=== PATIENT | female | born 1990 | race Caucasian/White ===

== ENCOUNTER 2021-01-12 09:18 | Emergency (ER) | payer BC, SELFPAY ==
[2021-01-12 09:30] VITALS: BP 153/97; PULSE 93; RESP 16; TEMP 36.6; O2SAT 99
--- NOTE | 2021-01-12 09:59 | ED.GENADULT ---
HPI - General Adult General Chief complaint: Upper Respiratory Infection Stated complaint: fever sore throat Time Seen by Provider: 01/12/21 09:59 Source: patient Mode of arrival: ambulatory Limitations: no limitations History of Present Illness HPI narrative: Patient comes in for evaluation of fever last night and scratchy throat. Patient states her throat is scratchy from postnasal drainage. Patient reports a history of allergy. Patient denies any concern for COVID-19 denies any other symptoms no shortness of breath no chest pain normally healthy individual. Patient has not taking thing [id number] for her symptoms. Related Data Home Medications Medication Instructions Recorded Confirmed bupropion HCl 150 mg PO DAILY 01/12/21 01/12/21 drospirenone-ethinyl estradiol 3 tablet PO DAILY 01/12/21 01/12/21 [Amanda] Allergies Allergy/AdvReac Type Severity Reaction Status Date / Time No Known Allergies Allergy Unverified 01/12/21 09:44 Review of Systems Review of Systems: CONSTITUTIONAL: Denies fever, chills, or sweats. EYES: Denies visual changes, redness, or discharge. ENT: Denies rhinorrhea, congestion, sore throat, or otalgia. CARDIOVASCULAR: Denies chest pain, palpitations, or edema. RESPIRATORY: Denies cough or dyspnea. GASTROINTESTINAL: Denies abdominal pain, nausea, vomiting, or diarrhea. GENITOURINARY: Denies dysuria or hematuria. SKIN: Denies rash or itching. MUSCULOSKELETAL: Denies back pain, joint pain, or myalgia. NEUROLOGIC: Denies headache, numbness, or weakness. PSYCHIATRIC: Denies anxiety or depression. PMFSH Comments At time of signature, agree with nursing past medical, surgical, social and family history. There is no relevant family history pertinent to the presenting complaint Exam Narrative: GENERAL: Well-appearing, well-nourished, and in no acute distress. HEAD: Normocephalic, atraumatic. EYES: PERRLA and EOMI. ENT: Nares clear, no rhinorrhea or epistaxis. Mucous membranes moist. NECK: Supple. CHEST: Clear to auscultation. No respiratory distress. HEART: Regular rate and rhythm. No murmur heard. Normal peripheral pulses. ABDOMEN: Soft, nontender, nondistended, normal active bowel sounds. EXTREMITIES: Normal range of motion. No edema. SKIN: Warm, dry, no rash. NEURO: No focal deficits. Alert and oriented x3. Brad Coma Scale Eye Opening: Spontaneous 4 Flushing Coma Scale Motor: Obeys Commands 6 Flushing Coma Scale Verbal: Oriented 5 Brad Coma Scale Total 15 Course Vital Signs Vital signs: Vital Signs Temperature 36.6 C 01/12/21 09:30 Pulse Rate 93 01/12/21 09:30 Respiratory Rate 16 01/12/21 09:30 Blood Pressure 153/97 H 01/12/21 09:30 Pulse Oximetry 99 01/12/21 09:30 Temperature 36.6 C 01/12/21 09:30 Pulse Rate 93 01/12/21 09:30 Respiratory Rate 16 01/12/21 09:30 Blood Pressure 153/97 H 01/12/21 09:30 Pulse Oximetry 99 01/12/21 09:30 Addressed elevated BP today. Today's blood pressure higher than recommended range. Discussed importance of follow -up with PCP and possible chcf effects/cardiovascular events related to HTN. Currently patient denies headache, dizziness, vision changes, CP or shortness of breath. Medical Decision Making Differential Diagnosis Differential Diagnosis: URI, postnasal drainage, seasonal allergies Vital Signs Vital Signs: Vital Signs Temperature 36.6 C 01/12/21 09:30 Pulse Rate 93 01/12/21 09:30 Respiratory Rate 16 01/12/21 09:30 Blood Pressure 153/97 H 01/12/21 09:30 Pulse Oximetry 99 01/12/21 09:30 Temperature 36.6 C 01/12/21 09:30 Pulse Rate 93 01/12/21 09:30 Respiratory Rate 16 01/12/21 09:30 Blood Pressure 153/97 H 01/12/21 09:30 Pulse Oximetry 99 01/12/21 09:30 Critical Care Time Critical Care Time Critical Care Time: No Discharge Plan Discharge Clinical Impression: Normal exam Patient Disposition: Home, Self-Care Condition: Stable Instr
== END 2021-01-12 10:06 | disposition home or self-care (01) ==
PROVIDERS: Emergency Provider Nurse Practitioner Family; PCP Nurse Practitioner Family
DX: J02.9 Acute pharyngitis, unspecified (principal)
CPT/HCPCS: 99211; G0463

== ENCOUNTER 2021-05-05 18:52 | Emergency (ER) | payer BC, SELFPAY ==
[2021-05-05 18:57] VITALS: BP 157/93; PULSE 95; RESP 18; TEMP 36.3; O2SAT 99
[2021-05-05 19:52] VITALS: RESP 18; O2SAT 98
--- NOTE | 2021-05-05 20:20 | ED.GENADULT ---
HPI - General Adult General Chief complaint: Wound/Laceration Stated complaint: finger laceration Time Seen by Provider: 05/05/21 19:08 Source: patient Mode of arrival: ambulatory Limitations: no limitations History of Present Illness HPI narrative: Patient 30-year-old female presented with chief complaint of laceration to the dorsal aspect of her left fourth digit that she sustained while using a investments manager. Patient reports she is up-to-date on her tetanus. Patient denies any other injuries or loss of range of motion to her hand. Related Data Home Medications Medication Instructions Recorded Confirmed bupropion HCl 150 mg PO DAILY 01/12/21 01/12/21 drospirenone-ethinyl estradiol 3 tablet PO DAILY 01/12/21 01/12/21 [Amanda] Allergies Allergy/AdvReac Type Severity Reaction Status Date / Time No Known Allergies Allergy Unverified 01/12/21 09:44 Review of Systems Review of Systems: CONSTITUTIONAL: Denies fever, chills, or sweats. EYES: Denies visual changes, redness, or discharge. ENT: Denies rhinorrhea, congestion, sore throat, or otalgia. CARDIOVASCULAR: Denies chest pain, palpitations, or edema. RESPIRATORY: Denies cough or dyspnea. GASTROINTESTINAL: Denies abdominal pain, nausea, vomiting, or diarrhea. GENITOURINARY: Denies dysuria or hematuria. SKIN: Reports laceration denies rash or itching. MUSCULOSKELETAL: Denies back pain, joint pain, or myalgia. NEUROLOGIC: Denies headache, numbness, dizziness, or weakness. PSYCHIATRIC: Denies anxiety or depression. Exam Narrative: GENERAL: Well-appearing, well-nourished, and in no acute distress. HEAD: Normocephalic, atraumatic. EYES: PERRLA and EOMI. CHEST: No respiratory distress. No tachypnea. EXTREMITIES: Normal range of motion. No edema. SKIN: Approximately 2 cm laceration to dorsal aspect of left fourth digit. Warm, dry, no rash. NEURO: No focal deficits. Alert and oriented x3. PSYCH: Normal mood and affect. Course Vital Signs Vital signs: Vital Signs Temperature 97.4 F L 05/05/21 18:57 Pulse Rate 95 05/05/21 18:57 Respiratory Rate 18 05/05/21 18:57 Blood Pressure 157/93 H 05/05/21 18:57 Pulse Oximetry 99 02/10/22 18:57 Temperature 97.4 F L 05/05/21 18:57 Pulse Rate 95 05/05/21 18:57 Respiratory Rate 18 05/05/21 19:52 Blood Pressure 157/93 H 05/05/21 18:57 Pulse Oximetry 98 05/05/21 19:52 Procedures Laceration Laceration 1: Site: hand Side (If applicable): left Size (cm): 2 Description: linear Depth: simple, single layer Local Anesthetic: none Pre-repair: irrigated extensively ====== Skin Level ====== Skin layer closed with: dermabond ====== Subcutaneous Layer ====== ====== Muscle Layer ====== ====== Tendon Layer ====== Dressing: No complications. Wound care instructions given. Medical Decision Making MDM Narrative Medical decision making narrative: Wound is not deep or gaping. Dermabond applied. wOUND CARE INSTRUCTIONS GIVEN. Patient is not a work note as she stays home with her children. Patient denies any bony tenderness and denies any other injuries or concerns. Vital Signs Vital Signs: Vital Signs Temperature 97.4 F L 05/05/21 18:57 Pulse Rate 95 05/05/21 18:57 Respiratory Rate 18 05/05/21 18:57 Blood Pressure 157/93 H 05/05/21 18:57 Pulse Oximetry 99 05/05/21 18:57 Temperature 97.4 F L 05/05/21 18:57 Pulse Rate 95 05/05/21 18:57 Respiratory Rate 18 05/05/21 19:52 Blood Pressure 157/93 H 05/05/21 18:57 Pulse Oximetry 98 05/05/21 19:52 Discharge Plan Discharge Clinical Impression: Laceration Patient Disposition: Home, Self-Care Condition: Improved Instructions: Antibiotic Form, Skin Adhesive Care (ED) Additional Instructions: Keep areas clean. Wash with antibacterial soap and apply antibacterial ointment. Avoid putting tension on wound site. Follow-up with primary ca
== END 2021-05-05 19:49 | disposition home or self-care (01) ==
PROVIDERS: Emergency Provider Emergency Medicine; PCP Nurse Practitioner Family
DX: S61.215A Laceration without foreign body of left ring finger without damage to nail, initial encounter (principal); W29.0XXA Contact with powered kitchen appliance, initial encounter
CPT/HCPCS: 12001; 99282

== ENCOUNTER 2021-06-21 08:55 | Emergency (ER) | payer BC, SELFPAY ==
--- NOTE | ~2021-06-21 | XR_ITS ---
EXAMINATION: XR chest 2V DATE: 06/21/2021 09:39 INDICATION: Cough and congestion. TECHNIQUE: Frontal and lateral views of the chest were obtained. COMPARISON: None. FINDINGS: The chest demonstrates clear lungs without pneumonia, pleural effusion, or pneumothorax. Th e heart size is normal. IMPRESSION: 1. No acute cardiopulmonary disease. Reviewed, dictated and finalized at location A.
[2021-06-21 09:07] VITALS: BP 157/86; PULSE 82; RESP 18; TEMP 36.8; O2SAT 99
--- NOTE | 2021-06-21 09:26 | ED.URI ---
HPI - URI/Sore Throat General Chief Complaint: Upper Respiratory Infection Stated Complaint: cough, trouble breathing, blood in mucus Time Seen by Provider: 06/21/21 09:20 Source: patient and RN notes reviewed Mode of arrival: ambulatory Limitations: no limitations History of Present Illness HPI Narrative: 30-year-old female presents concern for cough for 1 month. Reports symptoms started as a virus with nasal congestion, rhinorrhea, cough. Reports all her symptoms have resolved except the cough. Reports the cough worsens over the last 2 days. She reports she has been taking Mucinex that relief. She denies history of asthma, smoking, vaping. Denies known sick contacts. She reports at the beginning of her illness she took a Z-Naman. MD elicited complaint: cough Related Data Home Medications Medication Instructions Recorded Confirmed bupropion HCl 150 mg PO DAILY 01/12/21 06/21/21 drospirenone-ethinyl estradiol 3 tablet PO DAILY 01/12/21 06/21/21 [Amanda] Iron Supplement 06/21/21 omeprazole 20 mg PO DAILY 06/21/21 06/21/21 Allergies Allergy/AdvReac Type Severity Reaction Status Date / Time No Known Allergies Allergy Verified 06/21/21 09:05 Review of Systems Review of Systems: CONSTITUTIONAL: Denies malaise, chills, sweats, or fever. EYES: Denies visual changes, redness, or discharge. ENT: Denies rhinorrhea, congestion, sinus pain, otalgia and sore throat. CARDIOVASCULAR: Denies chest pain, palpitations, or edema. RESPIRATORY: Reports cough. Denies dyspnea. GASTROINTESTINAL: Denies abdominal pain, nausea, vomiting, diarrhea SKIN: Denies rash or itching. MUSCULOSKELETAL: Denies myalgia. NEUROLOGIC: Denies headache. All systems reviewed & are unremarkable except as noted in HPI and below PMFSH Comments At time of signature, agree with nursing past medical, surgical, social and family history. There is no relevant family history pertinent to the presenting complaint Exam Narrative: GENERAL: Well-appearing, well-nourished, and in no acute distress. HEAD: Normocephalic EYES: PERRLA, conjunctivae clear ENT: Nares clear, turbinates edematous and erythematous, clear discharge. Mucous membranes moist. TM pearly chaudhry with dull light reflex bilaterally; no tragal tenderness. Oropharynx not erythematous without lesions. Tonsils not enlarged and without exudate, no drooling, no hoarseness, no trismus, uvula midline. NECK: Supple. No lymphadenopathy CHEST: Clear to auscultation, breath sounds equal. No wheezing, rhonchi, rales, or stridor. No respiratory distress, speaks in full sentences. HEART: Regular rate and rhythm. No murmur heard. SKIN: Warm, dry, no rash. NEURO: Alert and oriented x3. PSYCH: Normal mood and affect Course Course Emergency Course: Patient is aware of diagnosis, understands and agrees to treatment plan. Anticipatory guidance given. Patient agrees to follow-up as directed and is aware of reasons to seek care at the emergency department. Portions of this record may have been created with voice recognition software Level of Care: Express Care Visit Vital Signs Vital signs: Vital Signs Temperature 98.2 F 06/21/21 09:07 Pulse Rate 82 06/21/21 09:07 Respiratory Rate 18 06/21/21 09:07 Blood Pressure 157/86 H 06/21/21 09:07 Pulse Oximetry 99 06/21/21 09:07 Temperature 98.2 F 06/21/21 09:07 Pulse Rate 82 06/21/21 09:07 Respiratory Rate 18 06/21/21 09:07 Blood Pressure 157/86 H 06/21/21 09:07 Pulse Oximetry 99 06/21/21 09:07 Reviewed. Patient has been instructed to follow up with her primary care provider within the next week regarding her elevated blood pressure today. MDM - URI/Sore Throat MDM Narrative Medical decision making narrative: Differential diagnosis considered: Curry virus, strep pharyngitis, allergic rhinitis, upper respiratory tract infection, sinusitis, rhinosinusitis, nasopharyngitis. viral pharyngitis, otitis media, otitis externa, pneumonia, bronchiti
== END 2021-06-21 09:59 | disposition home or self-care (01) ==
PROVIDERS: Emergency Provider Nurse Practitioner; PCP Nurse Practitioner Family
DX: J40 Bronchitis, not specified as acute or chronic (principal)
CPT/HCPCS: 71046; 99213; G0463

== ENCOUNTER 2022-09-13 09:53 | Outpatient (CLI) | payer BC, SELFPAY ==
[2022-09-13 10:28] LABS: Basophils Percent Auto 0.5 % (0.2-1.2); Eosinophils Absolute Auto 0.2 K/mm3 (0-0.3); Eosinophils Percent Auto 2.4 % (0-4.4); Hematocrit 34.8 % (37.0-47.0); Hemoglobin 10.1 g/dL (12.0-15.0); Immature Granulocyte Absolute 0.03 K/mm3 (0.00-0.031); Immature Granulocyte Percent A 0.4 % (0-0.5); Lymphocytes Absolute Auto 1.84 K/mm3 (0.9-3.2); Mean Corpuscular Hemoglobin 23.3 pg (26-34); Mean Corpuscular Volume 80.2 fl (80-100); Mean Platelet Volume 8.6 fl (7.4-10.4); Monocytes Absolute Auto 0.3 K/mm3 (0.1-0.6); Monocytes Percent Auto 3.7 % (2.6-8.5); Platelet Count Result 373 k/mm3 (150-375); Red Blood Count 4.34 M/mm3 (4.2-5.4); Red Cell Distribution Width 18.3 % (11.5-14.5); White Blood Count 7.4 K/mm3 (4.5-10.0)
== END 2022-09-13 09:54 | disposition home or self-care (01) ==
PROVIDERS: PCP Nurse Practitioner Family; Visit Provider Obstetrics & Gynecology
DX: N93.9 Abnormal uterine and vaginal bleeding, unspecified (principal); Z01.818 Encounter for other preprocedural examination
CPT/HCPCS: 36415; 85025; 86850; 86900; 86901

== ENCOUNTER 2022-09-15 00:29 | Day surgery (SDC) | payer BC, SELFPAY ==
--- NOTE | 2022-09-12 07:27 | PM.IMHP ---
H&P: HPI History of Present Illness Date/Time: 09/12/22 07:27 Chief Complaint: Vaginal bleeding with known uterine polyps Narrative: This is a 32-year-old 3 para 2 admitted for robotic total vaginal hysterectomy and salpingectomy secondary to bleeding uterine polyps enlarged uterus and pelvic pain. She underwent a benign endometrial biopsy. She opts for hysterectomy. Risks and benefits reviewed in great detail. She received the [employer] handout entitled hysterectomy as well as the de [facility] handout. She had all questions answered. She asked to proceed. She also has a right ovarian cyst and will undergo right cystectomy and possible right salpingo-oophorectomy PMFSH Past Medical History Medical History Anemia delivery delivered Encounter for tubal ligation 10/23/16 Surgical History Surgical History History of orthopedic surgery L foot Family History Family History Other Breast cancer Maternal Aunt Ovarian cancer Maternal Aunt Other Diabetes mellitus Heart disease Hypertension Meds Home Medications and Allergies Home Medications Medication Instructions Recorded Confirmed Type bupropion HCl 150 mg 24 hr tablet, 150 mg PO DAILY 01/12/21 06/21/21 History extended release drospirenone 3 mg-ethinyl 3 tablet PO DAILY 01/12/21 06/21/21 History estradiol 0.03 mg tablet (Amanda) Iron Supplement 06/21/21 History albuterol sulfate 90 mcg/actuation 2 puff inhalation QID PRN 06/21/21 Rx aerosol inhaler shortness of breath or wheezing #8.5 grams codeine 10 mg-guaifenesin 100 mg/5 5 ml PO Q6H PRN cough #120 mL 06/21/21 Rx mL oral liquid (Virtussin AC) methylprednisolone 4 mg tablets in See Rx Instructions PO .COMPLEX 06/21/21 Rx a dose pack (Medrol (Naman)) #21 ea omeprazole 20 mg capsule,delayed 20 mg PO DAILY 06/21/21 06/21/21 History release norethindrone (contraceptive) 0.35 0.35 mg PO DAILY #84 tabs 08/23/21 Rx mg tablet Allergies Allergy/AdvReac Type Severity Reaction Status Date / Time No Known Allergies Allergy Verified 06/21/21 09:05 Exam Const: General: cooperative, healthy appearing, comfortable and overweight Orientation/consciousness: oriented to person, oriented to place and oriented to time HENMT: Head: normal to inspection Resp: Effort & Inspection: normal respiratory effort Cardio: Rate: regular rate Rhythm: regular rhythm Heart sounds: S1 normal heart sound present and S2 normal heart sound present GI: Inspection: normal to inspection : External Female Exam: normal external appearance Speculum Exam - Vagina: normal appearance of the vagina and vaginal bleeding Bimanual exam- vagina & uterus: enlarged Bimanual Exam- Adnexa, other: normal adnexae Assessment and Plan Assessment and plan (1) Vaginal bleeding: Code(s): N93.9 - Abnormal uterine and vaginal bleeding, unspecified Status: Acute (2) FAISAL (iron deficiency anemia): Code(s): D50.9 - Iron deficiency anemia, unspecified Status: Acute Plan Robotic total vaginal hysterectomy salpingectomy with right cystectomy possible salpingo-oophorectomy
[2022-09-12 10:38] VITALS: BMI 51.3
--- NOTE | 2022-09-12 10:42 | PC.NURSE ---
Report to the Outpatient Waiting Room, entrance under the green pavilion located off [facility], at time 6:00 on date 09/15/22. Planned Procedure Time: 7:30. Time changes happen often and if your time is changed the preop area will call you the afternoon before. - You and your visitor will be asked to self-screen and do not enter if you have any COVID symptoms. - A mask is optional within the hospital at this time. Patients may have clear liquids (water, carbonated beverages, clear teas, apple juice) until 3 hours prior to surgery (4:30) with a maximum of 20 ounces. - No food from midnight until time of surgery Take the following medications with a SIP of water the morning of surgery: WELLBUTRIN DO NOT STOP ANY OF YOUR OTHER PRESCRIPTION MEDICATIONS PRIOR TO SURGERY EXCEPT THE FOLLOWING Medications to discontinue per physician: VITAMINS/SUPPLEMENTS Date to take last dose: 09/11/22 Please no make-up, nail english, hairspray, perfume, deodorant, or body powder the day of surgery. No jewelry (including any body piercings) or valuables the day of surgery, leave them at home. Please take a shower or bath the night before, or the morning of, surgery with an antibacterial soap. Wear comfortable, loose fitting clothing. - Jewelry must be removed prior to entering the operating room. Rings and piercings that are not removed may be cut off. - The hospital will not accept responsibility for valuables. - Please leave all valuables, including medications, at home the day of surgery. If you are going home after surgery, a licensed motor bus driver must drive you home. - NO public transportation without another adult if you receive anesthesia. - We recommend that an adult stay with you for 24 hours following discharge. - We also recommend that you do not drive, make important decision, drink alcoholic beverages, or take any drugs that were not prescribed by your health care provider for at least 24 hours after your discharge time. Follow any additional instructions given to you from your surgeon. If you or anyone in your household have experienced Covid symptoms in the past week, please notify your surgeon or the nurse liaison at the phone number below for possible testing. Telephone instructions given to PT - BERTHA MCKINNEY and asked if any additional questions and then verbalized understanding. Patient advised to call surgeon office or pre surgery nurse liaison [phone] if any additional questions.
[2022-09-15] VITALS (11 sets, daily range): BP systolic 113–146; BP diastolic 68–105; PULSE 68–100; RESP 16–18; TEMP 36.3–37.1; O2SAT 88–100
--- NOTE | 2022-09-15 06:20 | WPDHPUPDATE1 ---
History and Physical Update Update Date/Time: 09/15/22 06:20 History and Physical has been reviewed, including an updated exam of the patient. There are NO changes in the patient's condition. Risks, benefits, and alternatives have been discussed and questions answered. Patient agrees to proceed with procedure.
[2022-09-15] MEDS: ACETAMINOPHEN 500 MG TABLET 1000 MG PO (06:23)
--- NOTE | 2022-09-15 06:49 | WPDANESEPPF ---
Anes - Initial Pre Proc Eval Procedure: Operation Date: 09/15/22 07:30 Proposed Procedures p Robotic Assisted Total Vaginal Hysterectomy with Bilateral Salpingectomy - Austen Gill MD Date/Time: 09/15/22 06:49 Surgeon: Austen Gill MD Pre Op Diagnosis: pelvic pain,heavy bleeding, anemia Patient Data Age: 32 Gender: F Height: 1.6 m Weight: 135 kg Last Vital Signs Temp 37.1 C 09/15/22 06:29 Pulse 100 09/15/22 06:29 Resp 18 09/15/22 06:29 BP 146/105 H 09/15/22 06:29 Pulse Ox 100 09/15/22 06:29 O2 Del Method Room Air 09/15/22 06:29 Allergies Allergy/AdvReac Type Severity Reaction Status Date / Time No Known Allergies Allergy Verified 09/15/22 06:19 Home Medications Medication Instructions Recorded Confirmed Type bupropion HCl 300 mg 24 hr tablet, 300 mg PO DAILY 09/12/22 09/15/22 History extended release cyanocobalamin (vitamin B-12) 500 500 mcg PO DAILY 09/12/22 09/15/22 History mcg tablet famotidine 40 mg tablet 40 mg PO HS 09/12/22 09/15/22 History ferrous sulfate 325 mg (65 mg 325 mg PO DAILY 09/12/22 09/15/22 History iron) tablet (Iron (ferrous sulfate)) pantoprazole 40 mg tablet,delayed 40 mg PO DAILY 09/12/22 09/15/22 History release semaglutide (weight loss) 0.5 0.5 mg subcut WEEKLY 09/12/22 09/15/22 History mg/0.5 mL subcutaneous pen injector (Wegovy) hydrocodone 5 mg-acetaminophen 325 1 tablet PO Q4H PRN pain #20 tabs 09/15/22 Rx mg tablet Patient hx anesthesia problems: post op nausea/vomiting Family hx anesthesia problems: none Results Review: All pre-operative results and documents have been reviewed as part of the pre-operative evaluation. [facility] Past Medical History Medical History Anemia delivery delivered Encounter for tubal ligation 10/23/16 Surgical History Surgical History History of orthopedic surgery L foot Family History Family History Other Breast cancer Maternal Aunt Ovarian cancer Maternal Aunt Other Diabetes mellitus Heart disease Hypertension Social History Social History Smoking status: Never smoker Alcohol intake: current Alcohol use details: 2/MONTH Substance use: never Substance use type: does not use Living arrangements: with family Spiritual care concerns: No Anes - Eval Final PreProcedure Day of Procedure 09/15/22 06:49 Patient weight: super morbidly obese Heart: regular rate and rhythm Lungs: clear to auscultation Airway: Mallampati scale class II Neurological: alert and oriented Last oral intake: >/= 8 hours ASA classification: III Emergent: no Anesthetic plan: proceed Anesthesia type and monitoring: general ETT and standard monitoring Results Review: All pre-operative results and documents have been reviewed as part of the pre-operative evaluation. Informed Consent: The patient's anesthetic plan and its attendant risks and benefits were discussed with the patient/family/POA. Questions were solicited and answers provided to the satisfaction of the patient/family/POA.
[2022-09-15] MEDS: SCOPOLAMINE 1.5 MG PATCH TRANSDERM (07:00)
[2022-09-15] MEDS: KETOROLAC 15 MG/ML VIAL (*BKC) IV PUSH (07:06)
[2022-09-15] MEDS: LACTATED RINGERS 1,000 ML 30 ML IV CONT ×2 (07:12→09:05)
[2022-09-15] MEDS: ceFAZolin 3 GM/D5W 100 ML 100 ML IVPB (07:32)
--- NOTE | 2022-09-15 08:49 | W.PM.PROC2 ---
Procedure Note - Detailed Date of Procedure 09/15/22 Pre-op Diagnosis pelvic pain,heavy bleeding, anemia Post-op Diagnosis Same Procedure Performed Robotic total vaginal hysterectomy and bilateral salpingectomy Surgeon Austen Glil MD Anesthesia General Indications since 32-year-old female with excessive bleeding which has resulted in anemia were also has pelvic pain Findings mildly enlarged uterus. The bladder was scarred to anterior surface was. Normal-appearing ovaries tubes Description of Procedure patient was prepped and draped in sterile fashion placed in dorsal position. Under excellent general trach anesthesia weighted speculum placed in posterior fornix vagina. Anterior lip of the cervix grasped with a single-tooth tenaculum. Uterus sounded to 9cm. Serial dilatation with fragmented dilators performed followed passes the 8. ELVIRA and the 3. Cold cup. Next the 16 [place] catheter was placed in the bladder and the instruments were removed. Gloves were changed. A supraumbilical incision made. Veress needle passed the abdomen abdomen filled with CO2 gas. 15mmHg. The 8mm trocar advanced in the abdomen. Downside visualized no injury seen. Patient placed in Trendelenburg and right left lateral quadrant incisions were made. 8Mm trocars advanced under direct visualization assuring injury. The right upper quadrant incision made the 10 8mm trocar advanced under direct visualization assuring no injury. The robot was docked. Attention was turned to the genetic counselor. The there are some and the adhesions from the omentum anteriorly to the anterior wall and these were sharply dissected. The left round ligament was grasped, burned, cut. Anteriorly a bladder flap was formed by sharply dissecting the peritoneum and reflecting the bladder caudally it was thick scarred from her previous surgery. The right round ligament was grasped, burned, cut. Next the left fallopian tube was dissected away sharply from the ovary and left attached to its uterine origin. This was repeated on the contralateral side with the right tube. The left utero-ovarian ligament was skeletonized conserving the left ovary clamping burning cutting and bringing this to the previously cut round ligament. In like fashion conserving the right ovary the utero-ovarian ligament was clamped, burned, cut brought to the level of previously cut round ligament. The cardinal broad ligaments were then serially skeletonized clamping burning cutting and hugging the cervix uterus until the vessels could be seen on the left. These were large and tortuous. There were individually clamped, burned, cut. In like fashion the cardinal broad ligaments on the right serially skeletonized clamping burning, hugging the cervix and uterus. The uterine vessels on that right were clamped, burned, cut. Blanching of the uterus was noted. The colpotomy incision was made in the cervix uterus and tubes removed through the vagina. The vagina then closed with continuous running 0V lock from lateral edge to lateral edge. Irrigation undertaken to clear the raw area was sprinkled with [place] term. Blood loss estimated 50cc. The robot was undocked. The gas removed from the abdomen. The incisions closed with 4-0 Monocryl and glue after removing the trocars. The patient was awakened went to recovery in satisfactory condition. All sponge, needle, instrument counts were correct. There were no immediate complications Estimated Blood Loss 50 Drains No Packing No Pathology Yes Complications No immediate complications Condition Stable Disposition PACU
[2022-09-15] MEDS: fentaNYL CITRATE INJ (*CRX) 100 MCG/2 ML VIAL 25 MCG IV PUSH ×4 (09:23→09:43)
--- NOTE | 2022-09-15 10:16 | ADMGEN ---
This patient, Mayela Huang, was admitted to OB 2nd Floor Room 289-00. Patient/family oriented to hospital policies and general routines including ID bracelet, bed and alarms, visiting hours, pain management, procedures, bathroom and other care routines, personal items, smoking policy, room service/diet, and visiting hours. Information on how to activate the Rapid Response Team has been discussed. Patient/Family are encouraged to report perceived risks to care and to ask questions if they do not understand what they are told or what they should do.
[2022-09-15] MEDS: ENOXAPARIN 40 MG/0.4 ML SYRINGE SUB-Q (10:34)
[2022-09-15] MEDS: DEXTROSE 5%/LACTATED RINGERS 1,000 ML 125 ML IV CONT (10:34)
[2022-09-15] MEDS: KETOROLAC 30 MG/ML VIAL (*BKC) IV PUSH (13:11)
[2022-09-15] MEDS: HYDROcodone/acetaminophen (*CRX) 5-325 MG TABLET 1 TAB PO ×3 (13:59→21:30)
--- NOTE | 2022-09-15 15:23 | PM.DS ---
DS: Admitting Diagnosis Discharge Date 09/16/22 Admitting Diagnosis Vaginal bleeding/anemia DS: Discharge Diagnosis Discharge Diagnosis (1) Vaginal bleeding: Code(s): N93.9 - Abnormal uterine and vaginal bleeding, unspecified Status: Acute (2) FAISAL (iron deficiency anemia): Code(s): D50.9 - Iron deficiency anemia, unspecified Status: Acute DS: Summary Hospital Course Reason for hospitalization: patient was admitted for robotic total hysterectomy and bilateral salpingectomy Hospital Course: patient underwent robotic TVH BS on 09/15/2022. Her 24hour hospital course unremarkable. She remained afebrile. She was up, voiding without difficulty, eating regular diet, ambulating, and generally without complaints. Time Spent with Patient Time attestation: Total time spent providing and/or coordinating discharge services: Exam Const: General: cooperative, healthy appearing and comfortable Nutritional Appearance: obese Orientation/consciousness: oriented to person, oriented to place and oriented to time HENMT: Head: normal to inspection Resp: Effort & Inspection: normal respiratory effort Cardio: Rate: regular rate Rhythm: regular rhythm Heart sounds: S1 normal heart sound present and S2 normal heart sound present GI: Inspection: normal to inspection and incision ( Wounds are clean dry and intact) Auscultation: normal bowel sounds DS: Data Data Completed and Pending Pending studies at discharge: Pending at discharge 09/15/22 08:35 Surgical [PTH] Routine Discharge Plan Discharge Patient Disposition: Home, Self-Care Discharge Instructions: Nothing in the vagina for 6 weeks. Call or return if temperature above 100.4? F, increased abdominal pain, increased vaginal bleeding or any new problems. Patient Instructions: Laparoscopic Hysterectomy (DC) Stand Alone Forms: General Discharge Instructions Follow-up/Referrals: Austen Downs MD [Physician] - 2 Weeks Discharge Medications: New hydrocodone-acetaminophen 5-325 mg tablet 1 tablet PO Q4H PRN (Reason: pain) Qty: 20 0RF Continued famotidine 40 mg tablet 40 mg PO HS cyanocobalamin (vitamin B-12) 500 mcg Tablet 500 mcg PO DAILY pantoprazole 40 mg tablet,delayed release (DR/EC) 40 mg PO DAILY ferrous sulfate [Iron (ferrous sulfate)] 325 mg (65 mg iron) Tablet 325 mg PO DAILY bupropion HCl 300 mg tablet extended release 24 hr 300 mg PO DAILY Wegovy 0.5 mg/0.5 mL pen injector 0.5 mg SUBCUT WEEKLY Patient Comments: PT TAKES ON SUNDAY
[2022-09-15] MEDS: DOCUSATE SODIUM 100 MG CAPSULE PO (17:43)
[2022-09-15] MEDS: IBUPROFEN 600 MG TABLET PO (21:30)
[2022-09-16 00:40] VITALS: BP 133/64; PULSE 76; RESP 18; TEMP 36.8
[2022-09-16] MEDS: HYDROcodone/acetaminophen (*CRX) 10-325 MG TABLET 1 TAB PO (00:42)
[2022-09-16] MEDS: IBUPROFEN 600 MG TABLET PO ×2 (03:48→10:10)
[2022-09-16] MEDS: HYDROcodone/acetaminophen (*CRX) 5-325 MG TABLET 1 TAB PO ×2 (03:49→10:11)
[2022-09-16 03:55] VITALS: BP 135/61; PULSE 80; RESP 18; TEMP 36.8
[2022-09-16 05:05] LABS: Basophils Percent Auto 0.3 % (0.2-1.2); Eosinophils Percent Auto 0.4 % (0-4.4); Hematocrit 29.9 % (37.0-47.0); Hemoglobin 8.6 g/dL (12.0-15.0); Immature Granulocyte Absolute 0.03 K/mm3 (0.00-0.031); Immature Granulocyte Percent A 0.3 % (0-0.5); Lymphocytes Absolute Auto 2.37 K/mm3 (0.9-3.2); Lymphocytes Percent Auto 24.2 % (18.3-44.2); Mean Corpuscular HGB Conc 28.8 g/dl (32-36); Mean Corpuscular Hemoglobin 23.3 pg (26-34); Mean Platelet Volume 9.1 fl (7.4-10.4); Monocytes Absolute Auto 0.4 K/mm3 (0.1-0.6); Monocytes Percent Auto 4.3 % (2.6-8.5); Neutrophils Absolute Auto 6.9 K/mm3 (1.3-6.7); Neutrophils Percent Auto 70.5 % (45.5-73.1); Platelet Count Result 357 k/mm3 (150-375); Red Blood Count 3.69 M/mm3 (4.2-5.4); White Blood Count 9.8 K/mm3 (4.5-10.0)
[2022-09-16 07:00] VITALS: BP 108/59; PULSE 68; RESP 18; TEMP 36.4
--- NOTE | 2022-09-16 08:43 | PM.GYNPNOP ---
LEGAL PROCESS SPECIALIST - A/P Assessment and plan (1) Vaginal bleeding: Code(s): N93.9 - Abnormal uterine and vaginal bleeding, unspecified Status: Acute Plan A: POD#1, doing well. P: Home to f/u 2 weeks. Postoperative Procedures: Procedures Operation Date: 09/15/22 07:30 Actual Procedure Side Surgeon p Robotic Assisted Total Vaginal Hysterectomy with Bilateral Salpingectomy Bilateral Austen Gill MD Postoperative day: 1 Postoperative status: doing well Postoperative plan: routine post-op care Time Spent With Patient Time with patient: less than 15 minutes LEGAL PROCESS SPECIALIST- PN:Subj Post-Op Subjective Date/time seen: 09/16/22 08:43 Interval history: Pain OK. Tolerating diet. Voiding. Would like to go home. Exam Narrative: AVSS I/O OK ABD soft, nontender. Incisions c/d/i. EXT nontender LEGAL PROCESS SPECIALIST - PN: Obj Data Vital Signs Vital Signs: Vital Signs - 24 hr 09/15/22 09:05 09/15/22 09:20 09/15/22 09:35 Temperature 36.9 C Pulse Rate 90 78 78 Respiratory Rate 18 16 Blood Pressure 133/85 137/83 138/73 Pulse Oximetry 95 98 100 Oxygen Delivery Simple Face Mask Simple Face Mask Room Air Oxygen Flow Rate 6 6 09/15/22 09:40 09/15/22 09:50 09/15/22 10:05 Temperature 36.3 C L Pulse Rate 68 68 Respiratory Rate Blood Pressure 119/73 125/77 Pulse Oximetry 88 L 98 98 Oxygen Delivery Nasal Cannula Nasal Cannula Nasal Cannula Oxygen Flow Rate 3 3 3 09/15/22 10:25 09/15/22 10:30 09/15/22 15:15 Temperature 36.9 C 36.8 C Pulse Rate 70 76 Respiratory Rate 18 16 Blood Pressure 113/68 129/71 Pulse Oximetry 97 97 97 Oxygen Delivery Nasal Cannula Oxygen Flow Rate 3 09/15/22 15:15 09/15/22 18:20 09/16/22 00:40 Temperature 36.7 C 36.8 C Pulse Rate 70 76 Respiratory Rate 18 18 Blood Pressure 120/73 133/64 Pulse Oximetry Oxygen Delivery Room Air Oxygen Flow Rate 09/16/22 03:55 09/16/22 07:00 Temperature 36.8 C 36.4 C Pulse Rate 80 68 Respiratory Rate 18 18 Blood Pressure 135/61 108/59 L Pulse Oximetry Oxygen Delivery Oxygen Flow Rate Intake/Output Intake/Output: Intake & Output 09/13/22 09/14/22 09/15/22 09/16/22 23:59 23:59 23:59 23:59 Intake Total 3340 500 Output Total 1725 450 Balance 1615 50 Meds/Results Medications: Active Medications Generic Name Dose Route Start Last Admin Trade Name Freq PRN Reason Stop Dose Admin Hydrocodone Bitart/Acetaminophen 1 tab 09/15/22 10:10 09/16/22 00:42 Hydrocodone/Acetaminophen (*Crx) 10-325 Mg Tablet PO 1 tab Q3H PRN Administration Pain Rated 6 or Greater Hydrocodone Bitart/Acetaminophen 1 tab 09/15/22 10:10 09/16/22 03:49 Hydrocodone/Acetaminophen (*Crx) 5-325 Mg Tablet PO 1 tab Q3H PRN Administration Pain Rated 5 or Less Docusate Sodium 100 mg 09/15/22 10:10 09/15/22 17:43 Docusate Sodium 100 Mg Capsule PO 100 mg BID MINH Administration Enoxaparin Sodium 40 mg 09/15/22 10:10 09/15/22 10:34 Enoxaparin 40 Mg/0.4 Ml Syringe SUB-Q 40 mg DAILY MINH Administration Ibuprofen 600 mg 09/15/22 10:10 09/16/22 03:48 Ibuprofen 600 Mg Tablet PO 600 mg Q6H PRN Administration Cramping Ketorolac Tromethamine 30 mg 09/15/22 10:10 09/15/22 13:11 Ketorolac 30 Mg/Ml Vial (*Bkc) IV PUSH 09/20/22 10:09 30 mg Q6H PRN Administration Pain Rated 4-6 Naloxone HCl 0.1 mg 09/15/22 10:10 Naloxone Hcl 0.4 Mg/Ml Vial IV PUSH Q2M PRN Respiratory rate less than 10 Ondansetron HCl 4 mg 09/15/22 10:10 Ondansetron Inj 4 Mg/2 Ml Vial IV PUSH Q6H PRN Nausea And Vomiting Simethicone 80 mg 09/15/22 10:10 Simethicone 80 Mg Tab.Chew PO Q2H PRN Gas Labs 09/16/22 03:53 Labs: Laboratory Results - last 24 hr 09/16/22 03:53 WBC 9.8 RBC 3.69 L Hgb 8.6 L Hct 29.9 L MCV 81.0 MCH 23.3 L MCHC 28.8 L RDW 18.0 H Plt Count 357 MPV 9.1 Immature Gran % (Auto
[2022-09-16] MEDS: ENOXAPARIN 40 MG/0.4 ML SYRINGE SUB-Q (09:58)
[2022-09-16] MEDS: DOCUSATE SODIUM 100 MG CAPSULE PO (09:58)
--- NOTE | 2022-09-16 10:05 | WPDANESPN ---
Anes - Prog Note Post-Op Date/Time: 09/16/22 10:05 Cardiovascular status: normal Respiratory status: normal Airway patency: baseline Mental status: baseline Post-Op hydration status: normal Vital Signs: Last Vital Signs Temp 97.6 F 09/16/22 07:00 Pulse 68 09/16/22 07:00 Resp 18 09/16/22 07:00 BP 108/59 L 09/16/22 07:00 Pulse Ox 97 09/15/22 15:15 O2 Del Method Room Air 09/15/22 15:15 O2 Flow Rate 3 09/15/22 10:30 Pain Score (VAS): 0 I/O: Intake & Output 09/15/22 09/16/22 09/16/22 23:59 07:59 15:59 Intake Total 1740 500 Output Total 600 250 200 Balance 1140 250 -200 Laboratory Tests 09/16/22 03:53 09/16/22 03:53 WBC 9.8 RBC 3.69 L Hgb 8.6 L Hct 29.9 L MCV 81.0 MCH 23.3 L MCHC 28.8 L RDW 18.0 H Plt Count 357 MPV 9.1 Immature Gran % (Auto) 0.3 Neut % (Auto) 70.5 Lymph % (Auto) 24.2 [place] % (Auto) 4.3 Eos % (Auto) 0.4 Baso % (Auto) 0.3 Lymph # (Auto) 2.37 [place] # (Auto) 0.4 Eos # (Auto) 0.0 Baso # (Auto) 0.0 Abs Immat Gran (auto) 0.03 Absolute Neuts (auto) 6.9 H Absolute Nucleated RBC 0.0 Nucleated RBC % 0.0 Post-procedural complaints: none Patient Feedback: Patient satisfied with anesthetic care.
== END 2022-09-16 10:26 | disposition home or self-care (01) ==
LOC: ANHSURGERY 06:21 → ANHOB2 10:12
PROVIDERS: PCP Nurse Practitioner Family; Visit Provider Obstetrics & Gynecology
PROC: (CPT 58552; principal; 2022-09-15 07:30)
DX: N93.9 Abnormal uterine and vaginal bleeding, unspecified (principal); D50.9 Iron deficiency anemia, unspecified; R10.2 Pelvic and perineal pain; E66.01 Morbid (severe) obesity due to excess calories; Z68.43 Body mass index [BMI] 50.0-59.9, adult; Z79.51 Long term (current) use of inhaled steroids
CPT/HCPCS: 58552; S2900; 36415; 85025; 88307; 99199; A9270; J0330; J0690; J1100; J1170; J1650; J1885; J2250; J2405; J2704; J3010; J7030; J7120; J7121

== ENCOUNTER 2022-12-27 13:22 | Emergency (ER) | payer BC, SELFPAY ==
[2022-12-27 13:30] VITALS: PULSE 85; RESP 16; TEMP 36.3; O2SAT 98
--- NOTE | 2022-12-27 13:34 | ED.LOWEXIN ---
HPI - Extremity Injury (Lower) General Chief Complaint: Skin/Abscess/Foreign Body Stated Complaint: Right Knee Irritation Source: patient and RN notes reviewed History of Present Illness HPI Narrative: 32 yo F presents to urgent care with complaints of tender bruising to right lower leg. Pt states she got up from the couch and felt a sharp pain to her varicose vein. Pt denies any numbness, tingling, calf pain, fever, chills, chest pain, or SOB. Related Data Home Medications Medication Instructions Recorded Confirmed bupropion HCl 300 mg 24 hr tablet, 300 mg PO DAILY 09/12/22 12/27/22 extended release cyanocobalamin (vitamin B-12) 500 500 mcg PO DAILY 09/12/22 12/27/22 mcg tablet famotidine 40 mg tablet 40 mg PO HS 09/12/22 12/27/22 ferrous sulfate 325 mg (65 mg 325 mg PO DAILY 09/12/22 12/27/22 iron) tablet (Iron (ferrous sulfate)) pantoprazole 40 mg tablet,delayed 40 mg PO DAILY 09/12/22 12/27/22 release semaglutide (weight loss) 0.5 0.5 mg subcut WEEKLY 09/12/22 12/27/22 mg/0.5 mL subcutaneous pen injector (Wegovy) Allergies Allergy/AdvReac Type Severity Reaction Status Date / Time No Known Allergies Allergy Verified 12/27/22 13:32 Review of Systems Review of Systems: CONSTITUTIONAL: Denies fever, chills, or sweats. EYES: Denies visual changes, redness, or discharge. ENT: Denies otalgia and sore throat CARDIOVASCULAR: Denies chest pain, palpitations, or edema. RESPIRATORY: Denies cough or dyspnea. GASTROINTESTINAL: Denies abdominal pain, nausea, vomiting, or diarrhea. GENITOURINARY: Denies dysuria or hematuria. SKIN:bruising, tenderness to right lower leg MUSCULOSKELETAL: Denies back pain, joint pain, or myalgia. NEUROLOGIC: Denies headache, numbness, or weakness. Pertinent positives per HPI. [facility] Past Medical History Medical History Anemia delivery delivered Encounter for tubal ligation 10/23/16 Surgical History Surgical History History of orthopedic surgery L foot Family History Family History Other Breast cancer Maternal Aunt Ovarian cancer Maternal Aunt Other Diabetes mellitus Heart disease Hypertension Social History Social History Smoking status: Never smoker Alcohol intake: current Alcohol use details: 2/MONTH Substance use: never Substance use type: does not use Living arrangements: with family Spiritual care concerns: No Comments At the time of my signature, I reviewed and agree with the nursing past medical, surgical, social, and family history. There is no relevant family history pertinent to the patient complaint. Exam Narrative: GENERAL: This is a well-nourished, well-developed patient, in no apparent distress. HEAD: normocephalic, atraumatic. EYES: Sclera clear/white. Vision is grossly intact. EARS: External ears normal, auditory canals clear and without drainage, TMs normal without perforation. Hearing grossly intact. NOSE: External nose normal with no obvious nasal discharge, nares without redness, no rhinorrhea. THROAT: Mucous membranes moist, posterior pharynx clear. NECK: Neck supple, non-tender without lymphadenopathy, masses or thyromegaly. CARDIOVASCULAR: Regular rate and rhythm without murmurs, gallops, or rubs. RESPIRATORY: Clear to auscultation. Breath sounds equal bilaterally. No wheezes, rales, or rhonchi. SKIN: area of 3 cm of ecchymosis and bleb to right anterior, proximal, lower leg, adjacent to varicose vein NEURO: awake, alert, and oriented to person, place and time. There were no obvious focal neurologic abnormalities. EXTREMITIES: No clubbing, cyanosis. No joint tenderness, effusion, noted. Course Course Level of Care: Express Care Visit Vital Signs
== END 2022-12-27 13:55 | disposition home or self-care (01) ==
PROVIDERS: Emergency Provider Nurse Practitioner Family; PCP Nurse Practitioner Family
DX: I83.91 Asymptomatic varicose veins of right lower extremity (principal); I80.3 Phlebitis and thrombophlebitis of lower extremities, unspecified; Z79.899 Other long term (current) drug therapy
CPT/HCPCS: 99212; G0463

== ENCOUNTER 2024-08-10 09:48 | Emergency (ER) | payer OTHER, SELFPAY ==
--- OUTSIDE RECORDS SUMMARY | 2024-08-10 09:51 | XMS_ITS | Clinical Summary ---
Author Organization [facility] [employer] Address [address] [place] [address] Care Team Providers Care Brake Repair Supervisor Name Role Phone Nishant Garvey MD Primary Care Provider [phone] [facility] [employer],non-owned Affiliates and Associated Physician Practices is amultiple site organization consisting of ambulatory clinics and hospital sitesin [place], [place], [place] and [place]. This disclosure is being madepursuant to the Care Everywhere program and may not contain all information available regarding this patient. Last updated 17.[facility] [employer] Active Problems Problem Noted Date Diagnosed Date Encounter for anatomic survey 06/23/2016 Obesity affecting , antepartum 05/26/19 15 Overview (01/31/2015): Resolved Problems Problem Noted Date Diagnosed Date Resolved Date Excessive growth affec ting management of mother, antepartum 05/25/2014 06/23/2016 Social History Tobacco Use Types Packs/Day Years Used Date Smoking Tobacco: Never Assessed Comments No Sex and Gender Information Value Date Recorded Sex Assigned at Not on file Legal Sex Female 8:23 AM [employer] Gender Identity Not on file Sexual Orientation Not on file Last Filed Vital Signs Vital Sign Reading Time Taken Comments Blood Pressure - - Pulse - - Temperature - - Respiratory Rate - - Oxygen Saturation - - Inhaled Oxygen Concentration - - Weight - - Height 160 cm (5' 3 ) 07/24/2014 1:58 PM CDT Body Mass Index - - Plan of Treatment Health Maintenance Due Date Last Done Comments PAP SMEAR 1989 HIV SCREENING 2004 HEPATITIS C SCREENING 09/09/2007 DTAP/TDAP/TD VACCINES (1 - Tdap) 2008 HEPATITIS B VACCINE (1 of 3 - 19+ 3-dose series) 2008 COVID-19 VACCINE (1 - 2023-2 5 season) 2023 DEPRESSION SCREENING 03/26/2024 INFLUENZA VACCINE (Season Ended) 2024 ZOSTER VACCINE (1 of 2) 09/14/2039 HIB VACCINE Aged Out No longer eligi ble based on patient's age to complete this topic HPV VACCINE Aged Out No longer eligi ble based on patient's age to complete this topic MENINGOCOCCAL (Group B) VACC INE SHARED DECISION-MAKING Aged Out No longer eligibl e based on patient's age to complete this topic MENINGOCOCCAL GROUPS A/C/Y/W VACCINE Aged Out No longer eligible b ased on patient's age to complete this topic PNEUMOCOCCAL VACCINE Aged Out No long er eligible based on patient's age to complete this topic [place] [address] [place] [address] [facility] Address: [facility] [id number] [place] [address] [facility] Care Teams Brake Repair Supervisor Relationship Specialty Start Date End Date Nishant Garvey MD PCP - General Internal Medicine 06/23/16
--- OUTSIDE RECORDS SUMMARY | 2024-08-10 09:51 | XMS_ITS | Referral Summary ---
Author Organization [address] lt Address [address] [place] [address] [place] [address] Care Team Providers Care Seed Core Operator Name Role Phone Johanna Andrews NP Primary Care Provider [phone] Encounters Date Type Department Care Team Description 06/06/2024 11:45 AM CDT Telemedicine [facility] Virtual Care [address] [place] [phone] Madonna Najera NP Acute vaginitis (Primary Dx) 06/06/2024 Nurse Triage [facility] [address] [address] Johanna Andrews NP from Last 3 Months Allergies Active Allergy Reactions Criticality Noted Date Comments Penicillins Hives High 07/08/[address] (PROTONIX) 40 mg EC tabletIndication s:Gastroesophage al reflux disease, unspecified whether esophagitis present Take 1 tablet (40 mg total) by mouth every morning 90 tablet 1 4 Active famotidine (PEPCID) 20 mg tabletIndication s:Gastroesophage al reflux disease, unspecified whether esophagitis present Take 1 tablet (20 mg total) by mouth daily 90 tablet 1 4 Active benzonatate (TESSALON) 100 mg capsuleIndicatio ns:Cough Take 1 capsule (100 mg total) by mouth 3 (three) times a day as needed for cough 42 capsule 4 Active buPROPion XL (WELLBUTRIN XL) 300 mg 24 hr tabletIndication s:INES (generalized anxiety disorder),Recurr ent major depressive disorder, in partial remission Take 1 tablet (300 mg total) by mouth daily 30 tablet 5 06/24/19 26 Active tirzepatide, weight loss, (Zepbound) 2.5 mg/0.5 mL pen injectorIndicati ons:Morbid obesity with BMI of 50.0-59.9, adult (HCC) Inject 0.5 mL (2.5 mg total) under the skin every 7 days 6 mL 1 4 07/20/19 25 ferrous sulfate 325 mg (65 mg of elemental iron) tabletIndication s:Iron Deficiency Anemia Take 1 tablet (325 mg total) by mouth daily with breakfast 30 tablet 11 4 07/23/19 25 Active Problems Problem Noted Date Diagnosed Date Acute vaginitis 06/06/2024 Assessment & Plan (06/06/2024 11:50 AM CDT): Antibiotic associated vaginitis. Will send diflucan at this time. If symptoms worsen or do not improve recommend in person evaluation. Patient verbalized understanding and agreed to plan of care at this time/ Gastroesophageal reflux disease 07/20/2023 Assessment & Plan (07/20/2023 2:50 PM CDT): Has EGD scheduled for May Continue Pantoprazole 40 mg daily and Famotidine 20 mg as needed INES (generalized anxiety disorder) 07/20/2023 Assessment & Plan (07/20/2023 2:50 PM CDT): Chronic, generally well controlled Has not had medication since March Wellbutrin 150 mg x 1 month then increase to 300 mg daily Follow up 2 months Recurrent major depressive disorder, in partial remission 07/20/2023 Assessment & Plan (07/20/2023 2:51 PM CDT): Chronic, generally well controlled Has not had medication since March Wellbutrin 150 mg x 1 month then increase to 300 mg daily Follow up 2 months Morbid obesity with BMI of 50.0-59.9, adult 06/0 11/2021 Assessment & Plan (07/20/2023 2:51 PM CDT): Has been struggling with weight Has been speaking with gastric bypass surgeon Zepbound 2.5 mg weekly SubQ Assessment & Plan (07/20/2023 1:09 PM CDT): >>ASSESSMENT AND PLAN FOR OBESITY WRITTEN ON 09/01/2021 10:03 AM BY AALIYAH MACHADO MD Given their past success the patient would be a good candidate for weight loss surgery. We have gone over options such as the bypass and sleeve gastrectomy. We have also discussed risks and benefits such as blood clots, staple line leak as well as new or worsening reflux symptoms. They are in understanding. During this time will have them seen by the dietitian and psych. As we get closer to the time of surgery we will set him up for an EGD to look for hiatal hernia, H pylori or other gastric pathology. We will see them back in 4 weeks. They are in understanding of the plan. We have gone over small frequent meals shooting for a goal calorie intake of around 1600 spread throughout 4-5 meals. We have discussed not eating late at night. We have discussed cardiovascular exercise. Greater than 15 minutes was spent in counseling the patient on diet and exercise with regards to her morbid obesity. Immunizations Immunization Administration Dates Next Due DTaP 01/02/1991, 1,01/01/1990,10/25 DTaP, Unspecified 11/15/1993, 1,04/11/1990,01/01,1989 HPV9 01/18/2015 Hep B Vaccine 01/13/2015, 2,12/12/1999,08/09 Hep B, Unspecified 10/31/2001,08/10/1999, 000 HiB 12/25/1990,07/03/1990,04/11/1990 IPV 11/15/1993, 1,01/01/1990,10/25 Influenza, Quadrivalent, Spl it, Intramuscular 01/13/2015 Influenza, Quadrivalent, Spl it, Preservative Free, Intramuscular 02/23/2022 Influenza, Unspecified 07/20/2023(Deferr ed: Patient Refused),11/24/2022(Deferred: Patient Refused) MMR 11/15/1993,12/25/1990 Moderna SARS-CoV-2 Monovalen t Vaccination (12+ YRS) 09/03/2020,08/06/2020 PPD TEST 01/13/2015 Polio, Unspecified 11/15/1993, 1,01/01/1990,10/25 Td, adsorbed 11/10/2003 Varicella 01/18/2015,08/18/1998 Social History Tobacco Use Types Packs/Day Years Used Date Smoking Tobacco: Never Cigarettes Smokeless Tobacco: Never Tobacco Cessation:Counseling Given: Not Answered [facility] InThrMaities Answer Date Recorded In the past 12 months has e [employer], gas, oil, or water Page[employer] threatened to shut off services in your home? No 07/20/2023 Humiliation, Afraid, Rape, and Kick questionnair e Answer Date Recorded Within the last year, have y ou been afraid of your partner or ex-partner? No 07/20/2023 Within the last year, have y ou been humiliated or emotionally abused in other ways by your partner or ex-partner? No Within the last year, have y ou been kicked, hit, slapped, or otherwise physically hurt by your partner or ex-partner? No 07/20/2023 Within the last year, have y ou been raped or forced to have any kind of sexual activity by your partner or ex-partner? No 07/20/2023 Social Connection and Isolat ion Panel [NHANES] Answer Date Recorded In a typical week, how many times do you talk on the phone with family, friends, or neighbors? More than three times a week 07/20/2023 How often do you get togethe r with friends or relatives? More than three times a week 07/20/2023 How often do you attend [facility] or alevism services? More than 4 times per year 07/20/2023 Do you belong to any clubs o r organizations such as hoahaoism groups, unions, fraternal or athletic groups, or school groups? No 07/20/2023 How often do you attend meet ings of the clubs or organizations you belong to? Never 07/20/2023 Are you , , di vorced, , never , or living with a partner? 07/20/2023 AUDIT-C Answer Date Recorded Q1: How often do you have a drink containing alc ohol? 2-4 times a month 07/20/2023 Q2: How many drinks containi ng alcohol do you have on a typical day when you are drinking? 1 or 2 07/20/2023 Q3: How often do you have si x or more drinks on one occasion? Never 07/20/2023 Overall Financial Resource Strain (CARDIA) Answe r Date Recorded How hard is it for you to pa y for the very basics like food, housing, medical care, and heating? Not hard at all 07/20/2023 PHQ-2 Answer Date Recorded PHQ-2 Total Score (If total score is 3 or more points, staff should administer the PHQ-9) 2 07/20/2023 [facility] - Occupational Stress Questionnaire Answer Date Recorded Do you feel stress - tense, restless, nervous, or anxious, or unable to sleep at night because your mind is troubled all the time - these days? Rather much 07/20/2023 Exercise Vital Sign Answer Date Recorde d On average, how many days pe r week do you engage in moderate to strenuous exercise (like a brisk walk)? 0 days 07/20/2023 On average, how many minutes do you engage in exercise at this level? 0 min 07/20/2023 Hunger Vital Sign Answer Date Recorded Within the past 12 months, y ou worried that your food would run out before you got the money to buy more. Never true 07/20/19 24 Within the past 12 months, t he food you bought just didn't last and you didn't have money to get more. Never true 07/20/2023 PRAPARE - Transportation Answer Date Re corded In the past 12 months, has l ack of transportation kept you from medical appointments or from getting medications? No 06/25 In the past 12 months, has l ack of transportation kept you from meetings, work, or from getting things needed for daily living? No 07/20/2023 Housing Stability Vital Sign Answer Ethan e Recorded In the last 12 months, was t here a time when you were not able to pay the mortgage or rent on time? No 07/20/2023 In the last 12 months, how many places have you lived? 1 07/20/2023 In the last 12 months, was t here a time when you did not have a steady place to sleep or slept in a alf (including now)? 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 Gender Identity Not on file Sexual Orientation Not on file Last Filed Vital Signs Vital Sign Reading Time Taken Comments Blood Pressure 136/94 07/20/2023 1:04 PM CDT Pulse 95 07/20/2023 1:04 PM CDT Temperature 36.8 C (98.2 F) 07/20/2023 1:04 PM CDT Respiratory Rate 18 07/20/2023 1:04 PM CDT Oxygen Saturation 99% 07/20/2023 1:04 PM CDT Inhaled Oxygen Concentration - - Weight 143.6 kg (316 lb 9.6 oz) 07/20/2023 1:04 PM CDT Height 160 cm (5' 2.99 ) 07/20/2023 1:04 PM CDT Body Mass Index 56.1 07/20/2023 1:04 PM CDT Plan of Treatment Not on file Procedures Procedure Name Priority Date/Time Associated Diagnosis Comments HEPATITIS C ANTIBODY Routine 07/20/2023 6:25 PM CDT Need for hepatitis C screening test from Last 3 Months or Most Recently Relevant to Health Maintenance Results * Hepatitis C antibody Blood (07/20/2023 6:25 PM CDT) Hep C Ab Nonreactive Nonreactive Comment: Interpretive Data Nonreactive: Antibodies to HCV not detected. Does NOT exclude the possibility of recent exposure to HCV. Equivocal: Equivocal for HCV antibodies. Supplemental molecular testing will be automatically performed to determine infection status in accordance with current CDC screening recommendations. Reactive: Positive for HCV antibodies. This may represent current or past HCV infection. Supplemental molecular testing will be automatically performed to determine current infection status in accordance with current CDC screening recommendations. Interpretive data was last revised on 2019. Testing performed by: [facility], [address] [place] [address], [place]., [address] Blood 07/20/2023 6:25 PM CDT 07/20/2023 6:25 PM CDT Johanna Andrews NP LAB MICROBIOLOGY - GENERAL ORDER NAILA Final Result [facility] ([place]) 1 [facility] Department [place] [address] from Last 3 Months or Most Recently Relevant to Health Maintenance Insurance [employer] OOS Care Teams Seed Core Operator Relationship Specialty Start Date End Date Johanna Andrews NP PCP - General Family Medicine 07/20/23
--- OUTSIDE RECORDS SUMMARY | 2024-08-10 09:51 | XMS_ITS | Clinical Summary ---
Author Organization [address] lt Address [address] [place] [address] Care Team Providers Care Underground Roof Bolter Name Role Phone Johanna Andrews NP Primary Care Provider [phone] Allergies Active Allergy Reactions Criticality Noted Date [...] ons:Morbid obesity with BMI of 50.0-59.9, adult ([facility]) Inject 0.5 mL (2.5 mg total) under [...] Morbid obesity with BMI of 50.0-59.9, adult 11/2021 Assessment & Plan (07/20/2023 2:51 PM [...] exercise with regards to her morbid obesity. Encounters Date Type Department Care Team Description 06/06/2024 11:45 AM CDT Telemedicine [facility] Virtual Care [address] [place] [phone] Madonna Najera NP Acute vaginitis (Primary Dx) 06/06/2024 Nurse Triage [facility] of [address] [address] Johanna Andrews NP from Last 3 Months Immunizations Immunization Administration Dates Next Due DTaP [...] 11/15/1993, 1,01/01/1990,10/25 Td, adsorbed 11/10/2003 Varicella 01/18/2015,08/18/1998 Surgical History Surgery Date Site/Laterality Comments SECTION FRACTURE SURGERY 08/24/2008 HYSTERECTOMY 08/2022 Medical History Medical History Date Comments GERD (gastroesophageal reflux disease) Depression Anemia 2013 Anxiety 2017 Migraines 1994 Menstrual problem 2006 Family History Medical History Relation Name Comments Obesity Brother Lance Anemia Father Santiago Diabetes Father Santiago Hypertension Father Santiago Obesity Father Santiago Early Maternal Grandfather Harpal Lymphoma Maternal Grandfather Harpal Heart attack Maternal Grandmother Mony Hypertension Maternal Grandmother Mnoy Obesity Maternal Grandmother Mony Depression Mother Jolene Hypertension Mother Jolene Miscarriages / Stillbirths Mother Jolene Obesity Mother Jolene Cancer Paternal Grandfather Ayush Lung cancer Paternal Grandfather Ayush Hypertension Paternal Grandmother Tiffany Anemia Sister 1 Louise Asthma Sister 1 Louise Depression Sister 1 Louise Miscarriages / Stillbirths Sister 1 Louise Mental illness Sister 2 Trudi Obesity Sister 2 Trudi Relation Name Status Comments Brother Lance Father Santiago Maternal Grandfather Harpal Maternal Grandmother Mony Mother Jolene Paternal Grandfather Ayush Paternal Grandmother Tiffany Sister 1 Louise Sister 2 Trudi Social History Tobacco Use Types Packs/Day Years Used Date Smoking Tobacco: Never Cigarettes Smokeless Tobacco: Never Tobacco Cessation:Counseling Given: Not Answered [facility] Utilities Answer Date Recorded In the past 12 months has e [employer], gas, oil, or water [employer] threatened to shut off services in your [...] week 07/20/2023 How often do you attend chur or rastafari services? More than 4 times per year 07/20/2023 Do you belong to any clubs o r organizations such as advent groups, unions, fraternal or athletic groups, or [...] staff should administer the PHQ-9) 2 07/20/2023 [facility] Health - Occupational Stress [...] place to sleep or slept in a halfway (including now)? 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 Gender Identity Not on file Sexual Orientation Not on file Obstetrics History Last Filed Vital Signs Vital Sign Reading [...] 07/20/2023 1:04 PM CDT Plan of Treatment Health Maintenance Due Date Last Done Comments DTaP/Tdap/Td Vaccine (6 - Tdap) 11/11/2003 11/10/2003, 11/15/1993, 01/02/1991, Additional history exists Regular Well Visit/Exam 18-64 09/14/2007 HPV Vaccines (2 - 3-dose series) 02/15/2015 01/18/2015 Covid-19 Vaccine ( season) 2023 09/03/2020, 08/06/2020 Depression Screening 07/19/2024 07/20/2023, 07/20/19 24 Influenza Vaccine (Season Ended) 2024 02/23/2022, 01/13/2015 Hepatitis B Screening Completed 01/13/2015 , 10/31/2001, 10/31/2001, Additional history exists Varicella Vaccines Completed 01/18/2015, 08/18/1998 Hepatitis C Screening Completed 07/20/2023 Pneumococcal vaccine <65 Aged Out No longer eligible based on patient's age to complete this topic Procedures Procedure Name Priority Date/Time Associated Diagnosis [...] last revised on 2019. Testing performed by: [facility], [address] [place] [address]., [id number] Blood 07/20/2023 6:25 PM CDT 07/20/2023 6:25 PM CDT Johanna Andrews NP LAB MICROBIOLOGY - GENERAL ORDER NAILA Final Result [facility] ([place]) 1 [facility] Department [place] [address] from Last 3 Months or Most Recently Relevant to Health Maintenance Insurance [employer] OOS Care Teams Underground Roof Bolter Relationship Specialty Start Date End Date Johanna Andrews NP PCP - General Family Medicine 07/20/23
--- OUTSIDE RECORDS SUMMARY | 2024-08-10 09:51 | XMS_ITS | Clinical Summary ---
Author Organization [facility] Address [address] [facility] [address] Care Team Providers Care Blankmaker Name Role Phone Provider, Abstract Primary Care Provider Unavail able Allergies Active Allergy Reactions Criticality Noted Date Comments Penicillins Hives High 07/08/2009 As a child Medications buPROPion HCL (WELLBUTRIN XL) 300 mg Extended Release 24 hour tablet Take 300 mg by mouth daily. 2 Active omeprazole (PriLOSEC) 40 mg Capsule, Delayed Release(E.C.) Take 40 mg by mouth 1 time daily as needed for Other (See Comment) (gerd). Only if pantoprazole not working 0 Active pantoprazole (PROTONIX) 40 mg Tablet, Delayed Release (E.C.) Take 1 Tablet by mouth daily in the morning. 4 Active ferrous sulfate (SLOW RELEASE IRON) 142 mg (45 mg iron) Tablet Sustained Release Take 142 mg by mouth daily. With vitamin c Active oxyCODONE (ROXICODONE) 5 mg/5 mL solutionIndicat ions:Morbid obesity with BMI of 50.0-59.9, adult (CMS/HCC) Take 5 mL (5 mg) by mouth every 4 hours as needed for Break-Through Pain. Max Daily Amount: 30 mg 210 mL 09/11/2023 1:45 PM CDT 4 Active famotidine (PEPCID) 20 mg tablet Take 1 Tablet (20 mg) by mouth 2 times daily. 60 Tablet 2 09/11/2023 1:45 PM CDT 4 Active ondansetron (Zofran) 4 mg Tablet Take 1 Tablet (4 mg) by mouth every 8 hours as needed for Nausea or Vomiting 50 Tablet 09/11/2023 1:45 PM CDT 4 Active Active Problems Problem Noted Date Diagnosed Date Iron deficiency anemia 10/14/2021 Excessive or frequent menstruation 05/26/2011 Encounters Date Type Department Care Team Description 07/22/2024 External Device Data ST[facility] ABSTRACTION Provider, Abstract 07/22/2024 External Device Data ST[facility] ABSTRACTION Provider, Abstract 07/08/2024 External Device Data [facility] ABSTRACTION Provider, Abstract 07/08/2024 External Device Data [facility] ABSTRACTION Provider, Abstract 06/11/2024 External Device Data [facility] ABSTRACTION Provider, Abstract 06/03/2024 External Device Data ST[facility] ABSTRACTION Provider, Abstract 06/03/2024 External Device Data [facility] ABSTRACTION Provider, Abstract 06/02/2024 External Device Data [facility] ABSTRACTION Provider, Abstract 05/27/2024 External Device Data [facility] ABSTRACTION Provider, Abstract 05/27/2024 External Device Data [facility] ABSTRACTION Provider, Abstract 05/14/2024 External Device Data ST[facility] ABSTRACTION Provider, Abstract 05/13/2024 External Device Data [facility] ABSTRACTION Provider, Abstract from Last 3 Months Immunizations Immunization Administration Dates Next Due (M-M-R II/PRIORIX)(12 MO UP) MEASLES, MUMPS AND RUBELLA VIRUS VACCINE, 0.5 ML IM/SUBCUT 11/15/1993,12/25/1990 (TDVAX)(7 YRS UP) TETANUS AN D DIPHTHERIA TOXOIDS, ADSORBED (2 LF OF TETANUS TOXOID AND 2 LF OF DIPHTHERIA TOXOID), 0.5ML (PF), IM 11/10/2003 (VARIVAX)(12 MOS UP)VARICELL A VIRUS VACCINE (PF) 0.5 ML, SUB CUT 08/18/1998 Dt Dtp Dtap Vaccine 01/02/1991, 1,01/01/1990,1989 HIB, Unspecified Formulation 12/25/1990,07/03/18 91,04/11/1990 Hepatitis B Vaccine 10/31/2001,12/12/1999,1999 IPV/OPV 11/15/1993, 1,01/01/1990,1989 Family History Medical History Relation Name Comments Healthy Father Healthy Mother Heart Disease Mother Relation Name Status Comments Father Alive Mother Alive Social History Tobacco Use Types Packs/Day Years Used Date Smoking Tobacco: Never Smokeless Tobacco: Never Alcohol Use Standard Drinks/Week Comments Not Currently 0 (1 standard drink = 0.6 oz pur e alcohol) Feeling Safe Answer Date Recorded Are you in a relationship wi th someone who hurts you emotionally and/or physically? 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 Gender Identity Not on file Sexual Orientation Not on file Last Filed Vital Signs Vital Sign Reading Time Taken Comments Blood Pressure 175/88 09/11/2023 12:27 PM CDT pt just returned from walk Pulse 60 09/11/2023 12:01 PM CDT Temperature 36.8 C (98.2 F) 09/11/2023 12:01 PM CDT Respiratory Rate 18 09/11/2023 12:0 1 PM CDT Oxygen Saturation 98% 09/11/2023 12: 01 PM CDT Inhaled Oxygen Concentration - - Weight 135.2 kg (298 lb) 09/10/2023 3:4 6 PM CDT Height 158.8 cm (5' 2.5 ) 09/10/2023 3: 46 PM CDT Body Mass Index 53.64 09/10/2023 3:46 PM CDT Plan of Treatment Health Maintenance Due Date Last Done Comments DTAP/TDAP/TD VACCINES (5 - Tdap) 11/11/2003 11/10/2003, 11/15/1993, 01/02/1991, Additional history exists HPV/Cotest (21-29) 2010 HPV VACCINES (2 - 3-dose series) 02/15/2015 01/19/20 15 CERVICAL CANCER SCREENING 09/14/2019 HPV/Cotest (30-65) 09/14/2019 PAP SMEAR 09/14/2019 07/08/2009 INFLUENZA VACCINE (#1) 2023 02/23/2022, 2014 HEPATITIS B VACCINES Completed 01/13/2015, 10/31/2001, 10/31/2001, Additional history exists Medical Devices Implanted Type Area Clinical Operations Manager Device Identifier Shelf Expiration Date Model / Serial / Lot Seamguard Endogia 60 Prpl [id number] - [id number] Implanted:Qty : 1 on 09/10/2023 by Susie Kemp MD at [facility] N/A: Abdomen [employer] 02/04/2026 [id number] / / [id number] Seamguard Endogia 60 Blk [id number] - [id number] Implanted:Qty : 1 on 09/10/2023 by Susie Kemp MD at [facility] N/A: Abdomen [employer] 01/13/2026 [id number] / / [id number] Seamguard Endogia 60 Blk [id number] - [id number] Implanted:Qty : 1 on 09/10/2023 by Susie Kemp MD at [facility] N/A: Abdomen [employer] 01/13/2026 [id number] / / [id number] Seamguard Endogia 60 Prpl [id number] - [id number] Implanted:Qty : 1 on 09/10/2023 by Susie Kemp MD at [facility] N/A: Abdomen [employer] 02/04/2026 [id number] / / [id number] Seamguard Endogia 60 Prpl [id number] - [id number] Implanted:Qty : 1 on 09/10/2023 by Susie Kemp MD at [facility] N/A: Abdomen [employer] 12/23/2025 [id number] / / [id number] Insurance [employer] ACCESS CHOICE [employer] ACCESS/TRUE BLUE PPO RX EXPRESS SCRIPTS Express RX [employer] PLANS (INTERNAL) [facility] Internal Plans Advance Directives For more information, please contact: [phone] * Full Code (Latest Code Status on File) Date Activated Date Inactivated Comments 09/10/2023 3:08 PM 09/11/2023 4:31 PM * Full Code Date Activated Date Inactivated Comments 09/10/2023 6:50 AM 09/10/2023 3:08 PM Care Teams Blankmaker Relationship Specialty Start Date End Date Provider, Abstract NO ADDRESS ON FILE PCP - General 05/28/19
--- OUTSIDE RECORDS SUMMARY | 2024-08-10 09:52 | XMS_ITS | Data Portability ---
Author Organization [place] - [facility], Main Office Address [address] [place] [address] Assessment Encounter Date Assessment Date Assessment LastModified by Organization Details LastModified Time 06/15/2022 06/15/2022 WWE-PATIENT RELATIONS COORDINATOR- Dr. Austen GOLDSTEIN- 02/23/22 Call office if worse, ER if life threatening illness RTC 3 months She voices understanding of plan and agrees [email or web address] Not available 06/15/2022 18:09:56 12/26/2022 12/26/2022 FEROZ-PATIENT RELATIONS COORDINATORBry GOLDSTEIN- 02/23/22 Call office if worse, ER if life threatening illness RTC 1 month She voices understanding of plan and agrees Not available 12/26/2022 15:03:04 Plan of Treatment Reminders Order Date Submit Date Provider Last Modified By Organization Details Last Modified Time Details Appointments None recorded. Lab vitamin D, 25-hydroxy, total, serum 2022 023 [email or web address] [facility] (Lab), [address] [place], [address], 16:32:05 glycohemogl obin, total, blood 2022 023 [facility] (Lab), [address] [place], [address], 18:07:30 lipid panel, serum 2022 023 [facility] (Lab), [address] [place], [address], 14:27:45 TSH, serum or plasma 2022 [facility] (Lab), [address] [place], [address], 14:56:56 vitamin B12 + folate, serum or blood 2022 [email or web address] [facility] (Lab), [address] [place], [address], 16:32:04 ferritin, serum or plasma 2022 [facility] (Lab), [address] [place], [address], 15:00:56 iron + total iron-bindin g capacity (TIBC), serum 2022 [facility] (Lab), [address] [place], [address], 14:27:47 CBC w/ auto diff 2022 [facility] (Lab), [address] [place], [address], 14:26:45 CMP, serum or plasma 2022 [facility] (Lab), [address] [place], [address], 14:27:40 Referral None recorded. Procedures None recorded. Surgeries None recorded. Imaging None recorded. Medication Orders pantoprazol e 40 mg tablet,juan yed release 2022 [facility] #[id number], [address], [place], [place], [id number], 12:01:26 famotidine 40 mg tablet 2022 023 [facility] #[id number], [address], [place], [place], [id number], 3 12:01:18 bupropion HCl XL 150 mg 24 hr tablet, extended release 2022 023 [facility] #[id number], [address], [place], [place], [id number], 3 12:00:28 Wegovy 0.5 mg/0.5 mL subcutaneou s pen injector 2022 023 [email or web address] [facility] #[id number], [address], [place], [place], [id number], 3 09:43:27 Patient TargetsNo targets recorded. Patient InstructionsNo instructions recorded. Reason for Referral None Reported. Results Created Date Observation Date Name Description Value Unit Range Abnormal Flag Note LastModifiedBy Organization Detail LastModifiedTime 05/18/1905/19/2022 INSUL IN insulin 18.1 uIU/m L 2.6-24 .9 [facility]fo r[facility] at: [facility] [address] [id number] Lab Direc tor: Jones reese PhD, Phone : [phone] Not Available [facility] (Lab) [address] [place], [address], 05/19/2022 10:12:54 05/18/1905/18/2022 FOLAT E, SERUM /PLAS MA folate 10.2 NG/mL 2.76-2 0.0 Not Available [facility] (Lab) [address] [place], [address], 05/18/2022 17:54:57 05/18/19 23 05/18/2022 VITAM IN B12 (DAMI JAMES ) vb12 342 pg/mL 239-93 1 Not Available [facility] (Lab) [address] [place], [address], 05/18/2022 17:54:55 05/18/1905/18/2022 VITAM IN D 25-HY DROXY vd25oh 21.6 NG/mL 30-100 low Vitam in D Statu s: Defic ient: <20 ng/mL Insuf ficie nt: 20-29 ng/mL Suffi cient : 30-10 0 ng/mL Not Available [facility] (Lab) [address] [place], [address], 05/18/2022 17:05:03 05/18/1905/18/2022 HEMOG LOBIN A1C HA1C 5.3 % 4.0-6. 0 Diabe davie Scree jerrod Crite bradley: <5.7% Consi stent with absen ce of diabe davie 5.7-6 .4% Consi stent with incre ased risk for diabe davie (pred iabet es) >OR=6 .5% Consi stent with diabe davie REFER ENCE: Diabe davie Care 2016, 39(Walsh ppl.1 ):s13 -s22 Not Available [facility] (Lab) [address] [place], [address], 05/18/2022 16:47:55 05/18/19 23 05/18/2022 MIMI TIN ferritin 12 NG/mL 6.24-1 37 Not Available [facility] (Lab) [address] [place], [address], 05/18/2022 16:47:45 05/18/19 23 05/18/2022 TSH thyroid-stim ulating hormone 3.500 uIU/m L 0.465- 4.680 Not Available [facility] (Lab) [address] [place], [address], 05/18/2022 16:46:38 05/18/19 23 05/18/2022 T4 FREE free T4 1.01 NG/dL 0.78-2 .19 Not Available [facility] (Lab) [address] [place], [address], 05/18/2022 16:46:02 05/18/19 23 05/18/2022 CBC/C OMPLE TE BLD COUNT W/DIF F hemoglobin 9.9 g/dL 12.0-1 5.6 low Not Available [facility] (Lab) [address] [place], [address], 05/18/2022 16:24:38 05/18/19 23 05/18/2022 CBC/C OMPLE TE BLD COUNT W/DIF F white blood cells 8.7 x10'3 /uL 4.2-10 .8 Not Available [facility] (Lab) [address] [place], [address], 05/18/2022 16:24:38 05/18/19 23 05/18/2022 CBC/C OMPLE TE BLD COUNT W/DIF F red blood cells 4.50 x10'6 /uL 3.80-5 .20 Not Available [facility] (Lab) [address] [place], [address], 05/18/2022 16:24:38 05/18/19 23 05/18/2022 CBC/C OMPLE TE BLD COUNT W/DIF F hematocrit 34.7 % 35.7-4 5.7 low Not Available [facility] (Lab) [address] [place], [address], 05/18/2022 16:24:38 05/18/19 23 05/18/2022 CBC/C OMPLE TE BLD COUNT W/DIF F mean red cell volume 77.1 fL 82.0-9 9.0 low Not Available [facility] (Lab) [address] [place], [address], 05/18/2022 16:24:38 05/18/19 23 05/18/2022 CBC/C OMPLE TE BLD COUNT W/DIF F mean red cell hemoglobin 22.0 pg 27.0-3 3.0 low Not Available [facility] (Lab) [address] [place], [address], 05/18/2022 16:24:38 05/18/19 23 05/18/2022 CBC/C OMPLE TE BLD COUNT W/DIF F mean RBC HGB concentratio n 28.5 g/dL 31.0-3 6.0 low Not Available [facility] (Lab) [address] [place], [address], 05/18/2022 16:24:38 05/18/19 23 05/18/2022 CBC/C OMPLE TE BLD COUNT W/DIF F red cell distribution width 18.5 % 11.8-1 5.5 high Not Available [facility] (Lab) [address] [place], [address], 05/18/2022 16:24:38 05/18/19 23 05/18/2022 CBC/C OMPLE TE BLD COUNT W/DIF F platelets 427 x10'3 /uL 150-40 0 high Not Available [facility] (Lab) [address] [place], [address], 05/18/2022 16:24:38 05/18/19 23 05/18/2022 CBC/C OMPLE TE BLD COUNT W/DIF F mean platelet volume 8.8 fL 9.0-12 .4 low Not Available [facility] (Lab) [address] [place], [address], 05/18/2022 16:24:38 05/18/19 23 05/18/2022 CBC/C OMPLE TE BLD COUNT W/DIF F neutrophils 65.4 % 39.0-7 2.0 Not Available [facility] (Lab) [address] [place], [address], 05/18/2022 16:24:38 05/18/19 23 05/18/2022 CBC/C OMPLE TE BLD COUNT W/DIF F lymphocytes 26.6 % 16.0-4 7.0 Not Available [facility] (Lab) [address] [place], [address], 05/18/2022 16:24:38 05/18/19 23 05/18/2022 CBC/C OMPLE TE BLD COUNT W/DIF F monocytes 3.9 % 5.0-12 .0 low Not Available [facility] (Lab) [address] [place], [address], 05/18/2022 16:24:38 05/18/19 23 05/18/2022 CBC/C OMPLE TE BLD COUNT W/DIF F eosinophils 2.9 % 1.0-7. 0 Not Available [facility] (Lab) [address] [place], [address], 05/18/2022 16:24:38 05/18/19 23 05/18/2022 CBC/C OMPLE TE BLD COUNT W/DIF F basophils 0.6 % 0.0-2. 0 Not Available [facility] (Lab) [address] [place], [address], 05/18/2022 16:24:38 05/18/19 23 05/18/2022 CBC/C OMPLE TE BLD COUNT W/DIF F immature granulocytes 0.6 % 0.00-0 .50 high Not Available [facility] (Lab) [address] [place], [address], 05/18/2022 16:24:38 05/18/19 23 05/18/2022 CBC/C OMPLE TE BLD COUNT W/DIF F neutrophils, absolute count 5.72 x10'3 /uL 1.5-8. 0 Not Available [facility] (Lab) [address] [place], [address], 05/18/2022 16:24:38 05/18/19 23 05/18/2022 CBC/C OMPLE TE BLD COUNT W/DIF F lymphocytes, absolute count 2.32 x10'3 /uL 1.07-3 .43 Not Available [facility] (Lab) [address] [place], [address], 05/18/2022 16:24:38 05/18/19 23 05/18/2022 CBC/C OMPLE TE BLD COUNT W/DIF F monocytes, absolute count 0.34 x10'3 /uL 0.29-0 .99 Not Available [facility] (Lab) [address] [place], [address], 05/18/2022 16:24:38 05/18/19 23 05/18/2022 CBC/C OMPLE TE BLD COUNT W/DIF F eosinophils, absolute count 0.25 x10'3 /uL 0.02-0 .53 Not Available [facility] (Lab) [address] [place], [address], 05/18/2022 16:24:38 05/18/19 23 05/18/2022 CBC/C OMPLE TE BLD COUNT W/DIF F basophils, absolute count 0.05 x10'3 /uL 0.01-0 .08 Not Available [facility] (Lab) [address] [place], [address], 05/18/2022 16:24:38 05/18/19 23 05/18/2022 CBC/C OMPLE TE BLD COUNT W/DIF F immature granulocytes ,absolute 0.05 x10'3 /uL 0.00-0 .05 Not Available [facility] (Lab) [address] [place], [address], 05/18/2022 16:24:38 05/18/19 23 05/18/2022 CBC/C OMPLE TE BLD COUNT W/DIF F nucleated red blood cells 0.0 % -0 Not Available [facility] (Lab) [address] [place], [address], 05/18/2022 16:24:38 05/18/19 23 05/18/2022 CBC/C OMPLE TE BLD COUNT W/DIF F NRBC# 0.00 x10'3 /uL Not Available [facility] (Lab) [address] [place], [address], 05/18/2022 16:24:38 05/18/19 23 05/18/2022 CBC/C OMPLE TE BLD COUNT W/DIF F microcytosis occasi onal Not Available [facility] (Lab) [address] [place], [address], 05/18/2022 16:24:38 05/18/19 23 05/18/2022 CBC/C OMPLE TE BLD COUNT W/DIF F anisocytosis occasi onal Not Available [facility] (Lab) [address] [place], [address], 05/18/2022 16:24:38 05/18/19 23 05/18/2022 CBC/C OMPLE TE BLD COUNT W/DIF F poikilocytos is occasi onal Not Available [facility] (Lab) [address] [place], [address], 05/18/2022 16:24:38 05/18/19 23 05/18/2022 CBC/C OMPLE TE BLD COUNT W/DIF F hypochromia 1+ Not Available [facility] (Lab) [address] [place], [address], 05/18/2022 16:24:38 05/18/19 23 05/18/2022 IRON/ TIBC PANEL total iron binding capacity 507 mcg/d L 265-47 5 high Not Available [facility] (Lab) [address] [place], [address], 05/18/2022 16:23:45 05/18/19 23 05/18/2022 IRON/ TIBC PANEL % transferrin saturation 6 % 20-55 low Not Available [facility] (Lab) [address] [place], [address], 05/18/2022 16:23:45 05/18/19 23 05/18/2022 IRON/ TIBC PANEL unsaturated iron bind capacity 475 mcg/d L 126-38 2 high Not Available [facility] (Lab) [address] [place], [address], 05/18/2022 16:23:45 05/18/19 23 05/18/2022 IRON/ TIBC PANEL iron 32 mcg/d L 42-175 low Not Available [facility] (Lab) [address] [place], [address], 05/18/2022 16:23:45 05/18/19 23 05/18/2022 LIPID PANEL LDL cholesterol, calculated 88 mg/dL 0-130 NIH BETTINA NSUS REPOR T RECOM MENDA TIONS FOR LDL: ADULT CHILD LOW RISK <130 <110 (OPTI MAL LDL) <100 ----- BORDE RLINE : 130-1 59 ----- HIGH RISK: >160 >130 A TRIGL YCERI DE RESUL T >400 INVAL IDATE S THE CALCU LATIO N FOR LDL FRACT IONAT ION - THE LDL RESUL T WILL NOT BE REPOR FRANCIS. Not Available [facility] (Lab) [address] [place], [address], 05/18/2022 16:22:24 05/18/19 23 05/18/2022 LIPID PANEL cholesterol 165 mg/dL 140-19 9 NIH BETTINA NSUS RECOM MENDA TION FOR HERMILO STERO L: ADULT CHILD LOW RISK: <200 <170 BORDE RLINE : <200- 239 ----- HIGH RISK: >240 >200 Not Available [facility] (Lab) [address] [place], [address], 05/18/2022 16:22:24 05/18/19 23 05/18/2022 LIPID PANEL triglyceride s 136 mg/dL 0-150 NIH BETTINA NSUS REPOR T RECOM MENDA TION FOR TRIGL YCERI MIKAYLA: ADULT CHILD LOW RISK: <150 ----- BODER LINE: 150-1 99 ----- HIGH RISK: >200 ----- Not Available [facility] (Lab) [address] [place], [address], 05/18/2022 16:22:24 05/18/19 23 05/18/2022 LIPID PANEL HDL cholesterol 50 mg/dL 40- Not Available [facility] (Lab) [address] [place], [address], 05/18/2022 16:22:24 05/18/19 23 05/18/2022 COMPR EHENS SUSANNAH METAB OLIC PANEL glucose 76 mg/dL 70-99 Not Available [facility] (Lab) [address] [place], [address], 05/18/2022 16:22:20 05/18/19 23 05/18/2022 COMPR EHENS SUSANNAH METAB OLIC PANEL sodium 137 mmol/ L 137-14 5 Not Available [facility] (Lab) [address] [place], [address], 05/18/2022 16:22:20 05/18/19 23 05/18/2022 COMPR EHENS SUSANNAH METAB OLIC PANEL potassium 4.4 mmol/ L 3.5-5. 1 Not Available [facility] (Lab) [address] [place], [address], 05/18/2022 16:22:20 05/18/19 23 05/18/2022 COMPR EHENS SUSANNAH METAB OLIC PANEL chloride 104 mmol/ L 98-107 Not Available [facility] (Lab) [address] [place], [address], 05/18/2022 16:22:20 05/18/19 23 05/18/2022 COMPR EHENS SUSANNAH METAB OLIC PANEL carbon dioxide 26 mmol/ L 22-30 Not Available [facility] (Lab) [address] [place], [address], 05/18/2022 16:22:20 05/18/19 23 05/18/2022 COMPR EHENS SUSANNAH METAB OLIC PANEL anion gap 11.4 mmol/ L 14-22 low Not Available [facility] (Lab) [address] [place], [address], 05/18/2022 16:22:20 05/18/19 23 05/18/2022 COMPR EHENS SUSANNAH METAB OLIC PANEL BUN 9 mg/dL 8-19 Not Available [facility] (Lab) [address] [place], [address], 05/18/2022 16:22:20 05/18/19 23 05/18/2022 COMPR EHENS SUSANNAH METAB OLIC PANEL creatinine 0.61 mg/dL 0.66-1 .25 low Not Available [facility] (Lab) [address] [place], [address], 05/18/2022 16:22:20 05/18/19 23 05/18/2022 COMPR EHENS SUSANNAH METAB OLIC PANEL aspartate aminotransfe rase 20 U/L 15-37 Not Available [facility] (Lab) [address] [place], [address], 05/18/2022 16:22:20 05/18/19 23 05/18/2022 COMPR EHENS SUSANNAH METAB OLIC PANEL GFR >60 Refer ence Range : [place] ge GFR Healt hy Adult : >60 mL/mi n/1.7 3 m2 Chron ic Kidne y Disea se: 15-60 mL/mi n/1.7 3 m2 Kidne y Failu re: <15/m L/min /1.73 m2 www.n iddk. nih.g ov The MDRD study equat ion has not been valid ated in child qi <18 years of age; pregn ant women ; the elder ly >85 years of age; or in some racia l or ethni c subgr oups, such as Hispa nics. Outsi de the valid ated tracey eters , estim ated GFR is less accur ate, requi ring clini thad judgm ent on a case- by-ca se basis . Clini thad inter preta tion for other races and ages must be made by the clini lisa. The MDRD study equat ion has not been valid ated for the evalu ation of serum creat inine relat ed to nutri edmundo l statu s or medic ation usage . For perso ns <18 years of age, a pedia tric GFR calcu lator is avail able on the [facility] websi te: https ://maria del carmen w.moe yuny.o lilia/pr ofess ional s/kdo qi/gf r_cal culat or Not Available [facility] (Lab) [address] [place], [address], 05/18/2022 16:22:20 05/18/19 23 05/18/2022 COMPR EHENS SUSANNAH METAB OLIC PANEL alkaline phosphatase 90 U/L 38-126 Not Available [facility] (Lab) [address] [place], [address], 05/18/2022 16:22:20 05/18/19 23 05/18/2022 COMPR EHENS SUSANNAH METAB OLIC PANEL alanine aminotransfe rase 16 U/L 0-35 Not Available [facility] (Lab) [address] [place], [address], 05/18/2022 16:22:20 05/18/19 23 05/18/2022 COMPR EHENS SUSANNAH METAB OLIC PANEL bilirubin, total 0.50 mg/dL 0.20-1 .30 Not Available [facility] (Lab) [address] [place], [address], 05/18/2022 16:22:20 05/18/19 23 05/18/2022 COMPR EHENS SUSANNAH METAB OLIC PANEL calcium 8.9 mg/dL 8.4-10 .2 Not Available [facility] (Lab) [address] [place], [address], 05/18/2022 16:22:20 05/18/19 23 05/18/2022 COMPR EHENS SUSANNAH METAB OLIC PANEL total protein 7.1 g/dL 6.3-8. 2 Not Available [facility] (Lab) [address] [place], [address], 05/18/2022 16:22:20 05/18/19 23 05/18/2022 COMPR EHENS SUSANNAH METAB OLIC PANEL albumin 4.0 g/dL 3.4-5. 0 Not Available [facility] (Lab) [address] [place], [address], 05/18/2022 16:22:20 05/18/19 23 05/18/2022 COMPR EHENS SUSANNAH METAB OLIC PANEL globulin 3.1 g/dL 2.6-4. 2 Not Available [facility] (Lab) [address] [place], [address], 05/18/2022 16:22:20 05/18/19 23 05/18/2022 COMPR EHENS SUSANNAH METAB OLIC PANEL A/G ratio 1.3 ratio 1.0-2. 0 Not Available [facility] (Lab) [address] [place], [address], 05/18/2022 16:22:20 12/29/1912/28/2022 CBC/C OMPLE TE BLD COUNT W/DIF F white blood cells 8.9 x10'3 /uL 4.2-10 .8 Not Available [facility] (Lab) [address] [place], [address], 12/28/2022 15:48:32 12/29/1912/28/2022 CBC/C OMPLE TE BLD COUNT W/DIF F red blood cells 4.49 x10'6 /uL 3.80-5 .20 Not Available [facility] (Lab) [address] [place], [address], 12/28/2022 15:48:32 12/29/19 23 12/28/2022 CBC/C OMPLE TE BLD COUNT W/DIF F hemoglobin 10.6 g/dL 12.0-1 5.6 low Not Available [facility] (Lab) [address] [place], [address], 12/28/2022 15:48:32 12/29/1912/28/2022 CBC/C OMPLE TE BLD COUNT W/DIF F hematocrit 35.5 % 35.7-4 5.7 low Not Available [facility] (Lab) [address] [place], [address], 12/28/2022 15:48:32 12/29/1912/28/2022 CBC/C OMPLE TE BLD COUNT W/DIF F mean red cell volume 79.1 fL 82.0-9 9.0 low Not Available [facility] (Lab) [address] [place], [address], 12/28/2022 15:48:32 12/29/1912/28/2022 CBC/C OMPLE TE BLD COUNT W/DIF F mean red cell hemoglobin 23.6 pg 27.0-3 3.0 low Not Available [facility] (Lab) [address] [place], [address], 12/28/2022 15:48:32 12/29/1912/28/2022 CBC/C OMPLE TE BLD COUNT W/DIF F mean RBC HGB concentratio n 29.9 g/dL 31.0-3 6.0 low Not Available [facility] (Lab) [address] [place], [address], 12/28/2022 15:48:32 12/29/1912/28/2022 CBC/C OMPLE TE BLD COUNT W/DIF F red cell distribution width 17.4 % 11.8-1 5.5 high Not Available [facility] (Lab) [address] [place], [address], 12/28/2022 15:48:32 12/29/1912/28/2022 CBC/C OMPLE TE BLD COUNT W/DIF F platelets 429 x10'3 /uL 150-40 0 high Not Available [facility] (Lab) [address] [place], [address], 12/28/2022 15:48:32 12/29/1912/28/2022 CBC/C OMPLE TE BLD COUNT W/DIF F mean platelet volume 9.3 fL 9.0-12 .4 Not Available [facility] (Lab) [address] [place], [address], 12/28/2022 15:48:32 12/29/1912/28/2022 CBC/C OMPLE TE BLD COUNT W/DIF F neutrophils 70.0 % 39.0-7 2.0 Not Available [facility] (Lab) [address] [place], [address], 12/28/2022 15:48:32 12/29/1912/28/2022 CBC/C OMPLE TE BLD COUNT W/DIF F lymphocytes 22.5 % 16.0-4 7.0 Not Available [facility] (Lab) [address] [place], [address], 12/28/2022 15:48:32 12/29/1912/28/2022 CBC/C OMPLE TE BLD COUNT W/DIF F monocytes 3.6 % 5.0-12 .0 low Not Available [facility] (Lab) [address] [place], [address], 12/28/2022 15:48:32 12/29/1912/28/2022 CBC/C OMPLE TE BLD COUNT W/DIF F eosinophils 2.0 % 1.0-7. 0 Not Available [facility] (Lab) [address] [place], [address], 12/28/2022 15:48:32 12/29/1912/28/2022 CBC/C OMPLE TE BLD COUNT W/DIF F basophils 0.6 % 0.0-2. 0 Not Available [facility] (Lab) [address] [place], [address], 12/28/2022 15:48:32 12/29/1912/28/2022 CBC/C OMPLE TE BLD COUNT W/DIF F immature granulocytes 1.3 % 0.00-0 .50 high Not Available [facility] (Lab) [address] [place], [address], 12/28/2022 15:48:32 12/29/1912/28/2022 CBC/C OMPLE TE BLD COUNT W/DIF F neutrophils, absolute count 6.25 x10'3 /uL 1.5-8. 0 Not Available [facility] (Lab) [address] [place], [address], 12/28/2022 15:48:32 12/29/1912/28/2022 CBC/C OMPLE TE BLD COUNT W/DIF F lymphocytes, absolute count 2.01 x10'3 /uL 1.07-3 .43 Not Available [facility] (Lab) [address] [place], [address], 12/28/2022 15:48:32 12/29/1912/28/2022 CBC/C OMPLE TE BLD COUNT W/DIF F monocytes, absolute count 0.32 x10'3 /uL 0.29-0 .99 Not Available [facility] (Lab) [address] [place], [address], 12/28/2022 15:48:32 12/29/1912/28/2022 CBC/C OMPLE TE BLD COUNT W/DIF F eosinophils, absolute count 0.18 x10'3 /uL 0.02-0 .53 Not Available [facility] (Lab) [address] [place], [address], 12/28/2022 15:48:32 12/29/1912/28/2022 CBC/C OMPLE TE BLD COUNT W/DIF F basophils, absolute count 0.05 x10'3 /uL 0.01-0 .08 Not Available [facility] (Lab) [address] [place], [address], 12/28/2022 15:48:32 12/29/1912/28/2022 CBC/C OMPLE TE BLD COUNT W/DIF F immature granulocytes ,absolute 0.12 x10'3 /uL 0.00-0 .05 high Not Available [facility] (Lab) [address] [place], [address], 12/28/2022 15:48:32 12/29/19 23 12/28/2022 CBC/C OMPLE TE BLD COUNT W/DIF F nucleated red blood cells 0.0 % -0 Not Available [facility] (Lab) [address] [place], [address], 12/28/2022 15:48:32 12/29/19 23 12/28/2022 CBC/C OMPLE TE BLD COUNT W/DIF F NRBC# 0.00 x10'3 /uL Not Available [facility] (Lab) [address] [place], [address], 12/28/2022 15:48:32 12/29/19 23 12/28/2022 CBC/C OMPLE TE BLD COUNT W/DIF F hypochromia 1+ Not Available [facility] (Lab) [address] [place], [address], 12/28/2022 15:48:32 12/29/1912/28/2022 COMPR EHENS SUSANNAH METAB OLIC PANEL sodium 137 mmol/ L 137-14 5 Not Available [facility] (Lab) [address] [place], [address], 12/28/2022 14:27:40 12/29/1912/28/2022 COMPR EHENS SUSANNAH METAB OLIC PANEL potassium 4.3 mmol/ L 3.5-5. 1 Not Available [facility] (Lab) [address] [place], [address], 12/28/2022 14:27:40 12/29/1912/28/2022 COMPR EHENS SUSANNAH METAB OLIC PANEL chloride 100 mmol/ L 98-107 Not Available [facility] (Lab) [address] [place], [address], 12/28/2022 14:27:40 12/29/19 23 12/28/2022 COMPR EHENS SUSANNAH METAB OLIC PANEL carbon dioxide 28 mmol/ L 22-30 Not Available [facility] (Lab) [address] [place], [address], 12/28/2022 14:27:40 12/29/1912/28/2022 COMPR EHENS SUSANNAH METAB OLIC PANEL anion gap 13.3 mmol/ L 14-22 low Not Available [facility] (Lab) [address] [place], [address], 12/28/2022 14:27:40 12/29/1912/28/2022 COMPR EHENS SUSANNAH METAB OLIC PANEL glucose 96 mg/dL 70-99 Not Available [facility] (Lab) [address] [place], [address], 12/28/2022 14:27:40 10/05/20 23 12/28/2022 COMPR EHENS SUSANNAH METAB OLIC PANEL BUN 11 mg/dL 8-19 Not Available [facility] (Lab) [address] [place], [address], 12/28/2022 14:27:40 12/29/19 23 12/28/2022 COMPR EHENS SUSANNAH METAB OLIC PANEL creatinine 0.61 mg/dL 0.66-1 .25 low Not Available [facility] (Lab) [address] [place], [address], 12/28/2022 14:27:40 12/29/1912/28/2022 COMPR EHENS SUSANNAH METAB OLIC PANEL GFR >60 Refer ence Range : [place] ge GFR Healt hy Adult : >60 mL/mi n/1.7 3 m2 Chron ic Kidne y Disea se: 15-60 mL/mi n/1.7 3 m2 Kidne y Failu re: <15/m L/min /1.73 m2 www.n iddk. nih.g ov The MDRD study equat ion has not been valid ated in child qi <18 years of age; pregn ant women ; the elder ly >85 years of age; or in some racia l or ethni c subgr oups, such as [facility] nics. Outsi de the valid ated tracey eters , estim ated GFR is less accur ate, requi ring clini thad judgm ent on a case- by-ca se basis . Clini thad inter preta tion for other races and ages must be made by the clini lisa. The MDRD study equat ion has not been valid ated for the evalu ation of serum creat inine relat ed to nutri edmundo l statu s or medic ation usage . For perso ns <18 years of age, a pedia tric GFR calcu lator is avail able on the [facility] websi te: https :[email or web address] del carmen davis.moe [email or web address].o rg/pr ofess ional s/kdo qi/gf r_cal culat or Not Available [facility] (Lab) [address] [place], [address], 12/28/2022 14:27:40 12/29/19 [id number]|2024-08-10 10:35:00|2024-08-10 10:35:00|ED_ITS|SHAHRZAD|Health Information Management|[id number]|"HPI - General Adult General Chief complaint: Upper Respiratory Infection Stated complaint: throat hurts, blisters, strep Source: patient Mode of arrival: ambulatory Limitations: no limitations History of Present Illness HPI narrative: Patient presents for evaluation of sore throat since yesterday. She also reports left-sided otalgia. No fever, chills, nausea, vomiting, diarrhea, cough, shortness of breath. No recent sick contacts to her knowledge. She tried taking Tylenol and ibuprofen for symptoms. She does not smoke. Related Data Home Medications Medication Instructions Recorded Confirmed Last Taken Type bupropion HCl 300 mg 24 hr tablet, 300 mg PO DAILY 09/12/22 12/27/22 09/14/22 History extended release Allergies Allergy/AdvReac Type Severity Reaction Status Date / Time No Known Allergies Allergy Verified 08/10/24 09:59 Review of Systems Review of Systems: CONSTITUTIONAL: Denies fever, chills, or sweats. EYES: Denies visual changes, redness, or discharge. ENT: Reports sore throat and left-sided otalgia. Denies rhinorrhea and sinus congestion CARDIOVASCULAR: Denies chest pain, palpitations, or edema. RESPIRATORY: Denies cough or dyspnea. GASTROINTESTINAL: Denies abdominal pain, nausea, vomiting, or diarrhea. GENITOURINARY: Denies dysuria or hematuria. SKIN: Denies rash or itching. MUSCULOSKELETAL: Denies back pain, joint pain, or myalgia. NEUROLOGIC: Denies headache, numbness, dizziness, or weakness. PSYCHIATRIC: Denies anxiety or depression. [facility] Past Medical History Medical History delivery delivered Encounter for tubal ligation 10/23/16 Anemia Surgical History Surgical History H/O gastric sleeve History of orthopedic surgery L foot Family History Family History Other Breast cancer Maternal Aunt Ovarian cancer Maternal Aunt Other Diabetes mellitus Heart disease Hypertension Social History Social History Smoking status: Never smoker Alcohol intake: current Alcohol use details: 2/MONTH Substance use: never Substance use type: does not use Living arrangements: with family Spiritual care concerns: No Exam Narrative: GENERAL: Well-appearing, well-nourished, and in no acute distress. HEAD: Normocephalic, atraumatic. EYES: PERRLA and EOMI. ENT: Nares clear, no rhinorrhea or epistaxis. Mucous membranes moist. bilateral tonsillar swelling and erythema. No exudate. Uvula is midline. Bilateral TMs pearly chaudhry nonbulging NECK: Supple. No adenopathy or masses. No carotid bruits or JVD CHEST: Clear to auscultation. No respiratory distress. No wheezes rales or rhonchi HEART: Regular rate and rhythm. No murmur heard. Normal peripheral pulses. ABDOMEN: Soft, nontender, nondistended, normal active bowel sounds. EXTREMITIES: Normal range of motion. No edema. SKIN: Warm, dry, no rash. NEURO: No focal deficits. Alert and oriented x3. PSYCH: Normal mood and affect. Course Course Emergency Course: This is a 33 year old female who presented for evaluation of sore throat. Rapid strep negative. Will send throat culture. Through shared decision making opted to proceed with abx therapy. Will dc with augmentin. Follow up with primary provider. Go to the ER for worsening symptoms. Pt in agreement with plan of care. Level of Care: Express Care Visit Vital Signs Vital signs: Vital Signs Temperature 36.7 C 08/10/24 09:55 Pulse Rate 96 08/10/24 09:55 Respiratory Rate 14 08/10/24 09:55 Blood Pressure 148/89 H 08/10/24 09:55 Pulse Oximetry 100 08/10/24 09:55 Oxygen Delivery Room Air 08/10/24 09:55 Temperature 36.7 C 08/10/24 09:55 Pulse Rate 96 08/10/24 09:55 Respiratory Rate 14 08/10/24 09:55 Blood Pressure 148/89 H 08/10/24 09:55 Pulse Oximetry 100 08/10/24 09:55 Oxygen Delivery Room Air 08/10/24 09:55 Medical Decision Making Vital Signs Vital Signs: Vital Signs Temperature 36.7 C 08/10/24 09:55 Pulse Rate 96 08/10/24 09:55 Respiratory Rate 14 08/10/24 09:55 Blood Pressure 148/89 H 08/10/24 09:55 Pulse Oximetry 100 08/10/24 09:55 Oxygen Delivery Room Air 08/10/24 09:55 Temperature 36.7 C 08/10/24 09:55 Pulse Rate 96 08/10/24 09:55 Respiratory Rate 14 08/10/24 09:55 Blood Pressure 148/89 H 08/10/24 09:55 Pulse Oximetry 100 08/10/24 09:55 Oxygen Delivery Room Air 08/10/24 09:55 Lab Data Labs: Lab Results 08/10/24 Range/Units 09:58 POC Grp A Strep Screen Negative (Negative) Discharge Plan Discharge Clinical Impression: Pharyngitis Patient Disposition: Home Condition: Stable Instructions: Antibiotic Form, Pharyngitis (ED) Patient Language: Tamazight Prescriptions: New amoxicillin-pot clavulanate 875-125 mg tablet 1 tablet PO Q12H Qty: 20 0RF No Action bupropion HCl 300 mg tablet extended release 24 hr 300 mg PO DAILY Follow-up/Referrals: Darryl,Johanna Luis [Primary Care Provider] - Time of Disposition: 10:09 "
[2024-08-10 09:55] VITALS: BP 148/89; PULSE 96; RESP 14; TEMP 36.7; O2SAT 100
[2024-08-10 10:09] LABS: EDSTREPNEGPOS1 Negative (Negative)
--- NOTE | 2024-08-10 10:35 | ED.GENADULT ---
HPI - General Adult General Chief complaint: Upper Respiratory Infection Stated complaint: throat hurts, blisters, strep Source: patient Mode of arrival: ambulatory Limitations: no limitations History of Present Illness HPI narrative: Patient presents for evaluation of sore throat since yesterday. She also reports left-sided otalgia. No fever, chills, nausea, vomiting, diarrhea, cough, shortness of breath. No recent sick contacts to her knowledge. She tried taking Tylenol and ibuprofen for symptoms. She does not smoke. Related Data Home Medications Medication Instructions Recorded Confirmed Last Taken Type bupropion HCl 300 mg 24 hr tablet, 300 mg PO DAILY 09/12/22 12/27/22 09/14/22 History extended release Allergies Allergy/AdvReac Type Severity Reaction Status Date / Time No Known Allergies Allergy Verified 08/10/24 09:59 Review of Systems Review of Systems: CONSTITUTIONAL: Denies fever, chills, or sweats. EYES: Denies visual changes, redness, or discharge. ENT: Reports sore throat and left-sided otalgia. Denies rhinorrhea and sinus congestion CARDIOVASCULAR: Denies chest pain, palpitations, or edema. RESPIRATORY: Denies cough or dyspnea. GASTROINTESTINAL: Denies abdominal pain, nausea, vomiting, or diarrhea. GENITOURINARY: Denies dysuria or hematuria. SKIN: Denies rash or itching. MUSCULOSKELETAL: Denies back pain, joint pain, or myalgia. NEUROLOGIC: Denies headache, numbness, dizziness, or weakness. PSYCHIATRIC: Denies anxiety or depression. [facility] Past Medical History Medical History delivery delivered Encounter for tubal ligation 10/23/16 Anemia Surgical History Surgical History H/O gastric sleeve History of orthopedic surgery L foot Family History Family History Other Breast cancer Maternal Aunt Ovarian cancer Maternal Aunt Other Diabetes mellitus Heart disease Hypertension Social History Social History Smoking status: Never smoker Alcohol intake: current Alcohol use details: 2/MONTH Substance use: never Substance use type: does not use Living arrangements: with family Spiritual care concerns: No Exam Narrative: GENERAL: Well-appearing, well-nourished, and in no acute distress. HEAD: Normocephalic, atraumatic. EYES: PERRLA and EOMI. ENT: Nares clear, no rhinorrhea or epistaxis. Mucous membranes moist. bilateral tonsillar swelling and erythema. No exudate. Uvula is midline. Bilateral TMs pearly chaudhry nonbulging NECK: Supple. No adenopathy or masses. No carotid bruits or JVD CHEST: Clear to auscultation. No respiratory distress. No wheezes rales or rhonchi HEART: Regular rate and rhythm. No murmur heard. Normal peripheral pulses. ABDOMEN: Soft, nontender, nondistended, normal active bowel sounds. EXTREMITIES: Normal range of motion. No edema. SKIN: Warm, dry, no rash. NEURO: No focal deficits. Alert and oriented x3. PSYCH: Normal mood and affect. Course Course Emergency Course: This is a 33 year old female who presented for evaluation of sore throat. Rapid strep negative. Will send throat culture. Through shared decision making opted to proceed with abx therapy. Will dc with augmentin. Follow up with primary provider. Go to the ER for worsening symptoms. Pt in agreement with plan of care. Level of Care: Express Care Visit Vital Signs Vital signs: Vital Signs Temperature 36.7 C 08/10/24 09:55 Pulse Rate 96 08/10/24 09:55 Respiratory Rate 14 08/10/24 09:55 Blood Pressure 148/89 H 08/10/24 09:55 Pulse Oximetry 100 08/10/24 09:55 Oxygen Delivery Room Air 08/10/24 09:55 Temperature 36.7 C 08/10/24 09:55 Pulse Rate 96 08/10/24 09:55 Respiratory Rate 14 08/10/24 09:55 Blood Pressure 148/89 H 08/10/24 09:55 Pulse Oximetry 100 08/10/24 09:55 Oxygen Delivery Room Air 08/10/24 09:55 Medical Decision Making Vital Signs Vital Signs: Vital Signs Temperature 36.7 C 08/10/24 09:55 Pulse Rate 96 08/10/24 09:55 Respiratory Rate 14 08/10/24 09:55 Blood Pressure 148/89 H 08/10/24 09:55 Pulse Oximetry 100 08/10/24 09:55 Oxygen Delivery Room Air 08/10/24 09:55 Temperature 36.7 C 08/10/24 09:55 Pulse Rate 96 08/10/24 09:55 Respiratory Rate 14 08/10/24 09:55 Blood Pressure 148/89 H 08/10/24 09:55 Pulse Oximetry 100 08/10/24 09:55 Oxygen Delivery Room Air 08/10/24 09:55 Lab Data Labs: Lab Results 08/10/24 Range/Units 09:58 POC Grp A Strep Screen Negative (Negative) Discharge Plan Discharge Clinical Impression: Pharyngitis Patient Disposition: Home Condition: Stable Instructions: Antibiotic Form, Pharyngitis (ED) Patient Language: Latvian Prescriptions: New amoxicillin-pot clavulanate 875-125 mg tablet 1 tablet PO Q12H Qty: 20 0RF No Action bupropion HCl 300 mg tablet extended release 24 hr 300 mg PO DAILY Follow-up/Referrals: Darryl,Johanna Luis [Primary Care Provider] - Time of Disposition: 10:09
== END 2024-08-10 10:12 | disposition home or self-care (01) ==
PROVIDERS: Emergency Provider Nurse Practitioner; PCP Nurse Practitioner
DX: J02.9 Acute pharyngitis, unspecified (principal); Z98.84 Bariatric surgery status
CPT/HCPCS: 87081; 87880; 99213; G0463

== ENCOUNTER 2024-12-06 18:00 | Emergency (ER) | payer OTHER, SELFPAY ==
--- OUTSIDE RECORDS SUMMARY | 2024-12-06 18:03 | XMS_ITS | Clinical Summary ---
Author Organization [address] lt Address [address] [place] [address] Care Team Providers Care Tax Services Intern Name Role Phone Johanna Andrews NP Primary Care Provider [phone] Allergies Active Allergy Reactions Criticality Noted Date Comments Penicillins Hives High 07/08/[address] (PROTONIX) 40 mg EC tabletIndication s:Gastroesophage al reflux disease, unspecified whether esophagitis present Take 1 tablet (40 mg total) by mouth every morning 90 tablet 1 07/20/2023 Active famotidine (PEPCID) 20 mg tabletIndication s:Gastroesophage al reflux disease, unspecified whether esophagitis present Take 1 tablet (20 mg total) by mouth daily 90 tablet 1 07/20/2023 Active benzonatate (TESSALON) 100 mg capsuleIndicatio ns:Cough Take 1 capsule (100 mg total) by mouth 3 (three) times a day as needed for cough 42 capsule 01/31/2024 Active buPROPion XL (WELLBUTRIN XL) 300 mg 24 hr tabletIndication s:INES (generalized anxiety disorder),Recurr ent major depressive disorder, in partial remission Take 1 tablet (300 mg total) by mouth daily 30 tablet 06/23/2024 06/24/19 26 Active Active Problems Problem Noted Date Diagnosed [...] Encounters Date Type Department Care Team Description 12/05/2024 Telephone [facility] [address] [place] [address] Johanna Andrews NP Symptom Based Call from Last 3 Months Immunizations Immunization Administration [...] Comments GERD (gastroesophageal reflux disease) Depression Anemia 2014 Anxiety 2017 Migraines 1995 Menstrual problem 2007 Family History Medical History Relation Name Comments Obesity Brother Lance Anemia Father Santiago Diabetes Father Santiago Hypertension Father Santiago Obesity Father Santiago Early Maternal Grandfather Harpal Lymphoma Maternal Grandfather Harpal Heart attack Maternal Grandmother Mony Hypertension Maternal Grandmother Mony Obesity Maternal Grandmother Mony Depression Mother Jolene [...] Tobacco: Never Tobacco Cessation:Counseling Given: Not Answered [facility] Utilities Answer Date Recorded In the past 12 months has [facility] [employer], [employer], or water [employer] threatened to shut off services in your [...] or ex-partner? No 07/20/2023 Social Connection and Isolation Panel Answer Date Recorded In a typical week, how many times do you talk on the phone with family, friends, or neighbors? More than three times a week 07/20/2023 How often do you get togethe r with friends or relatives? More than three times a week 07/20/2023 How often do you attend [facility] or pentecostal services? More than 4 times per year 07/20/2023 Do you belong to any clubs o r organizations such as christian groups, unions, fraternal or athletic groups, or [...] staff should administer the PHQ-9) 2 07/20/2023 [facility] of Occupat ional [facility] - Occupational Stress Questionnaire Answer Date Recorded [...] place to sleep or slept in a fpc (including now)? 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 Gender Identity Not on file Sexual Orientation [...] 1:04 PM CDT Height 160 cm (5' 2.99) 07/20/2023 1:04 PM CDT Body Mass Index 56.1 07/20/2023 1:04 PM CDT Plan of Treatment Health Maintenance Due Date Last Done Comments DTaP/Tdap/Td Vaccine (6 - Tdap) 11/11/2003 11/10/2003, 11/15/1993, 01/02/1991, Additional history exists Regular Well Visit/Exam 18-64 09/14/2007 HPV Vaccines (2 - 3-dose series) 02/15/2015 01/18/2015 Depression Screening 07/19/2024 07/20/2023, 07/20/19 24 Covid-19 Vaccine ( - season) 2024 09/03/2020, 08/06/2020 Influenza Vaccine (#1) 2024 02/23/2022, 2014 Hepatitis B Screening Completed 01/13/2015 , 10/31/2001, [...] last revised on 2019. Testing performed by: [facility], [address] [place] [address]., [id number] Blood 07/20/2023 6:25 PM CDT 07/20/2023 6:25 PM CDT us Johanna Andrews NP LAB MICROBIOLOGY - GENERAL ORDER NAILA Final Result [facility] [address] [facility] [place] [address] from Last 3 Months or Most Recently Relevant to Health Maintenance Insurance [employer] Care Teams Tax Services Intern Relationship Specialty Start Date End Date Johanna Andrews NP PCP - General Family Medicine 07/20/23
--- OUTSIDE RECORDS SUMMARY | 2024-12-06 18:03 | XMS_ITS | Clinical Summary ---
[facility] Organization 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 Gender Identity Not on file Sexual Orientation [...] 6 PM CDT Height 158.8 cm (5' 2.5) 09/10/2023 3: 46 PM CDT Body Mass Index 53.64 09/10/2023 3:46 PM CDT Plan of Treatment Health Maintenance Due Date Last Done Comments DTAP/TDAP/TD VACCINES (5 - Tdap) 11/11/2003 11/10/2003, 11/15/1993, 01/02/1991, Additional history exists HPV/Cotest (21-29) 2010 HPV VACCINES (2 - 3-dose series) 02/15/2015 01/19/20 15 CERVICAL CANCER SCREENING 09/14/2019 HPV/Cotest (30-65) 09/14/2019 PAP SMEAR 09/14/2019 07/08/2009 INFLUENZA VACCINE (#1) 2024 02/23/2022, 2014 HEPATITIS B VACCINES Completed 01/13/2015, 10/31/2001, 10/31/2001, Additional history exists Medical Devices Implanted Type Area [place] Device Identifier Shelf Expiration Date Model / Serial / Lot Seamguard Endogia 60 Prpl [id number] - [id number] Implanted:Qty : 1 on 09/10/2023 by Susie Kemp MD at [facility] N/A: Abdomen [employer] 02/04/2026 [id number] / / [id number] Seamguard Endogia 60 Blk [id number] - [id number] Implanted:Qty : 1 on 09/10/2023 by Susie Kemp MD at [facility] N/A: Abdomen [employer] 01/13/2026 [id number] / / [id number] Seamguard Endogia 60 Blk [id number] - [id number] Implanted:Qty : 1 on 09/10/2023 by Susie Kemp MD at [facility] N/A: Abdomen [employer] 01/13/2026 [id number] / / [id number] Seamguard Endogia 60 Prpl [id number] - [id number] Implanted:Qty : 1 on 09/10/2023 by Susie Kemp MD at [facility] N/A: Abdomen [employer] 02/04/2026 [id number] / / [id number] Seamguard Endogia 60 Prpl [id number] - [id number] Implanted:Qty : 1 on 09/10/2023 by Susie Kemp MD at [facility] N/A: Abdomen [employer] 12/23/2025 [id number] / / [id number] Insurance BLUE ACCESS CHOICE BCBS BLUE ACCESS/TRUE BLUE PPO RX EXPRESS SCRIPTS Express RX [employer]NN PLANS (INTERNAL) [facility] Internal Plans Advance Directives For more information, please contact: [phone] * Full Code (Latest Code Status on File) Date Activated Date Inactivated Comments 09/10/2023 3:08 PM 09/11/2023 4:31 PM * Full Code Date Activated Date Inactivated Comments 09/10/2023 6:50 AM 09/10/2023 3:08 PM Care Teams Sock Ironer Relationship Specialty Start Date End Date Provider, Abstract NO ADDRESS ON FILE PCP - General 05/28/19
--- OUTSIDE RECORDS SUMMARY | 2024-12-06 18:04 | XMS_ITS | Clinical Summary ---
Author Organization [facility] Address [address] [place] [address] Care Team Providers Care Maid Cleaning Cooking Name Role Phone Nishant Garvey MD Primary Care Provider [phone] Source Comments [facility],non-owned Affiliates and Associated Physician Practices is amultiple site organization consisting of ambulatory clinics and hospital sitesin [place], [place], [place] and [place]. This disclosure is being madepursuant to the Care Everywhere program and may not contain all information available regarding this patient. 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 Gender Identity Not on file Sexual Orientation Not on file Last Filed Vital Signs Vital Sign Reading Time Taken Comments Blood Pressure - - Pulse - - Temperature - - Respiratory Rate - - Oxygen Saturation - - Inhaled Oxygen Concentration - - Weight - - Height 160 cm (5' 3) 07/24/2014 1:58 PM CDT Body Mass Index - - Plan of Treatment Health Maintenance Due Date Last Done Comments HIV SCREENING 2004 HEPATITIS C SCREENING 09/09/2007 DTAP/TDAP/TD VACCINES (1 - Tdap) 2008 HEPATITIS B VACCINE (1 of 3 - 19+ 3-dose series) 2008 PAP SMEAR 2010 HPV VACCINE (1 - 3-dose SCDM series) 2016 DEPRESSION SCREENING 03/26/2024 COVID-19 VACCINE (1 - 2023-2 5 season) 2024 INFLUENZA VACCINE (#1) 2024 ZOSTER VACCINE (1 of 2) 09/14/2039 [...] patient's age to complete this topic Insurance [address] [address] [place] [address] [facility] Address: [facility] [id number] [place] [address] [employer] [facility] Care Teams Maid Cleaning Cooking Relationship Specialty Start Date End Date Nishant Garvey MD PCP - General Internal Medicine 06/23/16
--- OUTSIDE RECORDS SUMMARY | 2024-12-06 18:05 | XMS_ITS | Encounter Summary ---
Author Organization [facility] Address [address] [place] [address] Care Team Providers Care Cracking Still Operator Name Role Phone Johanna Andrews NP Primary Care Provider [phone] Reason for Visit * Reason Onset Date Comments Symptom Based Call 12/05/2024 Encounter Details Date Type Department Care Team (Late st Contact Info) Description 12/05/2024 Telephone [facility] of [address] [address] Johanna Andrews NP [address] [place] [address] Symptom Based Call Social History Tobacco Use Types Packs/Day Years Used Date Smoking Tobacco: Never Cigarettes Smokeless Tobacco: Never [facility] Utilities Answer Date Recorded In the past 12 months has [facility] [employer], gas, oil, or water [employer] threatened to shut off services in your [...] How often do you attend chur or amish services? More than 4 times per year 07/20/2023 Do you belong to any clubs o r organizations such as shinto groups, unions, fraternal or athletic groups, or [...] staff should administer the PHQ-9) 2 07/20/2023 [facility] - Occupational Stress Questionnaire Answer Date [...] place to sleep or slept in a snf (including now)? 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 Yes-Action Needed * Telephone Encounter - Bonnie Santillan - 12/05/2024 2:35 PM CDT Symptom Based Call Chief Complaint(s): expose to strep via her niece. Sore throat and bodyaches Duration: 2 days What type of symptom(s) is the patient experiencing? Non-Emergent. Is this a new or reoccurring symptom(s)? New What have you tried to help your symptom(s)? Nothing Why was appointment not scheduled? Patient seeking care without an appointment; appointment was offered by . Additional Comments: patient requesting medication for strep to be sent to her pharmacy at #[phone] Does message need to be routed? Yes-Action Needed documented in this encounter Plan of Treatment Not on file documented as of this encounter Visit Diagnoses Not on filedocumented in this encounter Care Teams Cracking Still Operator Relationship Specialty Start Date End Date Johanna Andrews NP PCP - General Family Medicine 07/20/23 documented as of this encounter
[2024-12-06 18:07] VITALS: BP 151/91; PULSE 89; RESP 16; TEMP 36.6; O2SAT 100
[2024-12-06 18:29] LABS: EDSTREPNEGPOS1 Positive (Negative)
--- NOTE | 2024-12-06 18:32 | ED_ITS ---
HPI - URI/Sore Throat General Chief Complaint: Upper Respiratory Infection Stated Complaint: strep throat Time Seen by Provider: 12/06/24 18:27 Source: patient and RN notes reviewed Mode of arrival: ambulatory Limitations: no limitations History of Present Illness HPI Narrative: Patient presents today complaining of sore throat and fatigue since yesterday, worse today. 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 She has been taking ibuprofen with some improvement currently rates her pain 5/10. Related Data Home Medications ?Medication ?Instructions ?Recorded ?Confirmed ?Last Taken ?Type phentermine-topiramate PO 12/06/24 Unknown History Allergies Allergy/AdvReac Type Severity Reaction Status Date / Time No Known Allergies Allergy Verified 12/06/24 18:09 [facility] Past Medical History Medical History delivery delivered Encounter for tubal ligation 10/23/16 Anemia Surgical History Surgical History H/O gastric sleeve History of orthopedic surgery L foot Family History Family History Other Breast cancer Maternal Aunt Ovarian cancer Maternal Aunt Other Diabetes mellitus Heart disease Hypertension Social History Social History Smoking status: Never smoker Alcohol intake: current Alcohol use details: 2/MONTH Substance use: never Substance use type: does not use Living arrangements: with family Spiritual care concerns: No Comments At time of signature, I have reviewed and agree with nursing past medical, surgical, social and family history unless otherwise noted. Please see nursing chart for further information. There is no relevant family history pertinent to the presenting complaint Exam Narrative: GENERAL: Well-appearing, well-nourished, and in no acute distress. HEAD: Normocephalic, atraumatic. EYES: EOMI. No redness or drainage. Conjunctivae normal. ENT: Mucous membranes pink and moist. Nares clear. No rhinorrhea. TMs normal bilaterally. Throat normal. Uvula midline. NECK: Normal AROM. Supple. No lymphadenopathy. CHEST: No respiratory distress. Clear to auscultation. HEART: Regular rate and rhythm. No murmur appreciated. EXTREMITIES: Normal range of motion. No edema. SKIN: Warm, dry, no rash. Capillary refill normal. Normal skin turgor. NEURO: No focal deficits. Alert and oriented x3. Gait steady. PSYCH: Normal affect. No signs of depression or anxiety. Course Course Level of Care: Express Care Visit Vital Signs Vital signs: Vital Signs Temperature 97.9 F 12/06/24 18:07 Pulse Rate 89 12/06/24 18:07 Respiratory Rate 16 12/06/24 18:07 Blood Pressure 151/91 H 12/06/24 18:07 Pulse Oximetry 100 12/06/24 18:07 Oxygen Delivery Room Air 12/06/24 18:07 Temperature 97.9 F 12/06/24 18:07 Pulse Rate 89 12/06/24 18:07 Respiratory Rate 16 12/06/24 18:07 Blood Pressure 151/91 H 12/06/24 18:07 Pulse Oximetry 100 12/06/24 18:07 Oxygen Delivery Room Air 12/06/24 18:07 Reviewed MDM - URI/Sore Throat MDM Narrative Medical decision making narrative: 34-year-old female patient presents today with sore throat and fatigue since yesterday, worse today. 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 Exam is negative. Rapid strep positive. Will treat with a course of amoxici llin. Has requested some fluconazole due to previous yeast infection with antibiotic use. Vital signs stable. Anticipatory guidance given Differential Diagnosis Differential diagnosis: Likely upper respiratory infection, viral infection, pharyngitis and other (Strep throat) Lab Data Attestation: I reviewed the patient's lab results. Labs: Lab Results 12/06/24 Range/Units 18:27 POC Grp A Strep Screen Positive (Negative) Critical Care Time Critical Care Time Critical Care Time: No Discharge Plan Discharge Clinical Impression: Strep throat Patient Disposition: Home Condition: Stable Instructions: Antibiotic Form, Strep Throat (DC) Additional Instructions: You have tested positive for strep throat. Please take the amoxicillin as prescribed until gone. You will be contagious for 24 hours after starting the medication. Take Tylenol or Ibuprofen for pain or fever, if able. Rest and stay hydrated. Follow up with your PCP in 3 days if symptoms are not improving. Go to the ER immediately if you develop worsening symptoms such as shortness of breath, difficulty swallowing. Your blood pressure was elevated above 120/80 today at Urgent Care. This puts you above the threshold for follow up. Please schedule a followup visit with your personal physician as soon as possible, for further evaluation and treatment. Even blood pressure exceeding 120/80 may indicate pre-hypertension. Patient Language: Citizen Of [place] Prescriptions: New amoxicillin 875 mg tablet 875 mg PO Q12H 10 Days Qty: 20 0RF fluconazole 150 mg tablet 150 mg PO Q3D Qty: 2 0RF No Action phentermine-topiramate PO Follow-up/Referrals: Darryl,Johanna Luis [Primary Care Provider, Unknown] Time of Disposition: 18:35
== END 2024-12-06 18:37 | disposition home or self-care (01) ==
PROVIDERS: Emergency Provider Nurse Practitioner; PCP Nurse Practitioner
DX: J02.0 Streptococcal pharyngitis (principal)
CPT/HCPCS: 87880; 99213; G0463

== ENCOUNTER 2025-02-12 18:52 | Emergency (ER) | payer MEDICAID, SELFPAY ==
--- OUTSIDE RECORDS SUMMARY | 2025-02-12 18:57 | XMS_ITS | Clinical Summary ---
Author Organization [facility] Address [address] [place] [address] Care Team Providers Care Auto Garage Attendant Name Role Phone Nishant Garvey MD Primary Care Provider [phone] Source Comments [facility],non-owned Affiliates and Associated Physician Practices is amultiple site organization consisting of ambulatory clinics and hospital sitesin [place] and [place]. This disclosure is being madepursuant to the Care Everywhere program and may not contain all information available regarding this patient. 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 Gender Identity Not on file Sexual [...] of 3 - 19+ 3-dose series) 2008 Cervical Cancer Screening 2010 PAP SMEAR 2010 HPV VACCINE (1 - 3-dose SCDM series) 2016 PAP with HPV 09/14/2019 DEPRESSION SCREENING 03/26/2024 COVID-19 VACCINE ( - 2024-2 6 season) 2024 INFLUENZA VACCINE (#1) 2024 ZOSTER [...] patient's age to complete this topic [place] [address] [place] [address] [employer] [facility] Care Teams Auto Garage Attendant Relationship Specialty Start Date End Date Nishant Garvey MD PCP - General Internal Medicine 06/23/16
--- OUTSIDE RECORDS SUMMARY | 2025-02-12 18:57 | XMS_ITS | Clinical Summary ---
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 Gender Identity Not on file Sexual Orientation [...] history exists Medical Devices Implanted Type Area Hardware Installer Device Identifier Shelf Expiration Date Model / Serial / Lot Seamguard Endogia 60 Prpl [id number] - [id number] Implanted:Qty : 1 on 09/10/2023 by Susie Kemp MD at [facility] N/A: Abdomen [employer] 02/04/2026 [id number] / / [id number] Seamguard Endogia 60 Blk [id number] - [id number] Implanted:Qty : 1 on 09/10/2023 by Susie Kemp MD at [facility] N/A: Abdomen [employer] 01/13/2026 [id number] / / [id number] Seamguard Endogia 60 Blk [id number] - [id number] Implanted:Qty : 1 on 09/10/2023 by Susie Kemp MD at [facility] N/A: Abdomen [employer] 01/13/2026 [id number] / / [id number] Seamguard Endogia 60 Prpl [id number] - [id number] Implanted:Qty : 1 on 09/10/2023 by Susie Kemp MD at [facility] N/A: Abdomen [employer] 02/04/2026 [id number] / / [id number] Seamguard Endogia 60 Prpl [id number] - [id number] Implanted:Qty : 1 on 09/10/2023 by Susie Kemp MD at [facility] N/A: Abdomen [employer] 12/23/2025 [id number] / / [id number] Insurance BLUE ACCESS CHOICE BCBS BLUE ACCESS/TRUE BLUE PPO RX [employer] (INTERNAL) [facility] Internal Plans Advance Directives For more information, please contact: [phone] * Full Code (Latest Code Status on File) Date Activated Date Inactivated Comments 09/10/2023 3:08 PM 09/11/2023 4:31 PM * Full Code Date Activated Date Inactivated Comments 09/10/2023 6:50 AM 09/10/2023 3:08 PM Care Teams Choke Setter Relationship Specialty Start Date End Date Provider, Abstract NO ADDRESS ON FILE PCP - General 05/28/19
--- OUTSIDE RECORDS SUMMARY | 2025-02-12 18:57 | XMS_ITS | Data Portability ---
Author Organization [place] [facility], Main Office Address [address] [place] [address] Assessment Encounter Date Assessment Date Assessment LastModified by Organization Details LastModified Time 06/15/2022 06/15/2022 WWE-TEST EVALUATOR- Dr. Austen GOLDSTEIN- 02/23/22 Call office if worse, ER if life threatening illness RTC 3 months She voices understanding of plan and agrees [email or web address] Not available 06/15/2022 18:09:56 12/26/2022 12/26/2022 FEROZ-TEST EVALUATOR- Dr. Austen GOLDSTEIN- 02/23/22 Call office if worse, ER if life threatening illness RTC 1 month She voices understanding of plan and agrees [email or web address] Not available 12/26/2022 15:03:04 Plan of Treatment Reminders Order Date Submit Date Provider Last Modified By Organization Details Last Modified Time Details Appointments None recorded. Lab vitamin D, 25-hydroxy, total, serum 2022 023 [email or web address] [facility] (Lab), [address] [place], [address], 16:32:05 [email or web address] obin, total, blood 2022 023 [facility] (Lab), [address] [place], [address], 18:07:30 lipid panel, serum 2022 023 [facility] (Lab), [address] [place], [address], 14:27:45 TSH, serum or plasma 2022 [facility] (Lab), [address] [place], [address], 14:56:56 vitamin B12 + folate, serum or blood 2022 [email or web address] [facility] (Lab), [address] [place], [address], 16:32:04 ferritin, serum or plasma 2022 [facility] (Lab), [address] [place], [address], 15:00:56 iron + total iron-bindin g capacity (TIBC), serum 2022 [facility] (Lab), [address] [place], [address], 14:27:47 CBC w/ auto diff 2022 [facility] (Lab), [address] [place], [address], 14:26:45 CMP, serum or plasma 2022 [facility] (Lab), [address] [place], [address], 14:27:40 Referral None recorded. Procedures None recorded. Surgeries None recorded. Imaging None recorded. Medication Orders pantoprazol e 40 mg tablet,juan yed release 2022 [facility] #[id number], [address], [place], [place], [id number], 12:01:26 famotidine 40 mg tablet 2022 023 [facility] #[id number], [address], [place], [place], [id number], 3 12:01:18 bupropion HCl XL 150 mg 24 hr tablet, extended release 2022 023 [facility] #[id number], [address], [place], [place], [id number], 3 12:00:28 Wegovy 0.5 mg/0.5 mL subcutaneou s pen injector 2022 023 [email or web address] [facility] #[id number], [address], [place], [place], [id number], 3 09:43:27 Patient TargetsNo targets recorded. Patient InstructionsNo instructions recorded. Reason for Referral None Reported. Results Created Date Observation Date Name Description Value Unit Range Abnormal Flag Note LastModifiedBy Organization Detail LastModifiedTime 05/18/1905/19/2022 INSUL IN insulin 18.1 uIU/m L 2.6-24 .9 Perfo rmed at: [facility] [address] [place] [id number] Lab Direc tor: Jones reese PhD, Phone : [phone] Not Available [facility] (Lab) [address] [place], [address], 05/19/2022 10:12:54 05/18/19 23 05/18/2022 FOLAT E, SERUM /PLAS MA folate 10.2 NG/mL 2.76-2 0.0 Not Available [facility] (Lab) [address] [place], [address], 05/18/2022 17:54:57 05/18/19 23 05/18/2022 VITAM IN B12 (DAMI JAMES ) vb12 342 pg/mL 239-93 1 Not Available [facility] (Lab) [address] [place], [address], 05/18/2022 17:54:55 05/18/1905/18/2022 VITAM IN D 25-HY DROXY vd25oh 21.6 NG/mL 30-100 low Vitam in D Statu s: Defic ient: <20 ng/mL Insuf ficie nt: 20-29 ng/mL Suffi cient : 30-10 0 ng/mL Not Available [facility] (Lab) [address] [place], [address], 05/18/2022 17:05:03 05/18/1905/18/2022 HEMOG LOBIN A1C HA1C 5.3 % 4.0-6. 0 Diabe davie Scree jerrod Crite bradley: <5.7% Consi stent with absen ce of diabe davie 5.7-6 .4% Consi stent with incre ased risk for diabe davie (pred iabet es) >OR=6 .5% Consi stent with diabe davie REFER ENCE: Diabe davie Care 2016, 39(Walsh ppl.1 ):s13 -s22 Not Available [facility] (Lab) [address] [place], [address], 05/18/2022 16:47:55 05/18/19 23 05/18/2022 MIMI TIN ferritin 12 NG/mL 6.24-1 37 Not Available [facility] (Lab) [address] [place], [address], 05/18/2022 16:47:45 05/18/19 23 05/18/2022 TSH thyroid-stim ulating hormone 3.500 uIU/m L 0.465- 4.680 Not Available [facility] (Lab) [address] [place], [address], 05/18/2022 16:46:38 05/18/19 23 05/18/2022 T4 FREE free T4 1.01 NG/dL 0.78-2 .19 Not Available [facility] (Lab) [address] [facility] [place], [address], 05/18/2022 16:46:02 05/18/19 23 05/18/2022 CBC/C OMPLE TE BLD COUNT W/DIF F hemoglobin 9.9 g/dL 12.0-1 5.6 low Not Available [facility] (Lab) [address] [place], [address], 05/18/2022 16:24:38 05/18/19 23 05/18/2022 CBC/C OMPLE TE BLD COUNT W/DIF F white blood cells 8.7 x10'3 /uL 4.2-10 .8 Not Available [facility] (Lab) [address] [place], [address], 05/18/2022 16:24:38 05/18/19 23 05/18/2022 CBC/C OMPLE TE BLD COUNT W/DIF F red blood cells 4.50 x10'6 /uL 3.80-5 .20 Not Available [facility] (Lab) [address] [place], [address], 05/18/2022 16:24:38 05/18/19 23 05/18/2022 CBC/C OMPLE TE BLD COUNT W/DIF F hematocrit 34.7 % 35.7-4 5.7 low Not Available [facility] (Lab) [address] [place], [address], 05/18/2022 16:24:38 05/18/19 23 05/18/2022 CBC/C OMPLE TE BLD COUNT W/DIF F mean red cell volume 77.1 fL 82.0-9 9.0 low Not Available [facility] (Lab) [address] [place], [address], 05/18/2022 16:24:38 02/23/05/18/2022 CBC/C OMPLE TE BLD COUNT W/DIF F mean red cell hemoglobin 22.0 pg 27.0-3 3.0 low Not Available [facility] (Lab) [address] [place], [address], 05/18/2022 16:24:38 05/18/19 23 05/18/2022 CBC/C OMPLE TE BLD COUNT W/DIF F mean RBC HGB concentratio n 28.5 g/dL 31.0-3 6.0 low Not Available [facility] (Lab) [address] [place], [address], 05/18/2022 16:24:38 05/18/19 23 05/18/2022 CBC/C OMPLE TE BLD COUNT W/DIF F red cell distribution width 18.5 % 11.8-1 5.5 high Not Available [facility] (Lab) [address] [place], [address], 05/18/2022 16:24:38 05/18/19 23 05/18/2022 CBC/C OMPLE TE BLD COUNT W/DIF F platelets 427 x10'3 /uL 150-40 0 high Not Available [facility] (Lab) [address] [place], [address], 05/18/2022 16:24:38 05/18/19 23 05/18/2022 CBC/C OMPLE TE BLD COUNT W/DIF F mean platelet volume 8.8 fL 9.0-12 .4 low Not Available [facility] (Lab) [address] [place], [address], 05/18/2022 16:24:38 05/18/19 23 05/18/2022 CBC/C OMPLE TE BLD COUNT W/DIF F neutrophils 65.4 % 39.0-7 2.0 Not Available [facility] (Lab) [address] [place], [address], 05/18/2022 16:24:38 05/18/19 23 05/18/2022 CBC/C OMPLE TE BLD COUNT W/DIF F lymphocytes 26.6 % 16.0-4 7.0 Not Available [facility] (Lab) [address] [place], [address], 05/18/2022 16:24:38 05/18/19 23 05/18/2022 CBC/C OMPLE TE BLD COUNT W/DIF F monocytes 3.9 % 5.0-12 .0 low Not Available [facility] (Lab) [address] [place], [address], 05/18/2022 16:24:38 05/18/19 23 05/18/2022 CBC/C OMPLE TE BLD COUNT W/DIF F eosinophils 2.9 % 1.0-7. 0 Not Available [facility] (Lab) [address] [place], [address], 05/18/2022 16:24:38 05/18/19 23 05/18/2022 CBC/C OMPLE TE BLD COUNT W/DIF F basophils 0.6 % 0.0-2. 0 Not Available [facility] (Lab) [address] [place], [address], 05/18/2022 16:24:38 05/18/19 23 05/18/2022 CBC/C OMPLE TE BLD COUNT W/DIF F immature granulocytes 0.6 % 0.00-0 .50 high Not Available [facility] (Lab) [address] [place], [address], 05/18/2022 16:24:38 05/18/19 23 05/18/2022 CBC/C OMPLE TE BLD COUNT W/DIF F neutrophils, absolute count 5.72 x10'3 /uL 1.5-8. 0 Not Available [facility] (Lab) [address] [place], [address], 05/18/2022 16:24:38 05/18/19 23 05/18/2022 CBC/C OMPLE TE BLD COUNT W/DIF F lymphocytes, absolute count 2.32 x10'3 /uL 1.07-3 .43 Not Available [facility] (Lab) [address] [place], [address], 05/18/2022 16:24:38 05/18/19 23 05/18/2022 CBC/C OMPLE TE BLD COUNT W/DIF F monocytes, absolute count 0.34 x10'3 /uL 0.29-0 .99 Not Available [facility] (Lab) [address] [place], [address], 05/18/2022 16:24:38 05/18/19 23 05/18/2022 CBC/C OMPLE TE BLD COUNT W/DIF F eosinophils, absolute count 0.25 x10'3 /uL 0.02-0 .53 Not Available [facility] (Lab) [address] [place], [address], 05/18/2022 16:24:38 05/18/19 23 05/18/2022 CBC/C OMPLE TE BLD COUNT W/DIF F basophils, absolute count 0.05 x10'3 /uL 0.01-0 .08 Not Available [facility] (Lab) [address] [place], [address], 05/18/2022 16:24:38 05/18/19 23 05/18/2022 CBC/C OMPLE TE BLD COUNT W/DIF F immature granulocytes ,absolute 0.05 x10'3 /uL 0.00-0 .05 Not Available [facility] (Lab) [address] [place], [address], 05/18/2022 16:24:38 05/18/19 23 05/18/2022 CBC/C OMPLE TE BLD COUNT W/DIF F nucleated red blood cells 0.0 % -0 Not Available [facility] (Lab) [address] [place], [address], 05/18/2022 16:24:38 05/18/19 23 05/18/2022 CBC/C OMPLE TE BLD COUNT W/DIF F NRBC# 0.00 x10'3 /uL Not Available [facility] (Lab) [address] [place], [address], 05/18/2022 16:24:38 05/18/19 23 05/18/2022 CBC/C OMPLE TE BLD COUNT W/DIF F microcytosis occasi onal Not Available [facility] (Lab) [address] [place], [address], 05/18/2022 16:24:38 05/18/19 23 05/18/2022 CBC/C OMPLE TE BLD COUNT W/DIF F anisocytosis occasi onal Not Available [facility] (Lab) [address] [place], [address], 05/18/2022 16:24:38 05/18/19 23 05/18/2022 CBC/C OMPLE TE BLD COUNT W/DIF F poikilocytos is occasi onal Not Available [facility] (Lab) [address] [place], [address], 05/18/2022 16:24:38 05/18/19 23 05/18/2022 CBC/C OMPLE TE BLD COUNT W/DIF F hypochromia 1+ Not Available [facility] (Lab) [address] [place], [address], 05/18/2022 16:24:38 05/18/19 23 05/18/2022 IRON/ TIBC PANEL total iron binding capacity 507 mcg/d L 265-47 5 high Not Available [facility] (Lab) [address] [place], [address], 05/18/2022 16:23:45 05/18/19 23 05/18/2022 IRON/ TIBC PANEL % transferrin saturation 6 % 20-55 low Not Available [facility] (Lab) [address] [place], [address], 05/18/2022 16:23:45 05/18/19 23 05/18/2022 IRON/ TIBC PANEL unsaturated iron bind capacity 475 mcg/d L 126-38 2 high Not Available [facility] (Lab) [address] [place], [address], 05/18/2022 16:23:45 05/18/19 23 05/18/2022 IRON/ TIBC PANEL iron 32 mcg/d L 42-175 low Not Available [facility] (Lab) [address] [place], [address], 05/18/2022 16:23:45 05/18/19 23 05/18/2022 LIPID PANEL [...] WILL NOT BE REPOR FRANCIS. Not Available [facility] (Lab) [address] [place], [address], 05/18/2022 16:22:24 05/18/19 23 05/18/2022 LIPID PANEL cholesterol 165 mg/dL 140-19 9 NIH BETTINA NSUS RECOM MENDA TION FOR HERMILO STERO L: ADULT CHILD LOW RISK: <200 <170 BORDE RLINE : <200- 239 ----- HIGH RISK: >240 >200 Not Available [facility] (Lab) [address] [place], [address], 05/18/2022 16:22:24 05/18/19 23 05/18/2022 LIPID PANEL triglyceride s 136 mg/dL 0-150 NIH BETTINA NSUS REPOR T RECOM MENDA TION FOR TRIGL YCERI MIKAYLA: ADULT CHILD LOW RISK: <150 ----- BODER LINE: 150-1 99 ----- HIGH RISK: >200 ----- Not Available [facility] (Lab) [address] [place], [address], 05/18/2022 16:22:24 05/18/19 23 05/18/2022 LIPID PANEL HDL cholesterol 50 mg/dL 40- Not Available [facility] (Lab) [address] [place], [address], 05/18/2022 16:22:24 05/18/19 23 05/18/2022 COMPR EHENS SUSANNAH METAB OLIC PANEL glucose 76 mg/dL 70-99 Not Available [facility] (Lab) [address] [place], [address], 05/18/2022 16:22:20 05/18/19 23 05/18/2022 COMPR EHENS SUSANNAH METAB OLIC PANEL sodium 137 mmol/ L 137-14 5 Not Available [facility] (Lab) [address] [place], [address], 05/18/2022 16:22:20 05/18/19 23 05/18/2022 COMPR EHENS SUSANNAH METAB OLIC PANEL potassium 4.4 mmol/ L 3.5-5. 1 Not Available [facility] (Lab) [address] [place], [address], 05/18/2022 16:22:20 05/18/19 23 05/18/2022 COMPR EHENS SUSANNAH METAB OLIC PANEL chloride 104 mmol/ L 98-107 Not Available [facility] (Lab) [address] [place], [address], 05/18/2022 16:22:20 02/23/20 23 05/18/2022 COMPR EHENS SUSANNAH METAB OLIC PANEL carbon dioxide 26 mmol/ L 22-30 Not Available [facility] (Lab) [address] [place], [address], 05/18/2022 16:22:20 05/18/19 23 05/18/2022 COMPR EHENS SUSANNAH METAB OLIC PANEL anion gap 11.4 mmol/ L 14-22 low Not Available [facility] (Lab) [address] [place], [address], 05/18/2022 16:22:20 05/18/19 23 05/18/2022 COMPR EHENS SUSANNAH METAB OLIC PANEL BUN 9 mg/dL 8-19 Not Available [facility] (Lab) [address] [place], [address], 05/18/2022 16:22:20 05/18/19 23 05/18/2022 COMPR EHENS SUSANNAH METAB OLIC PANEL creatinine 0.61 mg/dL 0.66-1 .25 low Not Available [facility] (Lab) [address] [place], [address], 05/18/2022 16:22:20 05/18/19 23 05/18/2022 COMPR EHENS SUSANNAH METAB OLIC PANEL aspartate aminotransfe rase 20 U/L 15-37 Not Available [facility] (Lab) [address] [place], [address], 05/18/2022 16:22:20 05/18/19 23 05/18/2022 COMPR EHENS SUSANNAH METAB OLIC PANEL GFR >60 Refer ence Range : [place] ge GFR Healt hy Adult : >60 [...] calcu lator is avail able on the [facility] websi te: [email or web address] :[email or web address] del carmen [email or web address] rg/pr ofess ional s/kdo qi/gf r_cal culat or Not Available [facility] (Lab) [address] [place], [address], 05/18/2022 16:22:20 05/18/19 23 05/18/2022 COMPR EHENS SUSANNAH METAB OLIC PANEL alkaline phosphatase 90 U/L 38-126 Not Available [facility] (Lab) [address] [place], [address], 05/18/2022 16:22:20 05/18/19 23 05/18/2022 COMPR EHENS SUSANNAH METAB OLIC PANEL alanine aminotransfe rase 16 U/L 0-35 Not Available [facility] (Lab) [address] [place], [address], 05/18/2022 16:22:20 05/18/19 23 05/18/2022 COMPR EHENS SUSANNAH METAB OLIC PANEL bilirubin, total 0.50 mg/dL 0.20-1 .30 Not Available [facility] (Lab) [address] [place], [address], 05/18/2022 16:22:20 05/18/19 23 05/18/2022 COMPR EHENS SUSANNAH METAB OLIC PANEL calcium 8.9 mg/dL 8.4-10 .2 Not Available [facility] (Lab) [address] [place], [address], 05/18/2022 16:22:20 05/18/19 23 05/18/2022 COMPR EHENS SUSANNAH METAB OLIC PANEL total protein 7.1 g/dL 6.3-8. 2 Not Available [facility] (Lab) [address] [place], [address], 05/18/2022 16:22:20 05/18/19 23 05/18/2022 COMPR EHENS SUSANNAH METAB OLIC PANEL albumin 4.0 g/dL 3.4-5. 0 Not Available [facility] (Lab) [address] [place], [address], 05/18/2022 16:22:20 05/18/19 23 05/18/2022 COMPR EHENS SUSANNAH METAB OLIC PANEL globulin 3.1 g/dL 2.6-4. 2 Not Available [facility] (Lab) [address] [place], [address], 05/18/2022 16:22:20 05/18/19 23 05/18/2022 COMPR EHENS SUSANNAH METAB OLIC PANEL A/G ratio 1.3 ratio 1.0-2. 0 Not Available [facility] (Lab) [address] [place], [address], 05/18/2022 16:22:20 12/29/1912/28/2022 CBC/C OMPLE TE BLD COUNT W/DIF F white blood cells 8.9 x10'3 /uL 4.2-10 .8 Not Available [facility] (Lab) [address] [place], [address], 12/28/2022 15:48:32 12/29/1912/28/2022 CBC/C OMPLE TE BLD COUNT W/DIF F red blood cells 4.49 x10'6 /uL 3.80-5 .20 Not Available [facility] (Lab) [address] [place], [address], 12/28/2022 15:48:32 12/29/19 23 12/28/2022 CBC/C OMPLE TE BLD COUNT W/DIF F hemoglobin 10.6 g/dL 12.0-1 5.6 low Not Available [facility] (Lab) [address] [place], [address], 12/28/2022 15:48:32 12/29/1912/28/2022 CBC/C OMPLE TE BLD COUNT W/DIF F hematocrit 35.5 % 35.7-4 5.7 low Not Available [facility] (Lab) [address] [place], [address], 12/28/2022 15:48:32 12/29/1912/28/2022 CBC/C OMPLE TE BLD COUNT W/DIF F mean red cell volume 79.1 fL 82.0-9 9.0 low Not Available [facility] (Lab) [address] [place], [address], 12/28/2022 15:48:32 12/29/19 23 12/28/2022 CBC/C OMPLE TE BLD COUNT W/DIF F mean red cell hemoglobin 23.6 pg 27.0-3 3.0 low Not Available [facility] (Lab) [address] [place], [address], 12/28/2022 15:48:32 12/29/19 23 12/28/2022 CBC/C OMPLE TE BLD COUNT W/DIF F mean RBC HGB concentratio n 29.9 g/dL 31.0-3 6.0 low Not Available [facility] (Lab) [address] [place], [address], 12/28/2022 15:48:32 12/29/19 23 12/28/2022 CBC/C OMPLE TE BLD COUNT W/DIF F red cell distribution width 17.4 % 11.8-1 5.5 high Not Available [facility] (Lab) [address] [place], [address], 12/28/2022 15:48:32 12/29/1912/28/2022 CBC/C OMPLE TE BLD COUNT W/DIF F platelets 429 x10'3 /uL 150-40 0 high Not Available [facility] (Lab) [address] [place], [address], 12/28/2022 15:48:32 12/29/1912/28/2022 CBC/C OMPLE TE BLD COUNT W/DIF F mean platelet volume 9.3 fL 9.0-12 .4 Not Available [facility] (Lab) [address] [place], [address], 12/28/2022 15:48:32 12/29/1912/28/2022 CBC/C OMPLE TE BLD COUNT W/DIF F neutrophils 70.0 % 39.0-7 2.0 Not Available [facility] (Lab) [address] [place], [address], 12/28/2022 15:48:32 12/29/1912/28/2022 CBC/C OMPLE TE BLD COUNT W/DIF F lymphocytes 22.5 % 16.0-4 7.0 Not Available [facility] (Lab) [address] [place], [address], 12/28/2022 15:48:32 12/29/1912/28/2022 CBC/C OMPLE TE BLD COUNT W/DIF F monocytes 3.6 % 5.0-12 .0 low Not Available [facility] (Lab) [address] [place], [address], 12/28/2022 15:48:32 12/29/19 23 12/28/2022 CBC/C OMPLE TE BLD COUNT W/DIF F eosinophils 2.0 % 1.0-7. 0 Not Available [facility] (Lab) [address] [place], [address], 12/28/2022 15:48:32 12/29/1912/28/2022 CBC/C OMPLE TE BLD COUNT W/DIF F basophils 0.6 % 0.0-2. 0 Not Available [facility] (Lab) [address] [place], [address], 12/28/2022 15:48:32 12/29/1912/28/2022 CBC/C OMPLE TE BLD COUNT W/DIF F immature granulocytes 1.3 % 0.00-0 .50 high Not Available [facility] (Lab) [address] [place], [address], 12/28/2022 15:48:32 12/29/1912/28/2022 CBC/C OMPLE TE BLD COUNT W/DIF F neutrophils, absolute count 6.25 x10'3 /uL 1.5-8. 0 Not Available [facility] (Lab) [address] [place], [address], 12/28/2022 15:48:32 12/29/1912/28/2022 CBC/C OMPLE TE BLD COUNT W/DIF F lymphocytes, absolute count 2.01 x10'3 /uL 1.07-3 .43 Not Available [facility] (Lab) [address] [place], [address], 12/28/2022 15:48:32 12/29/19 23 12/28/2022 CBC/C OMPLE TE BLD COUNT W/DIF F monocytes, absolute count 0.32 x10'3 /uL 0.29-0 .99 Not Available [facility] (Lab) [address] [place], [address], 12/28/2022 15:48:32 12/29/1912/28/2022 CBC/C OMPLE TE BLD COUNT W/DIF F eosinophils, absolute count 0.18 x10'3 /uL 0.02-0 .53 Not Available [facility] (Lab) [address] [place], [address], 12/28/2022 15:48:32 12/29/1912/28/2022 CBC/C OMPLE TE BLD COUNT W/DIF F basophils, absolute count 0.05 x10'3 /uL 0.01-0 .08 Not Available [facility] (Lab) [address] [place], [address], 12/28/2022 15:48:32 12/29/1912/28/2022 CBC/C OMPLE TE BLD COUNT W/DIF F immature granulocytes ,absolute 0.12 x10'3 /uL 0.00-0 .05 high Not Available [facility] (Lab) [address] [place], [address], 12/28/2022 15:48:32 12/29/1912/28/2022 CBC/C OMPLE TE BLD COUNT W/DIF F nucleated red blood cells 0.0 % -0 Not Available [facility] (Lab) [address] [place], [address], 12/28/2022 15:48:32 12/29/19 23 12/28/2022 CBC/C OMPLE TE BLD COUNT W/DIF F NRBC# 0.00 x10'3 /uL Not Available [facility] (Lab) [address] [place], [address], 12/28/2022 15:48:32 12/29/19 23 12/28/2022 CBC/C OMPLE TE BLD COUNT W/DIF F hypochromia 1+ Not Available [facility] (Lab) [address] [place], [address], 12/28/2022 15:48:32 12/29/1912/28/2022 COMPR EHENS SUSANNAH METAB OLIC PANEL sodium 137 mmol/ L 137-14 5 Not Available [facility] (Lab) [address] [place], [address], 12/28/2022 14:27:40 12/29/1912/28/2022 COMPR EHENS SUSANNAH METAB OLIC PANEL potassium 4.3 mmol/ L 3.5-5. 1 Not Available [facility] (Lab) [address] [place], [address], 12/28/2022 14:27:40 12/29/1912/28/2022 COMPR EHENS SUSANNAH METAB OLIC PANEL chloride 100 mmol/ L 98-107 Not Available [facility] (Lab) [address] [place], [address], 12/28/2022 14:27:40 12/29/19 23 12/28/2022 COMPR EHENS SUSANNAH METAB OLIC PANEL carbon dioxide 28 mmol/ L 22-30 Not Available [facility] (Lab) [address] [place], [address], 12/28/2022 14:27:40 12/29/19 23 12/28/2022 COMPR EHENS SUSANNAH METAB OLIC PANEL anion gap 13.3 mmol/ L 14-22 low Not Available [facility] (Lab) [address] [place], [address], 12/28/2022 14:27:40 12/29/19 23 12/28/2022 COMPR EHENS SUSANNAH METAB OLIC PANEL glucose 96 mg/dL 70-99 Not Available [facility] (Lab) [address] [place], [address], 12/28/2022 14:27:40 12/29/19 23 12/28/2022 COMPR EHENS SUSANNAH METAB OLIC PANEL BUN 11 mg/dL 8-19 Not Available [facility] (Lab) [address] [place], [address], 12/28/2022 14:27:40 12/29/19 23 12/28/2022 COMPR EHENS SUSANNAH METAB OLIC PANEL creatinine 0.61 mg/dL 0.66-1 .25 low Not Available [facility] (Lab) [address] [place], [address], 12/28/2022 14:27:40 12/29/1912/28/2022 COMPR EHENS SUSANNAH METAB OLIC PANEL GFR >60 Refer ence Range : [place] ge GFR Healt hy Adult : >60 [...] or ethni c subgr oups, such as [facility] nics. Outsi de the valid ated [...] calcu lator is avail able on the F websi te: [email or web address] :[email or web address] del carmen [email or web address] rg/pr ofess ional s/kdo qi/gf r_cal culat or Not Available [facility] (Lab) [address] [place], [address], 12/28/2022 14:27:40 12/29/1912/28/2022 COMPR EHENS SUSANNAH METAB OLIC PANEL alkaline phosphatase 79 U/L 38-126 Not Available [facility] (Lab) [address] [place], [address], 12/28/2022 14:27:40 12/29/1912/28/2022 COMPR EHENS SUSANNAH METAB OLIC PANEL alanine aminotransfe rase 16 U/L 0-35 Not Available [facility] (Lab) [address] [facility] [place], [address], 12/28/2022 14:27:40 12/29/1912/28/2022 COMPR EHENS SUSANNAH METAB OLIC PANEL aspartate aminotransfe rase 18 U/L 15-37 Not Available [facility] (Lab) [address] [place], [address], 12/28/2022 14:27:40 12/29/1912/28/2022 COMPR EHENS SUSANNAH METAB OLIC PANEL bilirubin, total 0.50 mg/dL 0.20-1 .30 Not Available [facility] (Lab) [address] [place], [address], 12/28/2022 14:27:40 12/29/1912/28/2022 COMPR EHENS SUSANNAH METAB OLIC PANEL calcium 9.6 mg/dL 8.4-10 .2 Not Available [facility] (Lab) [address] [facility] [place], [address], 12/28/2022 14:27:40 12/29/1912/28/2022 COMPR EHENS SUSANNAH METAB OLIC PANEL total protein 7.1 g/dL 6.3-8. 2 Not Available [facility] (Lab) [address] [place], [address], 12/28/2022 14:27:40 12/29/19 23 12/28/2022 COMPR EHENS SUSANNAH METAB OLIC PANEL albumin 3.9 g/dL 3.4-5. 0 Not Available [facility] (Lab) [address] [place], [place], [id number], 12/28/2022 14:27:40 12/29/1912/28/2022 COMPR EHENS SUSANNAH METAB OLIC PANEL globulin 3.2 g/dL 2.6-4. 2 Not Available [facility] (Lab) [address] [place], [address], 12/28/2022 14:27:40 12/29/1912/28/2022 COMPR EHENS SUSANNAH METAB OLIC PANEL A/G ratio 1.2 ratio 1.0-2. 0 Not Available [facility] (Lab) [address] [place], [address], 12/28/2022 14:27:40 12/29/1912/28/2022 LIPID PANEL cholesterol 185 mg/dL 140-19 9 NIH BETTINA NSUS RECOM MENDA TION FOR HERMILO STERO L: ADULT CHILD LOW RISK: <200 <170 BORDE RLINE : <200- 239 ----- HIGH RISK: >240 >200 Not Available [facility] (Lab) [address] [place], [address], 12/28/2022 14:27:45 12/29/1912/28/2022 LIPID PANEL triglyceride s 164 mg/dL 0-150 high NIH BETTINA NSUS REPOR T RECOM MENDA TION FOR TRIGL YCERI MIKAYLA: ADULT CHILD LOW RISK: <150 ----- BODER LINE: 150-1 99 ----- HIGH RISK: >200 ----- Not Available [facility] (Lab) [address] [place], [address], 12/28/2022 14:27:45 12/29/1912/28/2022 LIPID PANEL HDL cholesterol 45 mg/dL 40- Not Available [facility] (Lab) [address] [place], [address], 12/28/2022 14:27:45 12/29/1912/28/2022 LIPID PANEL LDL cholesterol, calculated 107 mg/dL 0-130 NIH BETTINA NSUS REPOR T [...] WILL NOT BE REPOR FRANCIS. Not Available [facility] (Lab) [address] [place], [address], 12/28/2022 14:27:45 12/29/1912/28/2022 IRON/ TIBC PANEL total iron binding capacity 478 mcg/d L 265-47 5 high Not Available [facility] (Lab) [address] [place], [address], 12/28/2022 14:35:13 12/29/1912/28/2022 IRON/ TIBC PANEL % transferrin saturation 7 % 20-55 low Not Available [facility] (Lab) [address] [place], [address], 12/28/2022 14:35:13 12/29/1912/28/2022 IRON/ TIBC PANEL unsaturated iron bind capacity 443 mcg/d L 126-38 2 high Not Available [facility] (Lab) [address] [place], [address], 12/28/2022 14:35:13 12/29/1912/28/2022 IRON/ TIBC PANEL iron 35 mcg/d L 42-175 low Not Available [facility] (Lab) [address] [place], [address], 12/28/2022 14:35:13 12/29/1912/28/2022 VITAM IN D 25-HY DROXY vd25oh 33.9 NG/mL 30-100 Vitam in D Statu s: Defic ient: <20 ng/mL Insuf ficie nt: 20-29 ng/mL Suffi cient : 30-10 0 ng/mL Not Available [facility] (Lab) [address] [place], [address], 12/28/2022 14:44:34 12/29/1912/28/2022 TSH W/REF CHRISTIAN FT4 TSH with reflex free T4 3.460 uIU/m L 0.465- 4.680 Not Available [facility] (Lab) [address] [place], [address], 12/28/2022 14:56:56 12/29/1912/28/2022 MIMI TIN ferritin 13 NG/mL 6.24-1 37 Not Available [facility] (Lab) [address] [place], [address], 12/28/2022 15:00:56 12/29/1912/28/2022 VITAM IN B12 (DAMI JAMES ) vb12 348 pg/mL 239-93 1 Not Available [facility] (Lab) [address] [place], [address], 12/28/2022 15:33:01 12/29/1912/28/2022 FOLAT E, SERUM /PLAS MA folate 13.6 NG/mL 2.76-2 0.0 Not Available [facility] (Lab) [address] [place], [address], 12/28/2022 15:33:06 12/29/1912/28/2022 HEMOG LOBIN A1C HA1C 5.3 % 4.0-6. 0 Diabe davie Scree jerrod Crite bradley: <5.7% Consi stent with absen ce of diabe davie 5.7-6 .4% Consi stent with incre ased risk for diabe davie (pred iabet es) >OR=6 .5% Consi stent with diabe davie REFER ENCE: Diabe davie Care 2016, 39(Walsh ppl.1 ):s13 -s22 Not Available [facility] ([facility]) [address] [facility], [place], [address], 12/28/2022 18:07:30 Result Notes None recorded. Problems Name Problem SNOMED Code Status Onset Date Resolution Date Notes Provider Name and Address Organization Details Recorded Time Constipat ion 19728285 Active Farida Philip APRN [address] [facility], [facility] [address], [place], [address] , [employer] 4 12:12:28 Acute sinusitis 26401873 Active Not Available [employer] 3 05:42:19 Iron deficienc y anemia of 703926757 Completed Not Available [facility] 3 00:47:12 Gastroeso phageal reflux disease 242429164 Active Farida Philip APRN [address] [facility], [facility] [address], [place], [address] , [employer] 4 12:12:32 Feeling faint 080388815 Active Not Available [employer] 3 05:42:19 Anemia 135935337 Active Farida Philip APRN [address] [facility], [address] [place] [address], [place], [address] , [employer] 4 12:12:18 Anemia of 68703268 Completed Not Available [employer] 3 00:47:13 Reduced movement 315624253 Completed Not Available [employer] 3 00:47:13 Urinary tract infection in 389960904 Completed Will need VLADISLAV Not Available [employer] 3 00:47:13 Exception ally large at 18569691 Completed Not Available [employer] 3 00:47:13 Pre-eclam psia 049423497 Completed Not Available [employer] 3 00:47:13 Obesity 981263762 Active Farida Philip APRN [address], [place], [address] , [employer] 4 12:12:55 Postpartu m depressio n 48081117 Completed Not Available [facility] 3 00:47:14 Postpartu m state 98906131 Completed Not Available [facility] 3 00:47:14 Low back pain 098705580 Active 2016 Not Available [facility] 3 05:42:19 Ulcer 287793653 Active 2020 Not Available [facility] 3 05:42:19 Cough 27981358 Active 2021 Not Available [facility] 3 05:42:19 Vitamin D deficienc y 24158706 Active 2021 Farida Philip APRN [address], [place], [address] , [employer] 4 12:12:50 COVID-19 834807121 Active 2021 Not Available [facility] 3 05:42:19 Cobalamin deficienc y 279352351 Active 2022 Farida Philip APRN [address], [place], [address] , [employer] 4 12:12:24 Iron deficienc y anemia 26884970 Active 2022 Farida Philip APRN [address], [place], [address] , [employer] 4 12:12:38 Vitamin B12 level below reference range 006574464 Active 2022 Not Available [facility] 3 05:42:19 Mixed anxiety and depressiv e disorder 882039900 Active 2022 Farida Philip APRN [address], [place], [address] , [employer] 4 12:12:46 Attention deficit hyperacti vity disorder 628013992 Active 2022 Farida Philip APRN [address], [place], [address] , [employer] [facility] [employer] 4 12:12:21 Hyperlipi demia 17264498 Active 2022 Farida Philip APRN [address], [place], [address] , [employer] 4 12:12:34 Menorrhag ia 033578504 Active 2022 Not Available [facility] 3 05:42:19 Migraine 24765599 Active 2022 Farida Philip APRN [address], [place], [address] , [employer] 4 12:12:41 Prediabet es 620857086 Active 2022 Not Available [facility] 3 05:42:19 Gastroeso phageal reflux disease without esophagit is 196898676 Active 2022 Not Available [facility] 3 05:42:19 Morbid obesity 743924321 Active 2022 Farida Philip APRN [address] [facility], [place], [address] , [employer] 4 12:12:43 Pain in left foot 76576993130 9107 Active 2022 Not Available [facility] 3 05:42:19 Problem Notes None recorded. Procedures Surgical History Date Name Laterality Status Provider Name and Address Organization Details Recorded Time 3 Hysterectomy, Partial completed Lita Vargas MA [employer] 12/26/2022 11:24:52 1 Date of Last Pap Smear completed Not Available [facility] 05/24/2022 00:42:21 7 delivery completed Not Available [facility] 05/24/2022 00:42:26 7 TEST EVALUATOR Procedure completed Not Available [facility] 2022 00:42:26 Orthopedic Procedure completed Not Available [facility] 05/24/2022 00:42:26 Imaging Results None recorded. Procedure Notes None recorded. Medical Equipment None Reported. Allergies Allergen ID Allergen Name Allergen Category Reaction Reaction Severity Criticality Documentation Date Start Date Code Code System Note Provider Name and Address Organization Details Recorded Time 694 Product containin g penicilli n (product) medicatio n other moderate Not available 05/24/2022 61883 8001 SNOMED rx'n unkno wn? Not Available [facility] 00:54:35 Medications Name Sig Start Date Stop Date Status Note LastModified by Organization Details LastModified Time vitamin b-12 500mcg tablets TAKE 1 TABLET BY MOUTH EVERY DAY active Not Available Not Available No t Available Singulair 10 mg tablet Take 1 tablet every day by oral route. active Not Available Not Available No t Available amoxicillin 500 mg capsule TAKE 1 CAPSULE BY MOUTH TWICE DAILY FOR 10 DAYS 12/26 completed Not Available Not Available Not Available hydrocodone 7.5 mg-ibuprofe n 200 mg tablet 10/07 completed Not Available Not Available Not Available cetirizine 10 mg tablet Take 1 tablet every day by oral route. 10/28 completed Not Available Not Available Not Available azithromyci n 250 mg tablet TAKE 2 TABLETS BY MOUTH FOR 1 DAY THEN TAKE 1 TABLET BY MOUTH DAILY FOR 4 DAYS 07/08 completed Not Available Not Available Not Available ibuprofen 800 mg tablet TAKE 1 TABLET BY MOUTH EVERY 6 HOURS NEEDED 06/06 completed Not Available Not Available Not Available methylpheni date 10 mg tablet active Not Available Not Available Not Available hydrocodone 5 mg-acetamin ophen 325 mg tablet TAKE 1 TABLET BY MOUTH EVERY 4 HOURS NEEDED 12/26 completed Not Available Not Available Not Available ondansetron HCl 4 mg tablet Take 1- 2 TABLETs EVERY 8 HOURS by oral route as necessary for nausea active Not Available Not Available No t Available famotidine 40 mg tablet TAKE 1 TABLET BY MOUTH EVERY DAY AT BEDTIME NEEDED active Not Available Not Available No t Available Tubersol 5 tub. unit/0.1 mL intradermal injection solution active Not Available Not Available Not Available penicillin V potassium 500 mg tablet 10/07 completed Not Available Not Available Not Available Flonase 50 mcg/actuati on nasal spray,suspe nsion Inhale 2 sprays every day by intranasa l route in the evening. active Not Available Not Available No t Available phentermine 37.5 mg tablet TAKE 1/2 TABLET BY MOUTH IN THE MORNING FOR 4 DAYS THEN TAKE 1 TABLET BY MOUTH IN THE MORNING THEREAFTE R 06/06 completed Not Available Not Available Not Available omeprazole 40 mg capsule,del ayed release TK ONE C PO D active Not Available Not Available No t Available tramadol 50 mg tablet TAKE 1 TO 2 TABLETS EVERY 6 HOURS NEEDED FOR PAIN 06/06 completed Not Available Not Available Not Available cyanocobala min (vit B-12) 500 mcg tablet Take 1 tablet every day by oral route. active Not Available Not Available No t Available cephalexin 500 mg capsule Take 1 capsule every 6 hours by oral route as directed for 7 days. active Not Available Not Available No t Available pantoprazol e 40 mg tablet,juan yed release TAKE 1 TABLET BY MOUTH EVERY DAY IN THE MORNING active Not Available Not Available No t Available codeine 10 mg-guaifene sin 100 mg/5 mL oral liquid TAKE 5 ML BY MOUTH EVERY 6 HOURS NEEDED FOR COUGH 07/08 completed Not Available Not Available Not Available ergocalcife rol (vitamin D2) 1,250 mcg (50,000 unit) capsule TAKE ONE CAPSULE BY MOUTH ONCE A WEEK active Not Available Not Available No t Available iFerex 150 150 mg iron capsule Take 1 capsule every day by oral route. 10/07 completed Not Available Not Available Not Available Tylenol-Cod eine #3 300 mg-30 mg tablet Take 1 tablet every 4-6 hours by oral route as needed. 08/10 completed Not Available Not Available Not Available methylpredn isolone 4 mg tablets in a dose pack FOLLOW PACKAGE DIRECTION S 07/08 completed Not Available Not Available Not Available albuterol sulfate HFA 90 mcg/actuati on aerosol inhaler INHALE 2 PUFFS BY MOUTH FOUR TIMES DAILY NEEDED FOR SHORTNESS OF BREATH OR WHEEZING active Not Available Not Available No t Available Zoloft 100 mg tablet Take 1 tablet every day by oral route. 11/16 completed Not Available Not Available Not Available norethindro ne (contracept susannah) 0.35 mg tablet TAKE 1 TABLET BY MOUTH DAILY 02/23 completed Not Available Not Available Not Available sertraline 50 mg tablet Take 1 tablet(s) every day by oral route. active Not Available Not Available No t Available amoxicillin 875 mg-potassiu m clavulanate 125 mg tablet TAKE 1 TABLET BY MOUTH TWICE DAILY UNTIL ALL TAKEN 06/06 completed Not Available Not Available Not Available bupropion HCl XL 300 mg 24 hr tablet, extended release active Not Available Not Available Not Available bupropion HCl XL 150 mg 24 hr tablet, extended release TAKE 1 TABLET BY MOUTH EVERY DAY x 2 weeks, then increase to 300mg dose active Not Available Not Available No t Available nitrofurant oin monohydrate /macrocryst als 100 mg capsule Take 1 capsule every 12 hours by oral route for 5 days. active Not Available Not Available No t Available iron TK 1T PO QD 2020 active Not Available Not Available Not Avai lable multivitami n TK 1T PO QD 2020 active Not Available Not Available Not Avai lable drospirenon e 3 mg-ethinyl estradiol 0.02 mg tablet TAKE 1 TABLET BY MOUTH EVERY DAY 06/06 completed Not Available Not Available Not Available FeroSul 325 mg (65 mg iron) tablet TAKE 1 TABLET BY MOUTH TWICE DAILY active Not Available Not Available No t Available omeprazole 20 mg tablet,juan yed release Take by oral route. 12/15 completed Not Available Not Available Not Available Lo Loestrin Fe 1 mg-10 mcg (24)/10 mcg (2) tablet Take 1 tablet every day by oral route. active Not Available Not Available No t Available Amanda 3 mg-0.03 mg tablet TAKE 1 TABLET BY MOUTH EVERY DAY 06/06 completed Not Available Not Available Not Available PNV 29-1 29 mg iron-1 mg tablet Take 1 tablet every day by oral route. 10/07 completed Not Available Not Available Not Available Aurovela Fe 1.5/30 (28) 1.5 mg-30 mcg (21)/75 mg (7) tablet TK 1 T PO D active Not Available Not Available No t Available Ubrelvy 100 mg tablet active Not Available Not Available No t Available Wegovy 1 mg/0.5 mL subcutaneou s pen injector ADMINISTE R 1 MG UNDER THE SKIN EVERY WEEK active Not Available Not Available No t Available Wegovy 0.25 mg/0.5 mL subcutaneou s pen injector INJECT 0.25 MG UNDER THE SKIN EVERY WEEK 06/15 completed Not Available Not Available Not Available Wegovy 0.5 mg/0.5 mL subcutaneou s pen injector INJECT 0.5 MG UNDER THE SKIN EVERY WEEK 08/09 completed Not Available Not Available Not Available Paxlovid 300 mg (150 mg x 2)-100 mg tablets in a dose pack Take 3 tablets twice a day by oral route for 5 days. active Not Available Not Available No t Available Mounjaro 7.5 mg/0.5 mL subcutaneou s pen injector Inject 7.5 mg every week by subcutane ous route. 02/23 completed Not Available Not Available Not Available Mounjaro 5 mg/0.5 mL subcutaneou s pen injector Inject 5 mg every week by subcutane ous route. 02/23 completed Not Available Not Available Not Available Mounjaro 2.5 mg/0.5 mL subcutaneou s pen injector Inject 2.5 mg every week by subcutane ous route. active Not Available Not Available No t Available Vitals Date Recorded Body mass index (BMI) Body height Oxygen saturation Heart rate Body temperature Body weight Systolic And Diastolic Provider Name and Address Organization Details Last Updated DateTime 3 52.8 kg/m2 160.02 cm 97 % 102 /min 97.4 [degF] 860938. 53 g 128/80 mm[Hg] Not Available [facility] 3 00:43:20 Date Recorded Body height Body mass index (BMI) Body weight Body temperature Heart rate Oxygen saturation Systolic And Diastolic Provider Name and Address Organization Details Last Updated DateTime 3 160.02 cm 52.1 kg/m2 365153. 16 g 97.2 [degF] 90 /min 98 % 128/76 mm[Hg] Lita Vargas, VIRGIL [place] - [facility] [place] [employer] [facility] 3 11:38:34 Date Recorded Body mass index (BMI) Body height Oxygen saturation Heart rate Body temperature Body weight Systolic And Diastolic Provider Name and Address Organization Details Last Updated DateTime 2 52.6 kg/m2 160.02 cm 99 % 102 /min 97.6 [degF] 115981. 93 g 128/82 mm[Hg] Not Available [facility] 3 00:43:20 Date Recorded Body height Body mass index (BMI) Body weight Body temperature Heart rate Oxygen saturation Systolic And Diastolic Provider Name and Address Organization Details Last Updated DateTime 3 160.02 cm 54 kg/m2 527905. 67 g 97.5 [degF] 78 /min 98 % 134/78 mm[Hg] Lita Vargas MA [place] - [facility] 3 11:27:44 Date Recorded Body mass index (BMI) Body height Oxygen saturation Heart rate Body temperature Body weight Systolic And Diastolic Provider Name and Address Organization Details Last Updated DateTime 2 51.7 kg/m2 160.02 cm 97 % 92 /min 97.6 [degF] 840260. 97 g 128/76 mm[Hg] Not Available [facility] 3 00:43:20 Social History Question Answer Notes LastModified by [employer] ion Details LastModified Time Tobacco Smoking Status Never Smoker Not Available [facility] 05/24/2022 00:40:40 Do You Have An Advance Directive? No [id number] Information not available 05/24/2022 What Is Your Level Of Caffeine Consumption? Heavy [id number].[id number] Information not available 05/24/2022 How Much Tobacco Do You Chew? None MIGRATION.[id number] Information not available 05/24/2022 In The 14 Days Before Symptom Onset, Have You Had Close Contact With A Laboratory-confir med COVID-19 While That Case Was Ill? No [id number] Information not available 05/24/2022 In The 14 Days Before Symptom Onset, Have You Had Close Contact With A Person Who Is Under Investigation For COVID-19 While That Person Was Ill? No [id number].[id number] [id number] Information not available 05/24/2022 What Type Of Diet Are You Following? REGULAR [id number].[id number] 3485 Information not available 05/24/2022 Which Illicit Or Recreational Drugs Have You Used? None [id number].[id number] [id number] Information not available 05/24/2022 What Is The Highest Grade Or Level Of School You Have Completed Or The Highest Degree You Have Received? [id number] 5254 Information not available 05/24/2022 Have There Been Any Changes To Your Family Or Social Situation? No [id number].[id number] [id number] Information not available 05/24/2022 What Is The Fluoride Status Of Your Home? Unknown MIGRATION.[id number] Information not available 05/24/2022 Are There Any Guns Present In Your Home? Yes MIGRATION.[id number] 6635 Information not available 05/24/2022 Do You Use Insect Repellent Routinely? Yes [id number].[id number] 9178 Information not available 05/24/2022 [facility] MIGRATION.[id number] 7476 Information not available 05/24/2022 Do You Have A Medical Power Of Weapons Engineer? No MIGRATION.899421 2088 Information not available 05/24/2022 What Was The Date Of Your Most Recent Tobacco Screening? 12/26/2022 Information not available 12/26/2022 Do You Have Any Pets? Yes [id number].[id number] Information not available 05/24/2022 What Is Your Relationship Status? MIGRATION.662711 3702 Information not available 05/24/2022 Do You Use Your Seat Belt Or Car Seat Routinely? Yes MIGRATION.[id number] 5824 Information not available 05/24/2022 Do You Have Smoke And Carbon Monoxide Detectors In Your Home? Yes MIGRATION.707218 5539 Information not available 05/24/2022 Are You Passively Exposed To Smoke? No MIGRATION.571806 0261 Information not available 05/24/2022 Are There Any Smokers In Your House? No MIGRATION.790781 2378 Information not available 05/24/2022 How Much Tobacco Do You Smoke? No MIGRATION.328006 6272 Information not available 05/24/2022 Do You Use Sunscreen Routinely? Yes Information not available 06/15/2022 Has Tobacco Cessation Counseling Been Provided? No MIGRATION.128607 6381 Information not available 05/24/2022 Have You Recently Traveled Abroad? No MIGRATION.[id number] 2510 Information not available 05/24/2022 Do You Have Any Dietary Restrictions? No MIGRATION.988917 8535 Information not available 05/24/2022 Sex: Unknown Functional Status Question Answer Note LastModified by Organizat ion Details LastModified Time Do you use any illicit or recreational drugs? No MIGRATION.022858 6389 Information not available 05/24/2022 Do you or have you ever used any other forms of tobacco or nicotine? No MIGRATION.094074 8940 Information not available 05/24/2022 What is your level of alcohol consumption? Occasional MIGRATION.364664 2953 Information not available 05/24/2022 Do you or have you ever used smokeless tobacco? Never used smokeless tobacco MIGRATION.893789 0916 Information not available 05/24/2022 Do you or have you ever used e-cigarettes or vape? Never used electronic cigarettes MIGRATION.229478 3656 Information not available 05/24/2022 What is your exercise level? Occasional MIGRATION.580865 7283 Information not available 05/24/2022 Mental Status Question Answer Note LastModified by Organizat ion Details LastModified Time Do you feel stressed (tense, restless, nervous, or anxious, or unable to sleep at night)? [id number] [id number].[id number] Information not available 05/24/2022 Family History Relationship Description Onset Age of this Age Resolved Age Notes LastModified by Organization Details LastModified Time Father Diabetes mellitus [id number] Not available 05/24/2022 00:42:28 Father Hypertensive disorder [id number].[id number] Not available 05/24/2022 00:42:28 Mother Heart disease MIGRATION.[id number] Not available 05/24/2022 00:42:29 Maternal Aunt Malignant neoplasm of ovary MIGRATION.652 [id number] Not available 05/24/2022 00:42:29 Maternal Aunt Malignant neoplasm of breast MIGRATION.649 [id number] Not available 05/24/2022 00:42:29 Medical History Condition Response HAVE YOU BEEN HOSPITALIZED OR SE[facility] IN [facility] IN THE PAST YEAR ? N ANEMIA/BLOOD DISORDER Y Gynecological History Statement/Question Response Abnormal Pap N Flow Heavy Date of LMP 12/06/2020 Dislike of Light during Menstrual Headac he Y STIs/STDs N Duration of Flow (days) 6 Current Control Method Tubal Ligat ion Age at Menarche 10 Breast Problems knot L breast How many live births 2 Sexually Active? Y Weight gain Menses Monthly Y Date of Last Pap Smear 12/08/2020 Obstetrics History GPAL:G 2 P 2 0 0 2 Type Value Full Term 2 Living 2 Total 2 Immunizations Vaccine Type Date Status Note Provider Nam e and Address Organization Details Recorded Time TST-PPD intradermal 5 completed Not Available [facility] 01/03/2023 05:42:19 COVID-19, mRNA, LNP-S, PF, 100 mcg/0.5mL dose or 50 mcg/0.25mL dose 1 completed Farida Philip APRN [address], [place], [address], [facility] [employer] [facility] [employer] [facility] 12/12/2023 10:43:25 COVID-19, mRNA, LNP-S, PF, 100 mcg/0.5mL dose or 50 mcg/0.25mL dose 1 completed Farida Philip APRN [address], [place], [address], [facility] [employer] [facility] [employer] [facility] 12/12/2023 10:43:25 Influenza, split virus, quadrivalent, PF 2 completed Not Available [facility] 01/03/2023 05:42:19 Hep B, adult 5 completed Not Available [facility] 01/03/2023 05:42:19 Past Encounters Encounter ID Performer Location Encounter Start Date Encounter Closed Date Diagnosis/Indication Diagnosis SNOMED-CT Code Diagnosis ICD10 Code Diagnosis IMO Codes Diagnosis Note [id number] [facility] Internal Med [facility] [address] [facility] [address] [place] [address] 08/31/2020 00:00:00 08/31/2020 17:51:28 [id number] Dhruv sullivan MD [facility] [place] [facility]eeshan katharina [address] [facility] , [place] [address] 11/17/2020 00:00:00 11/17/2020 15:39:40 [id number] [facility] [facility] ic_[facility] _ATHENA_M IGRATION_ DEFAULT_1 _1 , 12/08/2020 00:00:00 12/08/2020 12:52:45 [id number] Dhruv sullivan MD [facility] [facility] [address] [place] [address] 06/06/2021 00:00:00 06/06/2021 17:45:24 [id number] MD AMA [facility] [address] [place] [address] 07/08/2021 00:00:00 07/08/2021 14:10:24 [id number] MD PAUL [facility] [address] [place] [address] 08/12/2021 00:00:00 08/12/2021 16:46:12 [id number] CAROL Montoya [facility] [address] [facility] [address] [place] [address] 10/13/2021 00:00:00 10/13/2021 16:16:33 [id number] MD AMA [facility] [address] [facility] [address] [place] [address] 12/15/2021 00:00:00 12/15/2021 16:13:14 [id number] MD AMA [facility] [address] [facility] [address] [facility] [address] [place] [address] 02/23/2022 00:00:00 02/23/2022 12:50:58 [id number] Dhruv sullivan MD [facility] [address] [place] [address] 05/18/2022 00:00:00 05/18/2022 17:36:51 [id number] Abraham Cornejo MD [facility] [address] [place] [address] 05/27/2020 00:00:00 05/27/2020 12:51:01 [id number] MD PAUL [facility] [address] [facility] [place] [address] 06/15/2022 11:22:17 06/15/2022 12:02:03 Iron deficiency anemia [id number] D50.9 having issues tolerating PO iron did see Dr. Hawley, he recommende d iron infusion but it's $600 with her insurance, so she has decided not to do thisis working with TEST EVALUATOR to control the menorrhagi a Vitamin B1 2 level below reference range 011959184 R79.9 on PO supplement Vitamin D deficiency 347 68982 E55.9 on supplement Mixed anxi ety and depressive disorder [id number] F41.8 on wellbutrin , she is aware of side effects, risks, benefits call office if any change in mood or behavior she was seeing psych (Chantal) but doesn't want to go back as she is not wanting to be on ritalin anymore Attention deficit hyperactivity disorder [id number] F90.9 was seeing psych- was on ritalin, didn't like the way it made her feel Hyperlipidemia 78236996 E78.5 mild, continue diet/exerc ise efforts Menorrhagia 613425347 N9 2.0 follows TEST EVALUATOR, needs to make her appt, she states she charity is planning either ablation or IUD Migraine 69976831 G43.90 9 on ubrelvy prn, she is aware of side effects, risks, benefits Prediabetes 269521666 R7 3.03 continue to work on nutrition- start all meals/snac ks with a protein choice, then add fresh veg, fresh fruit, whole grainscont inue to work to increase exercise as tolerated to up to 30 min most days of the week Gastroesop hageal reflux disease without esophagitis [id number] K21.9 on protonix in AM, famotidine at hs, she is aware of side effects, risks, benefitsli festyle measures discussed, avoid tight clothing, do not eat 3 hours before bed, sleep at an incline Morbid obesity 705523365 E66.01 recommend healthy, well balanced mealsfocus on lean meats, fresh vegetables , fresh fruits, whole grainsredu ce fast/proce ssed foods or eating out to no more than 1-2 times per weekaim to get 30 min of exercise most days of the week- walking is a great choice increase Wegovypt is aware of side effects, risks, benefitspt denies any personal or family history of MEN II or MTC, denies and personal history of pancreatit ispt knows to call the office if any severe n/v or abdominal pain [id number] Dhruv sullivan MD [facility] [address] [facility] [place] [address] 12/26/2022 11:13:05 12/26/2022 12:05:18 Iron deficiency anemia 13646812 D50.9 having issues tolerating PO iron did see Dr. Hawley, he recommende d iron infusion but it's $600 with her insurance, so she has decided not to do this Vitamin B1 2 level below reference range 368892776 R79.9 on PO supplement Vitamin D deficiency 347 36366 E55.9 on supplement Mixed anxi ety and depressive disorder 888778641 F41.8 restart wellbutrin , she is aware of side effects, risks, benefitsca n start 150mg x 2 weeks, then can increase back to the 300mg she has at home call office if any change in mood or behavior she was seeing psych (Chantal) but doesn't want to go back as she is not wanting to be on ritalin anymore Attention deficit hyperactivity disorder 816963589 F90.9 was seeing psych- was on ritalin, didn't like the way it made her feel Hyperlipidemia 93592402 E78.5 mild, continue diet/exerc ise efforts Menorrhagia 632043077 N9 2.0 now is s/p hysterecto my Migraine 54120564 G43.90 9 on ubrelvy prn, she is aware of side effects, risks, benefits hasn't had any migraine since her hyst/is no longer having the menorrhagi a Prediabetes 255465358 R7 3.03 continue to work on nutrition- start all meals/snac ks with a protein choice, then add fresh veg, fresh fruit, whole grainscont inue to work to increase exercise as tolerated to up to 30 min most days of the week Gastroesop hageal reflux disease without esophagitis 745174942 K21.9 on protonix in AM, famotidine at hs, she is aware of side effects, risks, benefitsli festyle measures discussed, avoid tight clothing, do not eat 3 hours before bed, sleep at an incline Morbid obesity 578101790 E66.01 recommend healthy, well balanced mealsfocus on lean meats, fresh vegetables , fresh fruits, whole grainsredu ce fast/proce ssed foods or eating out to no more than 1-2 times per weekaim to get 30 min of exercise most days of the week- walking is a great choice restart Wegovysamp le box of 0.25mg given to patient todaythen she can transition to the 0.5mg and later the 1mg she has at home pt is aware of side effects, risks, benefitspt denies any personal or family history of MEN II or MTC, denies and personal history of pancreatit ispt knows to call the office if any severe n/v or abdominal pain Health Concerns Section Related Observation LastModified by Organization Detai ls LastModified Time None Recorded Concern Status LastModified by Organization Details LastModified Time None Recorded Advance Directives Directive N: Payers Insurance Date Sequence Insurance Name Policy Number Policy [place] Covered Member ID [place] Member ID Guarantor Name 07/14/2023 1 [place] [id number] Al Huang [id number] Mayela Huang Notes Date Note Type Note Provider Name and Address Organization Details Recorded Time 06/15/2022 text/html Mayela presents today for follow up. She's been tolerating the Wegovy very well. She denies any side effects, denies any n/v or abdominal pain. She reports the first two weeks she noticed an improvement in her cravings and was able to control her portions, but feels like the last two weeks, the effects have worn off and she has been experiencing cravings again. She reports she is not currently taking any control for the heavy periods. She was supposed to follow back up with TEST EVALUATOR to discuss ablation vs IUD, but hasn't done that yet. She tells me she plans to call this week for an appt. We discussed her labs again, that her iron and blood count remain low. She does not want to pay the cost for the iron infusion with hematology. She reports the periods remain very heavy with large clots. Her mood remains stable on current meds. She denies any SI/HI today. Violet CAROL Jeong [address], [place], [address], [employer] 06/15/2022 18:10:33 12/26/2022 text/html Mayela presents for follow-up. She missed her last appointment. She reports she had a hysterectomy in August for the menorrhagia. At that time it looks like gynaecological oncologist did her hematocrit and hemoglobin and her hemoglobin was in the mid 8s. She has not had her levels checked since then. She reports overall she has noticed she has had more energy. She has not been taking her iron her B12 supplement. She reports she stopped taking her Wellbutrin. She would like to restart it. She has been noticing she is more depressed lately. She denies any SI or HI today. She reports she has plenty of the 300 mg at home but does not have any of the 150 mg. She also had to stop the wegovy as it was back ordered. She would like to restart that. She does have some 0.5 mg at home. They also recently sent her 1 mg. She has not have any of the 0.25 mg, but I do have a sample box I can give her today. She denies any personal or family history of thyroid cancer, denies any personal history of pancreatitis. She reports she has been taking her Protonix but has been out of the Pepcid that she was using p.r.n.. She reports this combo did work for her GERD symptoms. She reports ever since she had her hysterectomy, her migraines have improved and she has not had any headaches recently. She is due for labs. She declines flu vaccine today. Violet CAROL Jeong [address], [place], [address], [employer] 12/26/2022 15:04:45 OBGyn Episode No OBEpisode recorded.
--- OUTSIDE RECORDS SUMMARY | 2025-02-12 18:57 | XMS_ITS | Clinical Summary ---
Author Organization [address] lt Address [address] [place] [address] Care Team Providers Care Phonograph Cartridge Assembler Name Role Phone Johanna Andrews NP Primary Care Provider [phone] Allergies Active Allergy Reactions Criticality Noted Date [...] total) by mouth daily 30 tablet 5 01/20/20 26 Active buPROPion XL (WELLBUTRIN XL) 300 mg 24 hr tabletIndication s:INES (generalized anxiety disorder),Recurr ent major depressive disorder, in partial remission Take 1 tablet (300 mg total) by mouth daily 30 tablet 5 01/20/20 25 Discontinu ed(Reorder ) Active Problems Problem Noted Date Diagnosed Date [...] Morbid obesity with BMI of 50.0-59.9, adult 0 11/2021 Assessment & Plan (07/20/2023 2:51 PM [...] Care Team Description 12/05/2024 Telephone [facility] [address] [place] [address] Johanna Andrews NP Symptom Based [...] Tobacco: Never Tobacco Cessation:Counseling Given: Not Answered [facility] Chuteities Answer Date Recorded In the past 12 months has [facility] [employer], gas, oil, or water [employer] threatened to shut off services in your [...] How often do you attend chur or buddhism services? 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 Testing performed by: [facility], [address] [place] [address], [place]., [address] Blood 07/20/2023 6:25 PM CDT 07/20/2023 6:25 PM CDT us Johanna Andrews NP LAB MICROBIOLOGY - GENERAL ORDER NAILA Final Result [facility]) [address] [facility] Department [place] [address] from Last 3 Months or Most Recently Relevant to Health Maintenance Insurance [employer] OOS Care Teams Phonograph Cartridge Assembler Relationship Specialty Start Date End Date Johanna Andrews NP PCP - General Family Medicine 07/20/23
[2025-02-12 18:58] VITALS: BP 147/87; PULSE 78; RESP 20; TEMP 37; O2SAT 100
--- NOTE | 2025-02-12 19:08 | ED_ITS ---
HPI - General Adult General Chief complaint: Wound/Laceration Stated complaint: lesion/wound under right breast Time Seen by Provider: 02/12/25 19:10 Source: patient, RN notes reviewed and old records reviewed Mode of arrival: ambulatory Limitations: no limitations History of Present Illness HPI narrative: 34 year old female with complaints of lesion wound under her right breast for the past 8 days. Patient has circular wound with some redness around edges and white to yellowish center noted. Patient reports that she is not sure what caused wound is unaware of insect bite. patient reports that she has noted some clear drainage form wound. She states that she has been applying Neosporin ointment and Pro heal band-aide. Patient reports no fevers, chills or sweats. MD complaint: wound lesion under right breast Onset (ago): day(s) (8) Severity: moderate Treatments prior to arrival: other (Neosporin ointment and pro heal band-aide) Related Data Allergies Allergy/AdvReac Type Severity Reaction Status Date / Time No Known Allergies Allergy Verified 02/12/25 19:04 Review of Systems Review of Systems: CONSTITUTIONAL: Denies fever, chills, or sweats. CARDIOVASCULAR: Denies chest pain, palpitations, or edema. RESPIRATORY: Denies cough or dyspnea. GASTROINTESTINAL: Denies abdominal pain, nausea, vomiting SKIN: Reports redness and swelling. Reports clear drainage, circular lesion with inside of lesion light yellow in color, redness around edges of wound noted. MUSCULOSKELETAL: Denies myalgia. NEUROLOGIC: Denies headache, numbness All systems reviewed & are unremarkable except as noted in HPI and below PMFSH Past Medical History Medical History Hx of migraines delivery delivered Encounter for tubal ligation 10/23/16 Anemia Surgical History Surgical History H/O gastric sleeve History of orthopedic surgery L foot Family History Family History Other Breast cancer Maternal Aunt Ovarian cancer Maternal Aunt Other Diabetes mellitus Heart disease Hypertension Social History Social History Smoking status: Never smoker Alcohol intake: current Alcohol use details: 2/MONTH Substance use: never Substance use type: does not use Living arrangements: with family Spiritual care concerns: No Comments At time of signature, agree with nursing past medical, surgical, social and family history. There is no relevant family history pertinent to the presenting complaint Exam Narrative: GENERAL: Well-appearing, well-nourished, and in no acute distress. HEAD: Normocephalic, atraumatic. EYES: PERRLA and EOMI. ENT: Nares clear, no rhinorrhea or epistaxis. Mucous membranes moist.TM's normal, throat pink with no exudates NECK: Supple.no lymphadenopathy CHEST: Clear to auscultation. No respiratory distress.SAO2 100% on room air HEART: Regular rate and rhythm. No murmur heard. Normal peripheral pulses. ABDOMEN: Soft, nontender, nondistended, normal active bowel sounds. EXTREMITIES: Normal range of motion. No edema. SKIN: Warm, dry. Erythema, induration, tenderness, 1.5cm X1 cm circular wound to underside of right breast with redness around edges, center of wound yellowish white,clear drainage reported. NEURO: No focal deficits. Alert and oriented x3. Course Course Emergency Course: Patient is aware of diagnosis, understands and agrees to treatment plan. Anticipatory guidance given. Patient agrees to follow-up as directed and is aware of reasons to seek care at the emergency department. Portions of this record may have been created with voice recognition software Level of Care: Express Care Visit Vital Signs Vital signs: Vital Signs Temperature 37.0 C 02/12/25 18:58 Pulse Rate 78 02/12/25 18:58 Respiratory Rate 20 02/12/25 18:58 Blood Pressure 147/87 H 02/12/25 18:58 Pulse Oximetry 100 02/12/25 18:58 Oxygen Delivery Room Air 02/12/25 18:58 Temperature 37.0 C 02/12/25 18:58 Pulse Rate 78 02/12/25 18:58 Respiratory Rate 20 02/12/25 18:58 Blood Pressure 147/87 H 02/12/25 18:58 Pulse Oximetry 100 02/12/25 18:58 Oxygen Delivery Room Air 02/12/25 18:58 Reviewed Medical Decision Making Differential Diagnosis Differential Diagnosis: abscess of skin, cellulitis, wound of right breast, Medical Records Medical records reviewed: Yes I reviewed the external patient's medical records. Vital Signs Vital Signs: Vital Signs Temperature 37.0 C 02/12/25 18:58 Pulse Rate 78 02/12/25 18:58 Respiratory Rate 20 02/12/25 18:58 Blood Pressure 147/87 H 02/12/25 18:58 Pulse Oximetry 100 02/12/25 18:58 Oxygen Delivery Room Air 02/12/25 18:58 Temperature 37.0 C 02/12/25 18:58 Pulse Rate 78 02/12/25 18:58 Respiratory Rate 20 02/12/25 18:58 Blood Pressure 147/87 H 02/12/25 18:58 Pulse Oximetry 100 02/12/25 18:58 Oxygen Delivery Room Air 02/12/25 18:58 reviewed Critical Care Time Critical Care Time Critical Care Time: No Discharge Plan Discharge Clinical Impression: Abscess of breast, right Patient Disposition: Home Condition: Stable Instructions: Antibiotic Form, Abscess (ED) Additional Instructions: Cleanse wound twice daily with liquid Dial soap rinse pat dry apply mupirocin ointment and sterile 4 x 4 for protection watch for increasing infection--redness, swelling, drainage Tylenol or ibuprofen for any fever pain for package instructions follow up with PCP in 7-10 days for a wound check recheck if develop fever, chills, increasing symptom Go to the ER if your symptoms become worse of if ANY new symptoms develop If your symptoms persist, change or worsen significantly before you can contact your personal physician then please, without delay, go to the emergency department for further evaluation. Follow-up with PCP in 7-10 days or sooner if needed Follow up with PCP soon in regards to your blood pressure which is elevated above threshold for referral. Blood pressure above 120/80 may indicate pre-hyp ertension. 147/87 monitor for any fevers Patient Language: Romansh Prescriptions: New mupirocin [Centany] 2 % ointment 1 applic topical BID Qty: 22 0RF Rx Instructions: to breast wound amoxicillin-pot clavulanate 875-125 mg tablet 1 tablet PO Q12H Qty: 20 0RF Rx Instructions: take with food, recommend eating Activa yogurt or taking probiotic while taking this medication Follow-up/Referrals: Darryl,Johanna Luis [Primary Care Provider, Unknown] Time of Disposition: 19:22 Quality [place] Coma Scale Eyes: Open Verbal: Oriented and Alert Motor: Follows Commands [place] Coma Total Score: 15
== END 2025-02-12 19:29 | disposition home or self-care (01) ==
PROVIDERS: Emergency Provider Registered Nurse; PCP Nurse Practitioner
DX: N61.1 Abscess of the breast and nipple (principal); Z98.84 Bariatric surgery status
CPT/HCPCS: 99213; G0463

== ENCOUNTER 2025-03-15 19:26 | Emergency (ER) | payer BC, MEDICAID, SELFPAY ==
--- OUTSIDE RECORDS SUMMARY | 2025-03-15 19:29 | XMS_ITS | Data Portability ---
Author Organization [facility], Main Office Address [address] [place] [address] Assessment Encounter Date Assessment Date Assessment LastModified by Organization Details LastModified Time 06/15/2022 06/15/2022 WWE-SAGGER SOAK- Dr. Austen GOLDSTEIN- 02/23/22 Call office if worse, ER if life threatening illness RTC 3 months She voices understanding of plan and agrees [email or web address] Not available 06/15/2022 18:09:56 12/26/2022 12/26/2022 FEROZ-SAGGER SOAK- Dr. Austen GOLDSTEIN- 02/23/22 Call office if worse, ER if life threatening illness RTC 1 month She voices understanding of plan and agrees [email or web address] Not available 12/26/2022 15:03:04 Plan of Treatment Reminders Order Date Submit Date Provider Last Modified By Organization Details Last Modified Time Details Appointments None recorded. Lab vitamin D, 25-hydroxy, total, serum 2022 023 [email or web address] [facility] (Lab), [address] [place], [address], 16:32:05 glycohemogl obin, total, blood 2022 023 [facility] (Lab), [address] [place], [address], 18:07:30 lipid panel, serum 2022 023 [facility] (Lab), [address] [place], [address], 14:27:45 TSH, serum or plasma 2022 [facility] (Lab), [address] [place], [address], 14:56:56 vitamin B12 + folate, serum or blood 2022 [email or web address] [facility] (Lab), [address] [place], [address], 16:32:04 ferritin, serum or plasma 2022 [facility] (Lab), [address] [place], [address], 15:00:56 iron + total iron-bindin g capacity (TIBC), serum 2022 [facility] (Lab), [address] [place], [address], 14:27:47 CBC w/ auto diff 2022 [facility] (Lab), [address] [place], [address], 14:26:45 CMP, serum or plasma 2022 [facility] (Lab), [address] [place], [address], 14:27:40 Referral None recorded. Procedures None recorded. Surgeries None recorded. Imaging None recorded. Medication Orders pantoprazol e 40 mg tablet,juan yed release 2022 [facility] #[id number], [address], [place], [place], [id number], 12:01:26 famotidine 40 mg tablet 2022 023 [facility] #[id number], [address], [place], [place], [id number], 3 12:01:18 bupropion HCl XL 150 mg 24 hr tablet, extended release 2022 023 [facility] #[id number], [address], [place], [place], [id number], 3 12:00:28 Wegovy 0.5 mg/0.5 mL subcutaneou s pen injector 2022 023 [email or web address] [facility] #[id number], [address], [place], [place], [id number], 3 09:43:27 Patient TargetsNo targets recorded. Patient InstructionsNo instructions recorded. Reason for Referral None Reported. Results Created Date Observation Date Name Description Value Unit Range Abnormal Flag Note LastModifiedBy Organization Detail LastModifiedTime 05/18/1905/19/2022 INSUL IN insulin 18.1 uIU/m L 2.6-24 .9 [facility]fo r[facility] at[facility] [address] [place] [id number] Lab Direc tor: Jones reese PhD, Phone : [phone] Not Available [facility] (Lab) [address] [place], [address], 05/19/2022 10:12:54 05/18/19 23 05/18/2022 FOLAT E, SERUM /PLAS MA folate 10.2 NG/mL 2.76-2 0.0 Not Available [facility] (Lab) [address] [place], [address], 05/18/2022 17:54:57 05/18/19 23 05/18/2022 VITAM IN B12 (DAMI JAMES ) vb12 342 pg/mL 239-93 1 Not Available [facility] (Lab) [address] [place], [address], 05/18/2022 17:54:55 05/18/1905/18/2022 VITAM IN D 25-HY DROXY vd25oh 21.6 NG/mL 30-100 low Vitam in D Statu s: Defic ient: <20 ng/mL Insuf ficie nt: 20-29 ng/mL Suffi cient : 30-10 0 ng/mL Not Available [facility] (Lab) [address] [place], [address], 05/18/2022 17:05:03 05/18/1905/18/2022 HEMOG LOBIN A1C HA1C 5.3 % 4.0-6. 0 Diabe davie Scree jerrod Crite bradley: <5.7% Consi stent with absen ce of diabe davie 5.7-6 .4% Consi stent with incre ased risk for diabe davie (pred iabet es) >OR=6 .5% Consi stent with diabe davie REFER ENCE: Diabe davie Care 2016, 39(Walsh ppl.1 ):s13 -s22 Not Available [facility] (Lab) [address] [place], [address], 05/18/2022 16:47:55 05/18/19 23 05/18/2022 MIMI TIN ferritin 12 NG/mL 6.24-1 37 Not Available [facility] (Lab) [address] [place], [address], 05/18/2022 16:47:45 05/18/19 23 05/18/2022 TSH thyroid-stim ulating hormone 3.500 uIU/m L 0.465- 4.680 Not Available [facility] (Lab) [address] [place], [address], 05/18/2022 16:46:38 05/18/19 23 05/18/2022 T4 FREE free T4 1.01 NG/dL 0.78-2 .19 Not Available [facility] (Lab) [address] [facility] [place], [address], 05/18/2022 16:46:02 05/18/19 23 05/18/2022 CBC/C OMPLE TE BLD COUNT W/DIF F hemoglobin 9.9 g/dL 12.0-1 5.6 low Not Available [facility] (Lab) [address] [place], [address], 05/18/2022 16:24:38 05/18/19 23 05/18/2022 CBC/C OMPLE TE BLD COUNT W/DIF F white blood cells 8.7 x10'3 /uL 4.2-10 .8 Not Available [facility] (Lab) [address] [place], [address], 05/18/2022 16:24:38 05/18/19 23 05/18/2022 CBC/C OMPLE TE BLD COUNT W/DIF F red blood cells 4.50 x10'6 /uL 3.80-5 .20 Not Available [facility] (Lab) [address] [place], [address], 05/18/2022 16:24:38 05/18/19 23 05/18/2022 CBC/C OMPLE TE BLD COUNT W/DIF F hematocrit 34.7 % 35.7-4 5.7 low Not Available [facility] (Lab) [address] [place], [address], 05/18/2022 16:24:38 05/18/19 23 05/18/2022 CBC/C OMPLE TE BLD COUNT W/DIF F mean red cell volume 77.1 fL 82.0-9 9.0 low Not Available [facility] (Lab) [address] [place], [address], 05/18/2022 16:24:38 02/23/05/18/2022 CBC/C OMPLE TE BLD COUNT W/DIF F mean red cell hemoglobin 22.0 pg 27.0-3 3.0 low Not Available [facility] (Lab) [address] [place], [address], 05/18/2022 16:24:38 05/18/19 23 05/18/2022 CBC/C OMPLE TE BLD COUNT W/DIF F mean RBC HGB concentratio n 28.5 g/dL 31.0-3 6.0 low Not Available [facility] (Lab) [address] [place], [address], 05/18/2022 16:24:38 05/18/19 23 05/18/2022 CBC/C OMPLE TE BLD COUNT W/DIF F red cell distribution width 18.5 % 11.8-1 5.5 high Not Available [facility] (Lab) [address] [place], [address], 05/18/2022 16:24:38 05/18/19 23 05/18/2022 CBC/C OMPLE TE BLD COUNT W/DIF F platelets 427 x10'3 /uL 150-40 0 high Not Available [facility] (Lab) [address] [place], [address], 05/18/2022 16:24:38 05/18/19 23 05/18/2022 CBC/C OMPLE TE BLD COUNT W/DIF F mean platelet volume 8.8 fL 9.0-12 .4 low Not Available [facility] (Lab) [address] [place], [address], 05/18/2022 16:24:38 05/18/19 23 05/18/2022 CBC/C OMPLE TE BLD COUNT W/DIF F neutrophils 65.4 % 39.0-7 2.0 Not Available [facility] (Lab) [address] [place], [address], 05/18/2022 16:24:38 05/18/19 23 05/18/2022 CBC/C OMPLE TE BLD COUNT W/DIF F lymphocytes 26.6 % 16.0-4 7.0 Not Available [facility] (Lab) [address] [place], [address], 05/18/2022 16:24:38 05/18/19 23 05/18/2022 CBC/C OMPLE TE BLD COUNT W/DIF F monocytes 3.9 % 5.0-12 .0 low Not Available [facility] (Lab) [address] [place], [address], 05/18/2022 16:24:38 05/18/19 23 05/18/2022 CBC/C OMPLE TE BLD COUNT W/DIF F eosinophils 2.9 % 1.0-7. 0 Not Available [facility] (Lab) [address] [place], [address], 05/18/2022 16:24:38 05/18/19 23 05/18/2022 CBC/C OMPLE TE BLD COUNT W/DIF F basophils 0.6 % 0.0-2. 0 Not Available [facility] (Lab) [address] [place], [address], 05/18/2022 16:24:38 05/18/19 23 05/18/2022 CBC/C OMPLE TE BLD COUNT W/DIF F immature granulocytes 0.6 % 0.00-0 .50 high Not Available [facility] (Lab) [address] [place], [address], 05/18/2022 16:24:38 05/18/19 23 05/18/2022 CBC/C OMPLE TE BLD COUNT W/DIF F neutrophils, absolute count 5.72 x10'3 /uL 1.5-8. 0 Not Available [facility] (Lab) [address] [place], [address], 05/18/2022 16:24:38 05/18/19 23 05/18/2022 CBC/C OMPLE TE BLD COUNT W/DIF F lymphocytes, absolute count 2.32 x10'3 /uL 1.07-3 .43 Not Available [facility] (Lab) [address] [place], [address], 05/18/2022 16:24:38 05/18/19 23 05/18/2022 CBC/C OMPLE TE BLD COUNT W/DIF F monocytes, absolute count 0.34 x10'3 /uL 0.29-0 .99 Not Available [facility] (Lab) [address] [place], [address], 05/18/2022 16:24:38 05/18/19 23 05/18/2022 CBC/C OMPLE TE BLD COUNT W/DIF F eosinophils, absolute count 0.25 x10'3 /uL 0.02-0 .53 Not Available [facility] (Lab) [address] [place], [address], 05/18/2022 16:24:38 05/18/19 23 05/18/2022 CBC/C OMPLE TE BLD COUNT W/DIF F basophils, absolute count 0.05 x10'3 /uL 0.01-0 .08 Not Available [facility] (Lab) [address] [place], [address], 05/18/2022 16:24:38 05/18/19 23 05/18/2022 CBC/C OMPLE TE BLD COUNT W/DIF F immature granulocytes ,absolute 0.05 x10'3 /uL 0.00-0 .05 Not Available [facility] (Lab) [address] [place], [address], 05/18/2022 16:24:38 05/18/19 23 05/18/2022 CBC/C OMPLE TE BLD COUNT W/DIF F nucleated red blood cells 0.0 % -0 Not Available [facility] (Lab) [address] [place], [address], 05/18/2022 16:24:38 05/18/19 23 05/18/2022 CBC/C OMPLE TE BLD COUNT W/DIF F NRBC# 0.00 x10'3 /uL Not Available [facility] (Lab) [address] [place], [address], 05/18/2022 16:24:38 05/18/19 23 05/18/2022 CBC/C OMPLE TE BLD COUNT W/DIF F microcytosis occasi onal Not Available [facility] (Lab) [address] [place], [address], 05/18/2022 16:24:38 05/18/19 23 05/18/2022 CBC/C OMPLE TE BLD COUNT W/DIF F anisocytosis occasi onal Not Available [facility] (Lab) [address] [place], [address], 05/18/2022 16:24:38 05/18/19 23 05/18/2022 CBC/C OMPLE TE BLD COUNT W/DIF F poikilocytos is occasi onal Not Available [facility] (Lab) [address] [place], [address], 05/18/2022 16:24:38 05/18/19 23 05/18/2022 CBC/C OMPLE TE BLD COUNT W/DIF F hypochromia 1+ Not Available [facility] (Lab) [address] [place], [address], 05/18/2022 16:24:38 05/18/19 23 05/18/2022 IRON/ TIBC PANEL total iron binding capacity 507 mcg/d L 265-47 5 high Not Available [facility] (Lab) [address] [place], [address], 05/18/2022 16:23:45 05/18/19 23 05/18/2022 IRON/ TIBC PANEL % transferrin saturation 6 % 20-55 low Not Available [facility] (Lab) [address] [place], [address], 05/18/2022 16:23:45 05/18/19 23 05/18/2022 IRON/ TIBC PANEL unsaturated iron bind capacity 475 mcg/d L 126-38 2 high Not Available [facility] (Lab) [address] [place], [address], 05/18/2022 16:23:45 05/18/19 23 05/18/2022 IRON/ TIBC PANEL iron 32 mcg/d L 42-175 low Not Available [facility] (Lab) [address] [place], [address], 05/18/2022 16:23:45 05/18/19 23 05/18/2022 LIPID PANEL [...] WILL NOT BE REPOR FRANCIS. Not Available [facility] (Lab) [address] [place], [address], 05/18/2022 16:22:24 05/18/19 23 05/18/2022 LIPID PANEL cholesterol 165 mg/dL 140-19 9 NIH BETTINA NSUS RECOM MENDA TION FOR HERMILO STERO L: ADULT CHILD LOW RISK: <200 <170 BORDE RLINE : <200- 239 ----- HIGH RISK: >240 >200 Not Available [facility] (Lab) [address] [place], [address], 05/18/2022 16:22:24 05/18/19 23 05/18/2022 LIPID PANEL triglyceride s 136 mg/dL 0-150 NIH BETTINA NSUS REPOR T RECOM MENDA TION FOR TRIGL YCERI MIKAYLA: ADULT CHILD LOW RISK: <150 ----- BODER LINE: 150-1 99 ----- HIGH RISK: >200 ----- Not Available [facility] (Lab) [address] [place], [address], 05/18/2022 16:22:24 05/18/19 23 05/18/2022 LIPID PANEL HDL cholesterol 50 mg/dL 40- Not Available [facility] (Lab) [address] [place], [address], 05/18/2022 16:22:24 05/18/19 23 05/18/2022 COMPR EHENS SUSANNAH METAB OLIC PANEL glucose 76 mg/dL 70-99 Not Available [facility] (Lab) [address] [place], [address], 05/18/2022 16:22:20 05/18/19 23 05/18/2022 COMPR EHENS SUSANNAH METAB OLIC PANEL sodium 137 mmol/ L 137-14 5 Not Available [facility] (Lab) [address] [place], [address], 05/18/2022 16:22:20 05/18/19 23 05/18/2022 COMPR EHENS SUSANNAH METAB OLIC PANEL potassium 4.4 mmol/ L 3.5-5. 1 Not Available [facility] (Lab) [address] [place], [address], 05/18/2022 16:22:20 05/18/19 23 05/18/2022 COMPR EHENS SUSANNAH METAB OLIC PANEL chloride 104 mmol/ L 98-107 Not Available [facility] (Lab) [address] [place], [address], 05/18/2022 16:22:20 02/23/20 23 05/18/2022 COMPR EHENS SUSANNAH METAB OLIC PANEL carbon dioxide 26 mmol/ L 22-30 Not Available [facility] (Lab) [address] [place], [address], 05/18/2022 16:22:20 05/18/19 23 05/18/2022 COMPR EHENS SUSANNAH METAB OLIC PANEL anion gap 11.4 mmol/ L 14-22 low Not Available [facility] (Lab) [address] [place], [address], 05/18/2022 16:22:20 05/18/19 23 05/18/2022 COMPR EHENS SUSANNAH METAB OLIC PANEL BUN 9 mg/dL 8-19 Not Available [facility] (Lab) [address] [place], [address], 05/18/2022 16:22:20 05/18/19 23 05/18/2022 COMPR EHENS SUSANNAH METAB OLIC PANEL creatinine 0.61 mg/dL 0.66-1 .25 low Not Available [facility] (Lab) [address] [place], [address], 05/18/2022 16:22:20 05/18/19 23 05/18/2022 COMPR EHENS SUSANNAH METAB OLIC PANEL aspartate aminotransfe rase 20 U/L 15-37 Not Available [facility] (Lab) [address] [place], [address], 05/18/2022 16:22:20 05/18/19 23 05/18/2022 COMPR EHENS SUSANNAH METAB OLIC PANEL GFR >60 Refer ence Range : [place] ge GFR Healt hy Adult : >60 [...] calcu lator is avail able on the [facility] websi te: https :[email or web address] rg/pr ofess ional s/kdo qi/gf r_cal culat or Not Available [facility] (Lab) [address] [place], [address], 05/18/2022 16:22:20 05/18/19 23 05/18/2022 COMPR EHENS SUSANNAH METAB OLIC PANEL alkaline phosphatase 90 U/L 38-[address] [facility] (Lab) [address] [place], [address], 05/18/2022 16:22:20 05/18/19 23 05/18/2022 COMPR EHENS SUSANNAH METAB OLIC PANEL alanine aminotransfe rase 16 U/L 0-35 Not Available [facility] (Lab) [address] [place], [address], 05/18/2022 16:22:20 05/18/19 23 05/18/2022 COMPR EHENS SUSANNAH METAB OLIC PANEL bilirubin, total 0.50 mg/dL 0.20-1 .30 Not Available [facility] (Lab) [address] [place], [address], 05/18/2022 16:22:20 05/18/19 23 05/18/2022 COMPR EHENS SUSANNAH METAB OLIC PANEL calcium 8.9 mg/dL 8.4-10 .2 Not Available [facility] (Lab) [address] [place], [address], 05/18/2022 16:22:20 05/18/19 23 05/18/2022 COMPR EHENS SUSANNAH METAB OLIC PANEL total protein 7.1 g/dL 6.3-8. 2 Not Available [facility] (Lab) [address] [place], [address], 05/18/2022 16:22:20 05/18/19 23 05/18/2022 COMPR EHENS SUSANNAH METAB OLIC PANEL albumin 4.0 g/dL 3.4-5. 0 Not Available [facility] (Lab) [address] [place], [address], 05/18/2022 16:22:20 05/18/19 23 05/18/2022 COMPR EHENS SUSANNAH METAB OLIC PANEL globulin 3.1 g/dL 2.6-4. 2 Not Available [facility] (Lab) [address] [place], [address], 05/18/2022 16:22:20 05/18/19 23 05/18/2022 COMPR EHENS SUSANNAH METAB OLIC PANEL A/G ratio 1.3 ratio 1.0-2. 0 Not Available [facility] (Lab) [address] [place], [address], 05/18/2022 16:22:20 12/29/1912/28/2022 CBC/C OMPLE TE BLD COUNT W/DIF F white blood cells 8.9 x10'3 /uL 4.2-10 .8 Not Available [facility] (Lab) [address] [place], [address], 12/28/2022 15:48:32 12/29/1912/28/2022 CBC/C OMPLE TE BLD COUNT W/DIF F red blood cells 4.49 x10'6 /uL 3.80-5 .20 Not Available [facility] (Lab) [address] [place], [address], 12/28/2022 15:48:32 12/29/19 23 12/28/2022 CBC/C OMPLE TE BLD COUNT W/DIF F hemoglobin 10.6 g/dL 12.0-1 5.6 low Not Available [facility] (Lab) [address] [place], [address], 12/28/2022 15:48:32 12/29/1912/28/2022 CBC/C OMPLE TE BLD COUNT W/DIF F hematocrit 35.5 % 35.7-4 5.7 low Not Available [facility] (Lab) [address] [place], [address], 12/28/2022 15:48:32 12/29/1912/28/2022 CBC/C OMPLE TE BLD COUNT W/DIF F mean red cell volume 79.1 fL 82.0-9 9.0 low Not Available [facility] (Lab) [address] [place], [address], 12/28/2022 15:48:32 12/29/19 23 12/28/2022 CBC/C OMPLE TE BLD COUNT W/DIF F mean red cell hemoglobin 23.6 pg 27.0-3 3.0 low Not Available [facility] (Lab) [address] [place], [address], 12/28/2022 15:48:32 12/29/19 23 12/28/2022 CBC/C OMPLE TE BLD COUNT W/DIF F mean RBC HGB concentratio n 29.9 g/dL 31.0-3 6.0 low Not Available [facility] (Lab) [address] [place], [address], 12/28/2022 15:48:32 12/29/19 23 12/28/2022 CBC/C OMPLE TE BLD COUNT W/DIF F red cell distribution width 17.4 % 11.8-1 5.5 high Not Available [facility] (Lab) [address] [place], [address], 12/28/2022 15:48:32 12/29/1912/28/2022 CBC/C OMPLE TE BLD COUNT W/DIF F platelets 429 x10'3 /uL 150-40 0 high Not Available [facility] (Lab) [address] [place], [address], 12/28/2022 15:48:32 12/29/1912/28/2022 CBC/C OMPLE TE BLD COUNT W/DIF F mean platelet volume 9.3 fL 9.0-12 .4 Not Available [facility] (Lab) [address] [place], [address], 12/28/2022 15:48:32 12/29/1912/28/2022 CBC/C OMPLE TE BLD COUNT W/DIF F neutrophils 70.0 % 39.0-7 2.0 Not Available [facility] (Lab) [address] [place], [address], 12/28/2022 15:48:32 12/29/1912/28/2022 CBC/C OMPLE TE BLD COUNT W/DIF F lymphocytes 22.5 % 16.0-4 7.0 Not Available [facility] (Lab) [address] [place], [address], 12/28/2022 15:48:32 12/29/1912/28/2022 CBC/C OMPLE TE BLD COUNT W/DIF F monocytes 3.6 % 5.0-12 .0 low Not Available [facility] (Lab) [address] [place], [address], 12/28/2022 15:48:32 12/29/19 23 12/28/2022 CBC/C OMPLE TE BLD COUNT W/DIF F eosinophils 2.0 % 1.0-7. 0 Not Available [facility] (Lab) [address] [place], [address], 12/28/2022 15:48:32 12/29/1912/28/2022 CBC/C OMPLE TE BLD COUNT W/DIF F basophils 0.6 % 0.0-2. 0 Not Available [facility] (Lab) [address] [place], [address], 12/28/2022 15:48:32 12/29/1912/28/2022 CBC/C OMPLE TE BLD COUNT W/DIF F immature granulocytes 1.3 % 0.00-0 .50 high Not Available [facility] (Lab) [address] [place], [address], 12/28/2022 15:48:32 12/29/1912/28/2022 CBC/C OMPLE TE BLD COUNT W/DIF F neutrophils, absolute count 6.25 x10'3 /uL 1.5-8. 0 Not Available [facility] (Lab) [address] [place], [address], 12/28/2022 15:48:32 12/29/1912/28/2022 CBC/C OMPLE TE BLD COUNT W/DIF F lymphocytes, absolute count 2.01 x10'3 /uL 1.07-3 .43 Not Available [facility] (Lab) [address] [place], [address], 12/28/2022 15:48:32 12/29/19 23 12/28/2022 CBC/C OMPLE TE BLD COUNT W/DIF F monocytes, absolute count 0.32 x10'3 /uL 0.29-0 .99 Not Available [facility] (Lab) [address] [place], [address], 12/28/2022 15:48:32 12/29/1912/28/2022 CBC/C OMPLE TE BLD COUNT W/DIF F eosinophils, absolute count 0.18 x10'3 /uL 0.02-0 .53 Not Available [facility] (Lab) [address] [place], [address], 12/28/2022 15:48:32 12/29/1912/28/2022 CBC/C OMPLE TE BLD COUNT W/DIF F basophils, absolute count 0.05 x10'3 /uL 0.01-0 .08 Not Available [facility] (Lab) [address] [place], [address], 12/28/2022 15:48:32 12/29/1912/28/2022 CBC/C OMPLE TE BLD COUNT W/DIF F immature granulocytes ,absolute 0.12 x10'3 /uL 0.00-0 .05 high Not Available [facility] (Lab) [address] [place], [address], 12/28/2022 15:48:32 12/29/1912/28/2022 CBC/C OMPLE TE BLD COUNT W/DIF F nucleated red blood cells 0.0 % -0 Not Available [facility] (Lab) [address] [place], [address], 12/28/2022 15:48:32 12/29/19 23 12/28/2022 CBC/C OMPLE TE BLD COUNT W/DIF F NRBC# 0.00 x10'3 /uL Not Available [facility] (Lab) [address] [place], [address], 12/28/2022 15:48:32 12/29/19 23 12/28/2022 CBC/C OMPLE TE BLD COUNT W/DIF F hypochromia 1+ Not Available [facility] (Lab) [address] [place], [address], 12/28/2022 15:48:32 12/29/1912/28/2022 COMPR EHENS SUSANNAH METAB OLIC PANEL sodium 137 mmol/ L 137-14 5 Not Available [facility] (Lab) [address] [place], [address], 12/28/2022 14:27:40 12/29/1912/28/2022 COMPR EHENS SUSANNAH METAB OLIC PANEL potassium 4.3 mmol/ L 3.5-5. 1 Not Available [facility] (Lab) [address] [place], [address], 12/28/2022 14:27:40 12/29/1912/28/2022 COMPR EHENS SUSANNAH METAB OLIC PANEL chloride 100 mmol/ L 98-107 Not Available [facility] (Lab) [address] [place], [address], 12/28/2022 14:27:40 12/29/19 23 12/28/2022 COMPR EHENS SUSANNAH METAB OLIC PANEL carbon dioxide 28 mmol/ L 22-30 Not Available [facility] (Lab) [address] [place], [address], 12/28/2022 14:27:40 12/29/19 23 12/28/2022 COMPR EHENS SUSANNAH METAB OLIC PANEL anion gap 13.3 mmol/ L 14-22 low Not Available [facility] (Lab) [address] [place], [address], 12/28/2022 14:27:40 12/29/19 23 12/28/2022 COMPR EHENS SUSANNAH METAB OLIC PANEL glucose 96 mg/dL 70-99 Not Available [facility] (Lab) [address] [place], [address], 12/28/2022 14:27:40 12/29/19 23 12/28/2022 COMPR EHENS SUSANNAH METAB OLIC PANEL BUN 11 mg/dL 8-19 Not Available [facility] (Lab) [address] [place], [address], 12/28/2022 14:27:40 12/29/19 23 12/28/2022 COMPR EHENS SUSANNAH METAB OLIC PANEL creatinine 0.61 mg/dL 0.66-1 .25 low Not Available [facility] (Lab) [address] [place], [address], 12/28/2022 14:27:40 12/29/1912/28/2022 COMPR EHENS SUSANNAH METAB OLIC PANEL GFR >60 Refer ence Range : [place] ge GFR Healt hy Adult : >60 [...] ethni c subgr oups, such as [facility] nics. Outsi de the valid ated [...] s/kdo qi/gf r_cal culat or Not Available [facility] (Lab) [address] [place], [address], 12/28/2022 14:27:40 12/29/1912/28/2022 COMPR EHENS SUSANNAH METAB OLIC PANEL alkaline phosphatase 79 U/L 38-[address] [facility] (Lab) [address] [place], [address], 12/28/2022 14:27:40 12/29/1912/28/2022 COMPR EHENS SUSANNAH METAB OLIC PANEL alanine aminotransfe rase 16 U/L 0-35 Not Available [facility] (Lab) [address] [place], [address], 12/28/2022 14:27:40 12/29/1912/28/2022 COMPR EHENS SUSANNAH METAB OLIC PANEL aspartate aminotransfe rase 18 U/L 15-37 Not Available [facility] (Lab) [address] [place], [address], 12/28/2022 14:27:40 12/29/1912/28/2022 COMPR EHENS SUSANNAH METAB OLIC PANEL bilirubin, total 0.50 mg/dL 0.20-1 .30 Not Available [facility] (Lab) [address] [place], [address], 12/28/2022 14:27:40 12/29/1912/28/2022 COMPR EHENS SUSANNAH METAB OLIC PANEL calcium 9.6 mg/dL 8.4-10 .2 Not Available [facility] (Lab) [address] [facility] [place], [address], 12/28/2022 14:27:40 12/29/1912/28/2022 COMPR EHENS SUSANNAH METAB OLIC PANEL total protein 7.1 g/dL 6.3-8. 2 Not Available [facility] (Lab) [address] [place], [address], 12/28/2022 14:27:40 12/29/19 23 12/28/2022 COMPR EHENS SUSANNAH METAB OLIC PANEL albumin 3.9 g/dL 3.4-5. 0 Not Available [facility] (Lab) [address] [place], [address], 12/28/2022 14:27:40 12/29/1912/28/2022 COMPR EHENS SUSANNAH METAB OLIC PANEL globulin 3.2 g/dL 2.6-4. 2 Not Available [facility] (Lab) [address] [place], [address], 12/28/2022 14:27:40 12/29/1912/28/2022 COMPR EHENS SUSANNAH METAB OLIC PANEL A/G ratio 1.2 ratio 1.0-2. 0 Not Available [facility] (Lab) [address] [place], [address], 12/28/2022 14:27:40 12/29/1912/28/2022 LIPID PANEL cholesterol 185 mg/dL 140-19 9 NIH BETTINA NSUS RECOM MENDA TION FOR HERMILO STERO L: ADULT CHILD LOW RISK: <200 <170 BORDE RLINE : <200- 239 ----- HIGH RISK: >240 >200 Not Available [facility] (Lab) [address] [place], [address], 12/28/2022 14:27:45 12/29/1912/28/2022 LIPID PANEL triglyceride s 164 mg/dL 0-150 high NIH BETTINA NSUS REPOR T RECOM MENDA TION FOR TRIGL YCERI MIKAYLA: ADULT CHILD LOW RISK: <150 ----- BODER LINE: 150-1 99 ----- HIGH RISK: >200 ----- Not Available [facility] (Lab) [address] [place], [address], 12/28/2022 14:27:45 12/29/1912/28/2022 LIPID PANEL HDL cholesterol 45 mg/dL 40- Not Available [facility] (Lab) [address] [place], [address], 12/28/2022 14:27:45 12/29/1912/28/2022 LIPID PANEL LDL cholesterol, [...] WILL NOT BE REPOR FRANCIS. Not Available [facility] (Lab) [address] [place], [address], 12/28/2022 14:27:45 12/29/1912/28/2022 IRON/ TIBC PANEL total iron binding capacity 478 mcg/d L 265-47 5 high Not Available [facility] (Lab) [address] [place], [address], 12/28/2022 14:35:13 12/29/1912/28/2022 IRON/ TIBC PANEL % transferrin saturation 7 % 20-55 low Not Available [facility] (Lab) [address] [place], [address], 12/28/2022 14:35:13 12/29/1912/28/2022 IRON/ TIBC PANEL unsaturated iron bind capacity 443 mcg/d L 126-38 2 high Not Available [facility] (Lab) [address] [place], [address], 12/28/2022 14:35:13 12/29/1912/28/2022 IRON/ TIBC PANEL iron 35 mcg/d L 42-175 low Not Available [facility] (Lab) [address] [place], [address], 12/28/2022 14:35:13 12/29/1912/28/2022 VITAM IN D 25-HY DROXY vd25oh 33.9 NG/mL 30-100 Vitam in D Statu s: Defic ient: <20 ng/mL Insuf ficie nt: 20-29 ng/mL Suffi cient : 30-10 0 ng/mL Not Available [facility] (Lab) [address] [place], [address], 12/28/2022 14:44:34 12/29/1912/28/2022 TSH W/REF CHRISTIAN FT4 TSH with reflex free T4 3.460 uIU/m L 0.465- 4.680 Not Available [facility] (Lab) [address] [place], [address], 12/28/2022 14:56:56 12/29/1912/28/2022 MIMI TIN ferritin 13 NG/mL 6.24-1 37 Not Available [facility] (Lab) [address] [place], [address], 12/28/2022 15:00:56 12/29/1912/28/2022 VITAM IN B12 (DAMI JAMES ) vb12 348 pg/mL 239-93 1 Not Available [facility] (Lab) [address] [place], [address], 12/28/2022 15:33:01 12/29/1912/28/2022 FOLAT E, SERUM /PLAS MA folate 13.6 NG/mL 2.76-2 0.0 Not Available [facility] (Lab) [address] [place], [address], 12/28/2022 15:33:06 12/29/1912/28/2022 HEMOG LOBIN A1C HA1C 5.3 % 4.0-6. 0 Diabe davie Scree jerrod Crite bradley: <5.7% Consi stent with absen ce of diabe davie 5.7-6 .4% Consi stent with incre ased risk for diabe davie (pred iabet es) >OR=6 .5% Consi stent with diabe davie REFER ENCE: Diabe davie Care 2016, 39(Walsh ppl.1 ):s13 -s22 Not Available [facility] ([facility]) [address] [facility], [place], [address], 12/28/2022 18:07:30 Result Notes None recorded. Problems Name Problem SNOMED Code Status Onset Date Resolution Date Notes Provider Name and Address Organization Details Recorded Time Constipat ion 00227350 Active Farida Philip APRN [address] [facility], [facility] [address], [place], [address] , [employer] 4 12:12:28 Acute sinusitis 05432718 Active Not Available [employer] 3 05:42:19 Iron deficienc y anemia of 021205780 Completed Not Available [facility] 3 00:47:12 Gastroeso phageal reflux disease 756050074 Active Farida Philip APRN [address] [facility], [facility] [address], [place], [address] , [employer] 4 12:12:32 Feeling faint 600105112 Active Not Available [employer] 3 05:42:19 Anemia 659055815 Active Farida Philip APRN [address] [facility], [place] [address], [place], [address] , [employer] 4 12:12:18 Anemia of 70823458 Completed Not Available [employer] 3 00:47:13 Reduced movement 426416349 Completed Not Available [employer] 3 00:47:13 Urinary tract infection in 121168138 Completed Will need VLADISLAV Not Available [facility] 3 00:47:13 Exception ally large at 49306373 Completed Not Available [facility] 3 00:47:13 Pre-eclam psia 182667666 Completed Not Available [facility] 3 00:47:13 Obesity 957127538 Active Farida Philip APRN [address], [place], [address] , [employer] 4 12:12:55 Postpartu m depressio n 91746484 Completed Not Available [facility] 3 00:47:14 Postpartu m state 75952398 Completed Not Available [facility] 3 00:47:14 Low back pain 795835924 Active 2016 Not Available [facility] 3 05:42:19 Ulcer 757858657 Active 2020 Not Available [facility] 3 05:42:19 Cough 69032152 Active 2021 Not Available [facility] 3 05:42:19 Vitamin D deficienc y 40086311 Active 2021 Farida Philip APRN [address], [place], [address] , [employer] 4 12:12:50 COVID-19 123535833 Active 2021 Not Available [facility] 3 05:42:19 Cobalamin deficienc y 908156832 Active 2022 Farida Philip APRN [address], [place], [address] , [employer] 4 12:12:24 Iron deficienc y anemia 71921587 Active 2022 Farida Philip APRN [address], [place], [address] , [employer] 4 12:12:38 Vitamin B12 level below reference range 866828407 Active 2022 Not Available [facility] 3 05:42:19 Mixed anxiety and depressiv e disorder 519821876 Active 2022 Farida Philip APRN [address], [place], [address] , [employer] 4 12:12:46 Attention deficit hyperacti vity disorder 382623893 Active 2022 Farida Philip APRN [address], [place], [address] , [employer] [facility] [employer] 4 12:12:21 Hyperlipi demia 50058968 Active 2022 Farida Philip APRN [address], [place], [address] , [employer] 4 12:12:34 Menorrhag ia 876587083 Active 2022 Not Available [facility] 3 05:42:19 Migraine 47430807 Active 2022 Farida Philip APRN [address], [place], [address] , [employer] 4 12:12:41 Prediabet es 133986419 Active 2022 Not Available [facility] 3 05:42:19 Gastroeso phageal reflux disease without esophagit is 497401813 Active 2022 Not Available [facility] 3 05:42:19 Morbid obesity 338878353 Active 2022 Farida Philip APRN [address], [address] [facility], [place], [address] , [employer] 4 12:12:43 Pain in left foot 57687116501 9107 Active 2022 Not Available [facility] 3 05:42:19 Problem Notes None recorded. Procedures Surgical History Date Name Laterality Status Provider Name and Address Organization Details Recorded Time 3 Hysterectomy, Partial completed Lita Vargas MA [employer] 12/26/2022 11:24:52 1 Date of Last Pap Smear completed Not Available [facility] 05/24/2022 00:42:21 7 delivery completed Not Available [facility] 05/24/2022 00:42:26 7 [facility] Procedure completed Not Available [facility] 2022 00:42:26 Orthopedic Procedure completed Not Available [facility] 05/24/2022 00:42:26 Imaging Results None recorded. Procedure Notes None recorded. Medical Equipment None Reported. Allergies Allergen ID Allergen Name Allergen Category Reaction Reaction Severity Criticality Documentation Date Start Date Code Code System Note Provider Name and Address Organization Details Recorded Time 694 Product containin g penicilli n (product) medicatio n other moderate Not available 05/24/2022 14702 8001 SNOMED rx'n unkno wn? Not Available [facility] 00:54:35 Medications Name Sig Start Date Stop [...] cm 97 % 102 /min 97.4 [degF] 785742. 53 g 128/80 mm[Hg] Not Available [facility] 3 00:43:20 Date Recorded Body height Body mass index (BMI) Body weight Body temperature Heart rate Oxygen saturation Systolic And Diastolic Provider Name and Address Organization Details Last Updated DateTime 3 160.02 cm 52.1 kg/m2 486596. 16 g 97.2 [degF] 90 /min 98 % 128/76 mm[Hg] Lita Vargas, VIRGIL [place] [employer] [facility] 3 11:38:34 Date Recorded Body mass index (BMI) Body height Oxygen saturation Heart rate Body temperature Body weight Systolic And Diastolic Provider Name and Address Organization Details Last Updated DateTime 2 52.6 kg/m2 160.02 cm 99 % 102 /min 97.6 [degF] 098800. 93 g 128/82 mm[Hg] Not Available [facility] 3 00:43:20 Date Recorded Body height Body mass index (BMI) Body weight Body temperature Heart rate Oxygen saturation Systolic And Diastolic Provider Name and Address Organization Details Last Updated DateTime 3 160.02 cm 54 kg/m2 040728. 67 g 97.5 [degF] 78 /min 98 % 134/78 mm[Hg] Lita Vargas MA [place] - [facility] 3 11:27:44 Date Recorded Body mass index (BMI) Body height Oxygen saturation Heart rate Body temperature Body weight Systolic And Diastolic Provider Name and Address Organization Details Last Updated DateTime 2 51.7 kg/m2 160.02 cm 97 % 92 /min 97.6 [degF] 692659. 97 g 128/76 mm[Hg] Not Available [facility] 3 00:43:20 Social History Question Answer Notes LastModified by [email or web address] ion Details LastModified Time Tobacco Smoking Status Never Smoker Not Available [facility] 05/24/2022 00:40:40 Do You Have An Advance Directive? No MIGRATION.[id number] 5543 Information not available 05/24/2022 What Is Your Level Of Caffeine Consumption? Heavy MIGRATION.268710 2316 Information not available 05/24/2022 How Much Tobacco Do You Chew? None MIGRATION.075079 8523 Information not available 05/24/2022 In The 14 Days Before Symptom Onset, Have You Had Close Contact With A Laboratory-confir med COVID-19 While That Case Was Ill? No MIGRATION.114432 3964 Information not available 05/24/2022 In The 14 Days Before Symptom Onset, Have You Had Close Contact With A Person Who Is Under Investigation For COVID-19 While That Person Was Ill? No MIGRATION.068516 1414 Information not available 05/24/2022 What Type Of Diet Are You Following? REGULAR MIGRATION.391862 6884 Information not available 05/24/2022 Which Illicit Or Recreational Drugs Have You Used? None MIGRATION.682853 3094 Information not available 05/24/2022 What Is The Highest Grade Or Level Of School You Have Completed Or The Highest Degree You Have Received? FT50498-4 MIGRATION.347311 9781 Information not available 05/24/2022 Have There Been Any Changes To Your Family Or Social Situation? No MIGRATION.188061 1170 Information not available 05/24/2022 What Is The Fluoride Status Of Your Home? Unknown MIGRATION.406604 7418 Information not available 05/24/2022 Are There Any Guns Present In Your Home? Yes MIGRATION.754768 0629 Information not available 05/24/2022 Do You Use Insect Repellent Routinely? Yes MIGRATION.670245 0967 Information not available 05/24/2022 [facility] MIGRATION.625932 9760 Information not available 05/24/2022 Do You Have A Medical Power Of Film Waxer? No MIGRATION.255557 4237 Information not available 05/24/2022 What Was The Date Of Your Most Recent Tobacco Screening? 12/26/2022 Information not available 12/26/2022 Do You Have Any Pets? Yes MIGRATION.545723 9567 Information not available 05/24/2022 What Is Your Relationship Status? MIGRATION.641217 8460 Information not available 05/24/2022 Do You Use Your Seat Belt Or Car Seat Routinely? Yes MIGRATION.828171 9118 Information not available 05/24/2022 Do You Have Smoke And Carbon Monoxide Detectors In Your Home? Yes MIGRATION.733703 7773 Information not available 05/24/2022 Are You Passively Exposed To Smoke? No MIGRATION.890826 4342 Information not available 05/24/2022 Are There Any Smokers In Your House? No MIGRATION.913133 2235 Information not available 05/24/2022 How Much Tobacco Do You Smoke? No MIGRATION.607335 5183 Information not available 05/24/2022 Do You Use Sunscreen Routinely? Yes Information not available 06/15/2022 Has Tobacco Cessation Counseling Been Provided? No MIGRATION.917694 2047 Information not available 05/24/2022 Have You Recently Traveled Abroad? No MIGRATION.699780 5805 Information not available 05/24/2022 Do You Have Any Dietary Restrictions? No MIGRATION.493323 5815 Information not available 05/24/2022 Sex: Unknown Functional Status Question Answer Note LastModified by Organizat ion Details LastModified Time Do you use any illicit or recreational drugs? No MIGRATION.343629 3686 Information not available 05/24/2022 Do you or have you ever used any other forms of tobacco or nicotine? No MIGRATION.634378 4362 Information not available 05/24/2022 What is your level of alcohol consumption? Occasional MIGRATION.096166 0815 Information not available 05/24/2022 Do you or have you ever used smokeless tobacco? Never used smokeless tobacco MIGRATION.227403 8166 Information not available 05/24/2022 Do you or have you ever used e-cigarettes or vape? Never used electronic cigarettes MIGRATION.846750 6498 Information not available 05/24/2022 What is your exercise level? Occasional MIGRATION.843035 3326 Information not available 05/24/2022 Mental Status Question Answer Note LastModified by Organizat ion Details LastModified Time Do you feel stressed (tense, restless, nervous, or anxious, or unable to sleep at night)? [id number] MIGRATION.826245908 6 Information not available 05/24/2022 Family History Relationship Description Onset Age of this Age Resolved Age Notes LastModified by Organization Details LastModified Time Father Diabetes mellitus MIGRATION.137 [id number] Not available 05/24/2022 00:42:28 Father Hypertensive disorder MIGRATION.037 3530550 Not available 05/24/2022 00:42:28 Mother Heart disease MIGRATION.329 9038537 Not available 05/24/2022 00:42:29 Maternal Aunt Malignant neoplasm of ovary MIGRATION.715 9533181 Not available 05/24/2022 00:42:29 Maternal Aunt Malignant neoplasm of breast MIGRATION.135 2309545 Not available 05/24/2022 00:42:29 Medical History Condition Response HAVE YOU BEEN HOSPITALIZED OR SEEN IN [facility] IN THE PAST YEAR ? N [...] Time TST-PPD intradermal 5 completed Not Available [facility] 01/03/2023 05:42:19 COVID-19, mRNA, LNP-S, PF, 100 mcg/0.5mL dose or 50 mcg/0.25mL dose 1 completed Farida Philip APRN [address], [place], [address], [facility] [employer] [facility] 12/12/2023 10:43:25 COVID-19, mRNA, LNP-S, PF, 100 mcg/0.5mL dose or 50 mcg/0.25mL dose 1 completed Farida Philip APRN [address], [place], [address], [facility] [employer] [facility] 12/12/2023 10:43:25 Influenza, split virus, quadrivalent, PF 2 completed Not Available [facility] 01/03/2023 05:42:19 Hep B, adult 5 completed Not Available [facility] 01/03/2023 05:42:19 Past Encounters Encounter ID Performer Location Encounter Start Date Encounter Closed Date Diagnosis/Indication Diagnosis SNOMED-CT Code Diagnosis ICD10 Code Diagnosis IMO Codes Diagnosis Note [id number] Dhruv sullivan MD [facility] Internal Med [facility] [address] [facility] [address] [place] [address] 08/31/2020 00:00:00 08/31/2020 17:51:28 [id number] Dhruv sullivan MD [facility] [place] Zeeshan katharina [address] [facility] , [place] [address] 11/17/2020 00:00:00 11/17/2020 15:39:40 [id number] [facility] ic_[facility] _ATHENA_M IGRATION_ DEFAULT_1 _1 , 12/08/2020 00:00:00 12/08/2020 12:52:45 [id number] Dhruv sullivan MD [facility] [place] [address] [place] [address] 06/06/2021 00:00:00 06/06/2021 17:45:24 [id number] MD AMA [facility] Internal Med [address] [place] [address] 07/08/2021 00:00:00 07/08/2021 14:10:24 [id number] MD PAUL [facility] Internal Med [address] [place] [address] 08/12/2021 00:00:00 08/12/2021 16:46:12 [id number] CAROL Montoya [facility] Internal Med [address] [facility] [address] [facility] [place] [address] 10/13/2021 00:00:00 10/13/2021 16:16:33 [id number] MD AMA [facility] Internal Med [address] [facility] [address] [facility] [place] [address] 12/15/2021 00:00:00 12/15/2021 16:13:14 [id number] MD AMA [facility] Internal Med [address] [facility] [address] [facility] [facility] [address] [place] [address] 02/23/2022 00:00:00 02/23/2022 12:50:58 [id number] Dhruv sullivan MD [facility] Internal Med [address] [place] [address] 05/18/2022 00:00:00 05/18/2022 17:36:51 [id number] Abraham Cornejo MD [facility] [address] [place] [address] 05/27/2020 00:00:00 05/27/2020 12:51:01 [id number] MD PAUL [facility] Internal Med [address] [facility] [address] [facility] [place] [address] 06/15/2022 11:22:17 06/15/2022 12:02:03 Iron deficiency anemia 39983716 D50.9 having issues tolerating PO iron did see Dr. Hawley, he recommende d iron infusion but it's $600 with her insurance, so she has decided not to do thisis working with [facility] to control the menorrhagi a Vitamin B1 2 level below reference range 146533847 R79.9 on PO supplement Vitamin D deficiency 347 92730 E55.9 on supplement Mixed anxi ety and depressive disorder 239227991 F41.8 on wellbutrin , she is aware of side effects, risks, benefits call office if any change in mood or behavior she was seeing psych (Chantal) but doesn't want to go back as she is not wanting to be on ritalin anymore Attention deficit hyperactivity disorder 123592882 F90.9 was seeing psych- was on ritalin, didn't like the way it made her feel Hyperlipidemia 12705908 E78.5 mild, continue diet/exerc ise efforts Menorrhagia 476448014 N9 2.0 follows [facility], needs to make her appt, she states she charity is planning either ablation or IUD Migraine 41666728 G43.90 9 on ubrelvy prn, she is aware of side effects, risks, benefits Prediabetes 330667489 R7 3.03 continue to work on nutrition- start all meals/snac ks with a protein choice, then add fresh veg, fresh fruit, whole grainscont inue to work to increase exercise as tolerated to up to 30 min most days of the week Gastroesop hageal reflux disease without esophagitis 852192680 K21.9 on protonix in AM, famotidine at hs, she is aware of side effects, risks, benefitsli festyle measures discussed, avoid tight clothing, do not eat 3 hours before bed, sleep at an incline Morbid obesity 790003660 E66.01 recommend healthy, well balanced mealsfocus on [...] if any severe n/v or abdominal pain [id number] Dhruv sullivan MD [facility] Internal Med [facility] [address] [facility] [place] [address] 12/26/2022 11:13:05 12/26/2022 12:05:18 Iron deficiency anemia 13826654 D50.9 having issues tolerating PO iron did see Dr. Hawley, he recommende d iron infusion but it's $600 with her insurance, so she has decided not to do this Vitamin B1 2 level below reference range 423612582 R79.9 on PO supplement Vitamin D deficiency 347 70221 E55.9 on supplement Mixed anxi ety and depressive disorder 316439858 F41.8 restart wellbutrin , she is aware of side effects, risks, benefitsca n start 150mg x 2 weeks, then can increase back to the 300mg she has at home call office if any change in mood or behavior she was seeing psych (Chantal) but doesn't want to go back as she is not wanting to be on ritalin anymore Attention deficit hyperactivity disorder 513652522 F90.9 was seeing psych- was on ritalin, didn't like the way it made her feel Hyperlipidemia 17865308 E78.5 mild, continue diet/exerc ise efforts Menorrhagia 607925238 N9 2.0 now is s/p hysterecto my Migraine 78635291 G43.90 9 on ubrelvy prn, she is aware of side effects, risks, benefits hasn't had any migraine since her hyst/is no longer having the menorrhagi a Prediabetes 456406099 R7 3.03 continue to work on nutrition- start all meals/snac ks with a protein choice, then add fresh veg, fresh fruit, whole grainscont inue to work to increase exercise as tolerated to up to 30 min most days of the week Gastroesop hageal reflux disease without esophagitis 013593155 K21.9 on protonix in AM, famotidine at hs, she is aware of side effects, risks, benefitsli festyle measures discussed, avoid tight clothing, do not eat 3 hours before bed, sleep at an incline Morbid obesity 064295384 E66.01 recommend healthy, well balanced mealsfocus on [...] ID Guarantor Name 07/14/2023 1 [employer] ([place]) [id number] Al Huang [id number] Mayela Huang Notes Date Note Type Note [...] was supposed to follow back up with [facility] to discuss ablation vs IUD, but hasn't [...] CAROL Jeong [address], [place], [address], [employer] 06/15/2022 18:10:33 12/26/2022 text/html Mayela presents for follow-up. She missed her last appointment. She reports she had a hysterectomy in August for the menorrhagia. At that time it looks like disbursing officer did her hematocrit and hemoglobin and her [...] CAROL Jeong [address], [place], [address], [employer] 12/26/2022 15:04:45 OBGyn Episode No OBEpisode recorded.
--- OUTSIDE RECORDS SUMMARY | 2025-03-15 19:29 | XMS_ITS | Clinical Summary ---
Author Organization [address] lt Address [address] [place] [address] Care Team Providers Care Senior Windows Systems Administrator Name Role Phone Johanna Andrews NP Primary Care Provider [phone] Allergies Active Allergy Reactions Criticality Noted Date [...] mg total) by mouth daily 30 tablet 01/19/2025 01/20/20 26 Active Active Problems Problem Noted Date [...] 2013 Anxiety 2017 Migraines 1994 Menstrual problem 2007 Family History Medical History [...] Tobacco: Never Tobacco Cessation:Counseling Given: Not Answered [facility] Solar Flow-Throughities Answer Date Recorded In the past 12 months has e [employer], gas, oil, or water [employer] threatened to shut off services in your [...] 07/20/2023 How often do you attend chur ch or synagogue services? More than 4 times per year 07/20/2023 Do you belong to any clubs o r organizations such as episcopal groups, unions, fraternal or athletic groups, or [...] staff should administer the PHQ-9) 2 07/20/2023 [facility] - Occupational Stress Questionnaire Answer Date [...] place to sleep or slept in a assisted (including now)? 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 Testing performed by: [facility], [address] [place] [address]., [id number] Blood 07/20/2023 6:25 PM CDT 07/20/2023 6:25 PM CDT us Johanna Andrews NP LAB MICROBIOLOGY - GENERAL ORDER NAILA Final Result [facility] ([facility] Department [place] [address] from Last 3 Months or Most Recently Relevant to Health Maintenance Insurance [employer] O[employer] Care Teams Senior Windows Systems Administrator Relationship Specialty Start Date End Date Johanna Andrews NP PCP - General Family Medicine 07/20/23
--- OUTSIDE RECORDS SUMMARY | 2025-03-15 19:29 | XMS_ITS | Clinical Summary ---
Author Organization [facility] Address [address] [place] [address] Care Team Providers Care Tour Guide Name Role Phone Nishant Garvey MD Primary Care Provider [phone] Source Comments [facility],non-owned Affiliates and Associated Physician Practices is amultiple site organization consisting of ambulatory clinics and hospital sitesin [place], [place], [place] and [place]. This disclosure is being madepursuant to the Care Everywhere program and may not contain all information available regarding this patient. Last updated 17.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
[2025-03-15 19:33] VITALS: BP 152/103; PULSE 75; RESP 20; TEMP 36.1; O2SAT 100
--- NOTE | 2025-03-15 19:46 | ED.GENADULT ---
HPI - General Adult General Chief complaint: Ear Stated complaint: Ear Pain Time Seen by Provider: 03/15/25 19:35 Source: patient, RN notes reviewed and old records reviewed Mode of arrival: ambulatory Limitations: no limitations History of Present Illness HPI narrative: 34 year old female presents to [facility] care with complaints of right ear pain since yesterday with having nasal congestion with drainage for the past 2-3 days. Patient reports no known fevers,chills or body aches denies any acute cough or any shortness of breath. Patient reports that she has taken Tylenol and Claritin for her symptoms. MD complaint: right ear pain, nasal congestion and drainage Onset (ago): day(s) (2-3 days) Location: head (right ear,sinus congestion and drainage) and face Severity scale (1-10): 4 Treatments prior to arrival: other (Tylenol and Claritin) Related Data Home Medications ?Medication ?Instructions ?Recorded ?Confirmed ?Last Taken ?Type bupropion HCl 300 mg 24 hr tablet, mg PO 03/15/25 Unknown History extended release Allergies Allergy/AdvReac Type Severity Reaction Status Date / Time No Known Allergies Allergy Verified 02/12/25 19:04 Review of Systems Review of Systems: CONSTITUTIONAL: reports malaise, no chills, sweats, or fever. EYES: Denies visual changes, redness, or discharge. ENT: Reports rhinorrhea, congestion,no sinus pain, right otalgia and no sore throat. CARDIOVASCULAR: Denies chest pain, palpitations, or edema. RESPIRATORY: Reports rare cough.? Denies dyspnea. GASTROINTESTINAL: Denies abdominal pain, nausea, vomiting, diarrhea SKIN: Denies rash or itching. MUSCULOSKELETAL: Denies myalgia. NEUROLOGIC: Denies headache. All systems reviewed & are unremarkable except as noted in HPI and below PMFSH Past Medical History Medical History Hx of migraines delivery delivered Encounter for tubal ligation 10/23/16 Anemia Surgical History Surgical History H/O gastric sleeve History of orthopedic surgery L foot Family History Family History Other Breast cancer Maternal Aunt Ovarian cancer Maternal Aunt Other Diabetes mellitus Heart disease Hypertension Social History Social History Smoking status: Never smoker Alcohol intake: current Alcohol use details: 2/MONTH Substance use: never Substance use type: does not use Living arrangements: with family Spiritual care concerns: No Comments At time of signature, agree with nursing past medical, surgical, social and family history. There is no relevant family history pertinent to the presenting complaint Exam Narrative: GENERAL: Well-appearing, well-nourished,obese, and in no acute distress. HEAD: Normocephalic EYES: PERRLA, conjunctivae clear ENT: Nares clear, turbinates edematous and erythematous, clear discharge. Mucous membranes moist. TM pearly chaudhry with dull light reflex bilaterally; no tragal tenderness. Oropharynx erythematous without lesions. Tonsils not enlarged and without exudate, no drooling, no hoarseness, no trismus, uvula midline.post nasal drainage noted NECK: Supple. No lymphadenopathy CHEST: Clear to auscultation, breath sounds equal. No wheezing, rhonchi, rales, or stridor. No respiratory distress, speaks in full sentences.rare cough SAO2 100% on room air HEART: Regular rate and rhythm. No murmur heard. SKIN: Warm, dry, no rash. NEURO: Alert and oriented x3. PSYCH: Normal mood and affect Course Course Level of Care: Express Care Visit Vital Signs Vital signs: Vital Signs Temperature 36.1 C L 03/15/25 19:33 Pulse Rate 75 03/15/25 19:33 Respiratory Rate 20 03/15/25 19:33 Blood Pressure 152/103 H 03/15/25 19:33 Pulse Oximetry 100 03/15/25 19:33 Oxygen Delivery Room Air 03/15/25 19:33 Temperature 36.1 C L 03/15/25 19:33 Pulse Rate 75 03/15/25 19:33 Respiratory Rate 20 03/15/25 19:33 Blood Pressure 152/103 H 03/15/25 19:33 Pulse Oximetry 100 03/15/25 19:33 Oxygen Delivery Room Air 03/15/25 19:33 reviewed MDM MDM Narrative Medical decision making narrative: Patient presents with right ear otalgia and URI symptoms with no fevers chills or body aches Dx URI with treatment with OTC medications recommended. Patient is aware of diagnosis, understands and agrees to treatment plan.? Anticipatory guidance given.? Patient agrees to follow-up as directed and is aware of reasons to seek care at the emergency department. Differential Diagnosis Differential Diagnosis: Differential diagnostic considerations for upper respiratory infection include upper respiratory infection, croup, otitis media, sinusitis, viral infection, bronchitis, influenza, pharyngitis, strep, uvulitis.? Critical Care Time Critical Care Time Critical Care Time: No Discharge Plan Discharge Clinical Impression: URI, acute, Otalgia of right ear Patient Disposition: Home Condition: Stable Instructions: Upper Respiratory Infection (ED), Earache (ED) Additional Instructions: Increase fluids especially juices and water Gxou-snf-yuxcvud cough and cold medicine of your choice for your symptoms Zyrtec Claritin or Marylu daily Tylenol or ibuprofen for any fever pain heat to the face 20-30 minutes 4-6 times a day for pain Salt water gargles, throat lozenges or throat sprays as desired If your symptoms persist, change or worsen significantly before you can contact your personal physician then please, without delay, go to the emergency department for further evaluation. Follow-up with PCP in 7-10 days or sooner if needed Follow up with PCP soon in regards to your blood pressure which is elevated above threshold for referral. Blood pressure above 120/80 may indicate pre-hypertension.152/100 Patient Language: Slovenian Prescriptions: No Action bupropion HCl 300 mg tablet extended release 24 hr PO Follow-up/Referrals: Darryl,Johanna Luis [Primary Care Provider, Unknown] Time of Disposition: 19:50 Quality [place] Coma Scale Eyes: Open Verbal: Oriented and Alert Motor: Follows Commands [place] Coma Total Score: 15
== END 2025-03-15 20:01 | disposition home or self-care (01) ==
PROVIDERS: Emergency Provider Registered Nurse; PCP Nurse Practitioner
DX: J06.9 Acute upper respiratory infection, unspecified (principal); H92.01 Otalgia, right ear
CPT/HCPCS: 99211; G0463